=== PATIENT | male | born 1960 | race African-American/Black ===

== ENCOUNTER 2021-05-24 11:40 | Emergency (ER) | payer MEDICARE, MEDICAID, SELFPAY ==
[2021-05-24 11:40] VITALS: BP 168/110; PULSE 84; RESP 16; TEMP 36.8; O2SAT 97; BMI 36.2
--- NOTE | 2021-05-24 11:47 | CT_ITS ---
STUDY: CT CERVICAL SPINE WITHOUT CONTRAST REASON FOR EXAM: Male, 61 years old. Injury due to a fall. RADIATION DOSAGE (If Supplied By Facility): CTDIvol = ( 27.40 ) mGy, DLP = ( 672.36 ) mGycm TECHNIQUE: High resolution transaxial imaging was performed without contrast material. Sagittal and coronal images were reconstructed. Individualized dose optimization techniques were used for this CT. COMPARISON: None FINDINGS: Normal craniovertebral junction. Normal anterior atlantoaxial articulation. Normal odontoid process. There is straightening of the normal cervical lordosis. Normal vertebral bodies and posterior osseous elements. C2-3: Normal endplates. Normal disc height and morphology. Normal central canal and intervertebral neuroforamina. C3-4: Mild degree of disc space narrowing. Uncovertebral arthrosis. Mild degree of bilateral neural foraminal stenosis. C4-5: Mild degree of disc space narrowing. Uncovertebral arthrosis. Mild to moderate degree of bilateral neural foraminal stenosis. C5-6: Marked degree of disc space narrowing. Uncovertebral arthrosis. Facet joint osteoarthritis. Moderate degree of bilateral neural foraminal stenosis worse on the right side. C6-7: Marked degree of disc space narrowing. Spondylosis. Uncovertebral arthrosis. Bilateral neural foraminal stenosis. C7-T1: Normal endplates. Normal disc height and morphology. Normal central canal and intervertebral neuroforamina. Normal visualized soft tissue structures. CT/Spine Cervical without Contras IMPRESSION: Multilevel degenerative changes, as described above. Electronically Signed: Juan Ramon Munoz MD at 12:42 EDT , Service support ,
--- NOTE | 2021-05-24 11:47 | CT_ITS ---
STUDY: CT ABDOMEN AND PELVIS WITH CONTRAST REASON FOR EXAM: Male, 61 years old. Abdominal distention. Recent fall. RADIATION DOSAGE (If Supplied By Facility): CTDIvol = ( 23.53 ) mGy, DLP = ( 1974.28 ) mGycm TECHNIQUE: Transaxial images were obtained from the dome of the diaphragm to the symphysis pubis without oral contrast. IV 100mL Isovue-370 was administered. Sagittal and coronal images were reconstructed. Individualized dose optimization techniques were used for this CT. COMPARISON: None. FINDINGS: Minimal degree of increased markings at the lung bases suggestive of linear atelectasis and/or scarring. The visualized portions of the heart are within normal limits. There is decreased attenuation of the liver consistent with steatosis. Normal gallbladder and extrahepatic biliary system. Normal spleen. Normal pancreas. Normal bilateral adrenal glands. Normal right kidney. Normal left kidney. There is a small hiatal hernia. Mildly dilated fluid-filled small bowel loops. Large amount of fecal material is seen in the colon. There is gaseous distention of the transverse colon. The appendix is visualized and appears normal. Normal abdominal aorta. Normal inferior vena cava. Normal retroperitoneum. Normal urinary bladder. There are prostatic calcifications. Normal abdominal wall. There are mild degenerative changes of the visualized lumbar spine. Right intramammary tino fixation of the femur. CT/Abdomen/Pelvis W IV Cont ONLY IMPRESSION: Large amount of fecal material is seen throughout the colon. Minimally fluid distended small bowel loops. Fatty infiltration of the liver. Electronically Signed: Juan Ramon Munoz MD at 13:02 EDT , Service support ,
--- NOTE | 2021-05-24 11:47 | CT_ITS ---
STUDY: CT BRAIN WITHOUT CONTRAST REASON FOR EXAM: Male, 61 years old. Head injury following a fall. RADIATION DOSAGE (If Supplied By Facility): CTDIvol = ( 44.99 ) mGy, DLP = ( 812.98 ) mGycm TECHNIQUE: Transaxial CT imaging of the brain was performed without administration of intravenous contrast material. Individualized dose optimization techniques were used for this CT. COMPARISON: No relevant priors. FINDINGS: Normal soft tissue structures. Normal calvarium. There is mild cerebral atrophy with widening of the extra-axial spaces and ventricular dilatation. Normal white matter tracts of the cerebral hemispheres. There are small punctate calcifications of the basal ganglia which are seen in the aging brain as a normal variant. Normal brainstem. Normal cerebellum. There is no intracranial hemorrhage. There are no findings of an acute ischemic infarction. Nondisplaced nasal fracture. CT/Brain/Head without Contrast IMPRESSION: Chronic involutional changes of the brain. Nondisplaced nasal fracture. Electronically Signed: Juan Ramon Munoz MD at 12:40 EDT , Service support ,
--- NOTE | 2021-05-24 11:48 | EDS_ITS ---
HPI History of Present Illness Chief Complaint: Head Injury Informant: patient Narrative Narrative: 61-year-old male brought in by EMS from long-term care [facility]. Reportedly has been more lethargic this week and this morning some labs that were drawn yesterday morning returned and showed a elevated ammonia level (57). He apparently fell this morning striking his face on a metal bench. He then had some vomiting. They held his psychiatric medications so that would not mask evaluation for head injury. EMS notes he was initially combative for them but in route calm down and fell asleep. EMS notes the laceration on his nose was glued at the facility. Patient according to the chart has a history of alcohol abuse but no formal diagnosis of cirrhosis. Caregiver in the room states that his abdomen seems more distended than normal. [facility] Medical History (Updated 05/24/21 @ 13:[address] Gabriel Trinidad, ) Alcohol abuse Anemia Antisocial personality disorder Anxiety Bipolar disorder CAD (coronary artery disease) Chronic ischemic heart disease Cognitive communication disorder Constipation COPD (chronic obstructive pulmonary disease) Dementia Depression Gout Hypertension Impulse disorder Incontinence of urine Insomnia Mild intellectual disabilities Muscle weakness Obesity Other specified degenerative disorders of nervous system in diseases classified elsewhere Psychotic disorder PVD (peripheral vascular disease) Schizoaffective disorder Schizophrenia Substance abuse Urinary tract infection Violent behavior Home Medications allopurinol 300 mg PO DAILY 05/24/21 [History Last Taken Unknown] aspirin 81 mg PO DAILY 05/24/21 [History Last Taken Unknown] atorvastatin 40 mg PO QHS 05/24/21 [History Last Taken Unknown] benztropine 1 mg PO BID 05/24/21 [History Last Taken Unknown] carvedilol 12.5 mg PO BID 05/24/21 [History Last Taken Unknown] cholecalciferol (vitamin D3) 1,250 mcg PO QWEEK 05/24/21 [History Last Taken Unknown] clonazepam [Klonopin] 1 mg PO 4X/DAY 05/24/21 [History Last Taken Unknown] diltiazem HCl 180 mg PO DAILY 05/24/21 [History Last Taken Unknown] lactulose 20 g PO BID 05/24/21 [History Last Taken Unknown] lamotrigine [Lamictal] 150 mg PO BID 05/24/21 [History Last Taken Unknown] olanzapine 10 mg PO BID 05/24/21 [History Last Taken Unknown] oxcarbazepine 300 mg PO BID 05/24/21 [History Last Taken Unknown] quetiapine 400 mg PO BID 05/24/21 [History Last Taken Unknown] tamsulosin 0.4 mg PO DAILY 05/24/21 [History Last Taken Unknown] trazodone 50 mg PO BID 05/24/21 [History Last Taken Unknown] venlafaxine 150 mg PO DAILY 05/24/21 [History Last Taken Unknown] ziprasidone HCl [Geodon] 20 mg PO Q6H 05/24/21 [History Last Taken Unknown] ziprasidone mesylate [Geodon] 20 mg IM Q6H PRN 05/24/21 [History Last Taken Unknown] Allergy/AdvReac Type Severity Reaction Status Date / Time haloperidol [From Haldol] Allergy NEEDS Verified 05/24/21 11:45 FOLLOW-UP Social History (Updated 05/24/21 @ 11:54 by Rosa Maria Washington) housing: detention Smoking Status: Current every day smoker tobacco type: cigarettes substance use type: crack/cocaine ROS ROS ED Review of Systems ROS Unobtainable: due to mental status EXAM Physical Exam Const Vital Signs: 05/24/21 11:40 05/24/21 11:45 05/24/21 11:49 Temperature 98.3 F 98.3 F Temperature Source Oral Oral Pulse Rate 84 84 Respiratory Rate 16 16 Respiratory Effort Normal Non-Labored Blood Pressure 168/110 H 168/110 H Blood Pressure Mean 129 129 Pulse Ox 97 97 Oxygen Delivery Method Room Air Room Air 05/24/21 13:13 Temperature Temperature Source Pulse Rate 86 Respiratory Rate 16 Respiratory Effort Blood Pressure 162/89 H Blood Pressure Mean 113 Pulse Ox Oxygen Delivery Method Positive well nourished and well developed General Appearance ED: well developed HEENT Reports normocephalic, head/scalp atraumatic and moist mucous membranes HEENT Narrative: There is a laceration to the bridge of the nose that has been glued. There is no septal hematoma noted. Patient is a dentulous. Mild contusion noted on the right lower lip midface appears stable trauma Eyes PERRL and EOMs intact bilaterally Neck no lymphadenopathy, supple and no JVD Resp normal respiratory effort and clear to auscultation bilaterally Cardio regular rate, regular rhythm and no murmurs GI normal to inspection, nondistended, normoactive bowel sounds and non-tender Palpation: soft Back/Spine no CVA tenderness and normal ROM Extremity normal to inspection General Extremety ED: Negative for edema General Extremity: Negative for edema Neuro CN's II-XII intact bilaterally Neuro Narrative: Patient can follow commands. Sensorium / Orientation: alert Motor Exam: strength 5/5 throughout Psych Mood & Affect: Negative for depressed or tearful Skin no rashes or lesions noted and no wounds MDM MDM MDM Narrative Medical decision making narrative: CT the brain and cervical spine demonstrated a nasal fracture. No intracranial hemorrhage or cervical spine fracture. CT abdomen pelvis is consistent with constipation and increased air. His CBC shows a hemoglobin 12.6 but normal platelets. Liver enzymes are normal. His a ammonia level is normal at 15. The wound was already glued before he arrived. Patient will be discharged home instructions to follow-up with his doctor return if worsening or concerns Lab Data Attestation: I reviewed the patient's lab results. Labs: Laboratory Results - last 24 hr 05/24/21 05/24/21 05/24/21 12:05 12:05 12:05 WBC 8.3 RBC 4.35 L Hgb 12.6 L Hct 39.2 L MCV 90.1 MCH 29.0 MCHC 32.1 RDW Std Deviation 46.0 H RDW Coeff of José 13.9 Plt Count 243 MPV 9.7 Immature Gran % (Auto) 0.700 Neut % (Auto) 63.8 Lymph % (Auto) 17.3 L [place] % (Auto) 10.4 H Eos % (Auto) 7.4 H Baso % (Auto) 0.4 Absolute Neuts (auto) 5.3 Absolute Lymphs (auto) 1.44 Nucleated RBC % 0 PT 14.0 INR 1.1 APTT 26.9 Sodium 143 Potassium 3.4 L Chloride 105 Carbon Dioxide 33.0 H Anion Gap 5 BUN 18 Creatinine 1.31 H Estim Creat Clear Calc 66.92 Est GFR (MDRD) Af Amer 72 Est GFR (MDRD) Non-Af 59 L BUN/Creatinine Ratio 13.7 Glucose 125 H Calcium 8.8 Total Bilirubin 0.40 AST 21 ALT 48 Alkaline Phosphatase 109 Ammonia Total Protein 7.3 Albumin 3.8 Globulin 3.5 Albumin/Globulin Ratio 1.1 05/24/21 12:05 WBC RBC Hgb Hct MCV MCH MCHC RDW Std Deviation RDW Coeff of José Plt Count MPV Immature Gran % (Auto) Neut % (Auto) Lymph % (Auto) [place] % (Auto) Eos % (Auto) Baso % (Auto) Absolute Neuts (auto) Absolute Lymphs (auto) Nucleated RBC % PT INR APTT Sodium Potassium Chloride Carbon Dioxide Anion Gap BUN Creatinine Estim Creat Clear Calc Est GFR (MDRD) Af Amer Est GFR (MDRD) Non-Af BUN/Creatinine Ratio Glucose Calcium Total Bilirubin AST ALT Alkaline Phosphatase Ammonia 15.0 Total Protein Albumin Globulin Albumin/Globulin Ratio Radiography Diagnostic Testing: Radiology Impression Abdomen/Pelvis CT 05/24/21 11:47 IMPRESSION: Large amount of fecal material is seen throughout the colon. Minimally fluid distended small bowel loops. Fatty infiltration of the liver. Electronically Signed: Juan Ramon Munoz MD at 13:02 EDT , Service support , Brain CT 05/24/21 11:47 IMPRESSION: Chronic involutional changes of the brain. Nondisplaced nasal fracture. Electronically Signed: Juan Ramon Munoz MD at 12:40 EDT , Service support , Cervical Spine CT 05/24/21 11:47 IMPRESSION: Multilevel degenerative changes, as described above. Electronically Signed: Juan Ramon Munoz MD at 12:42 EDT , Service support , Discharge Plan Triage Chief Complaint: Head Injury ED Provider: Gabriel Trinidad Dx/Rx/DC Orders Clinical Impression: Fracture, nasal, Laceration of nose, Constipation Instructions: ED Nose Fracture, with X-Ray Prescriptions: No Action atorvastatin 40 mg Tablet 40 mg PO QHS RF: 0 lamotrigine [Lamictal] 150 mg Tablet 150 mg PO BID RF: 0 carvedilol 12.5 mg Tablet 12.5 mg PO BID RF: 0 diltiazem HCl 180 mg Capsule,Extended Release 24 Hr 180 mg PO DAILY RF: 0 trazodone 50 mg Tablet 50 mg PO BID RF: 0 clonazepam [Klonopin] 1 mg Tablet 1 mg PO 4X/DAY RF: 0 venlafaxine 150 mg Capsule,Extended Release 24hr 150 mg PO DAILY RF: 0 olanzapine 10 mg Tablet 10 mg PO BID RF: 0 oxcarbazepine 300 mg Tablet 300 mg PO BID RF: 0 ziprasidone HCl [Geodon] 20 mg Capsule 20 mg PO Q6H RF: 0 tamsulosin 0.4 mg Capsule 0.4 mg PO DAILY RF: 0 benztropine 1 mg Tablet 1 mg PO BID RF: 0 aspirin 81 mg Tablet,Chewable 81 mg PO DAILY RF: 0 allopurinol 300 mg Tablet 300 mg PO DAILY RF: 0 ziprasidone mesylate [Geodon] 20 mg/mL (final conc.) Recon Soln 20 mg IM Q6H PRN (Reason: AGITATION) RF: 0 quetiapine 400 mg Tablet 400 mg PO BID RF: 0 cholecalciferol (vitamin D3) 1,250 mcg (50,000 unit) Capsule 1,250 mcg PO QWEEK RF: 0 lactulose 20 gram/30 mL Solution 20 g PO BID RF: 0 Primary Care Provider: Remington Kellogg Referrals: Remington Kellogg MD [Primary Care Provider] - As soon as possible Activity Restrictions/Additional Instructions: A copy of your labs will be sent with your paperwork. You have a nasal fracture that is not displaced. There is no signs of intracranial bleeding skull fracture or cervical spine fracture. Your ammonia level was normal. Disposition Disposition: Home, Self Care
[2021-05-24 11:49] VITALS: BP 168/110; PULSE 84; RESP 16; TEMP 36.8; O2SAT 97
[2021-05-24 12:17] LABS: Absolute Lymphocyte Count 1.44 X10^3/uL (0.83-4.51); Absolute Neutrophil Count 5.3 X10^3/uL (2.0-7.7); Basophil# 0.03 X10^3/uL; Basophil% 0.4 % (0-1); Eosinophil# 0.62 X10^3/uL; Eosinophils% 7.4 % (0-5); Hematocrit 39.2 % (40-54); Hemoglobin 12.6 g/dL (13.0-16.5); Lymphocyte # 1.44 X10^3/ul (0.83-4.51); Lymphocyte % 17.3 % (19-41); Mean Corp Hgb Conc 32.1 g/dL (32-36); Mean Corpuscular Volume 90.1 fL (80-94); Mean Platelet Vol. 9.7 fl (6.2-12.0); Monocyte# 0.87 X10^3/uL; Monocyte% 10.4 % (0-10); NRBC Flagged by Analyzer 0 % (0-5); Neutrophil # 5.31 X10^3/uL (2.7-7.7); Neutrophil % 63.8 % (47-70); Platelet Count 243 K/mm3 (150-450); RBC Distribution Width CV 13.9 % (11.6-14.6); Red Blood Count 4.35 M/mm3 (4.6-6.2); White Blood Count 8.3 K/mm3 (4.4-11.0)
[2021-05-24 12:21] LABS: International Normalized Ratio 1.1; Partial Thromboplast Time 26.9 Seconds (24.1-36.2)
[2021-05-24 12:28] LABS: ALB/GLOB Ratio 1.1 RATIO (0.9-2.4); AST(SGOT) 21 U/L (15-37); Alanine Aminotransfer ALT/SGPT 48 U/L (16-61); Albumin, Serum 3.8 g/dL (3.2-5.0); Alkaline Phosphatase 109 U/L (45-117); Anion Gap 5 (5-15); BUN 18 mg/dL (7-18); BUN/Creat Ratio 13.7 RATIO (10-20); Calcium,Total 8.8 mg/dL (8.5-10.1); Chloride 105 mmol/L (98-107); Creatinine, Serum 1.31 mg/dL (0.70-1.30); EST Glomerular Filtration Rate 59 mL/min (>60); Est Glom Filt Rate - Afr Amer 72 mL/min (>60); Estimated Creatinine Clearance 66.92 ml/min; Globulin 3.5 g/dL (2.2-4.2); Glucose 125 mg/dL (74-106); Potassium 3.4 mmol/L (3.5-5.1); Protein, Total 7.3 g/dL (6.4-8.2); Sodium Level 143 mmol/L (136-145)
[2021-05-24 13:13] VITALS: BP 162/89; PULSE 86; RESP 16
[2021-05-24 13:38] VITALS: BP 140/81; PULSE 85; RESP 19
--- NOTE | 2021-05-24 13:45 | ED.RN ---
REPORT GIVEN TO FACILITY STAFF MEMBER AT BEDSIDE.
--- NOTE | 2021-05-24 13:49 | NURSING ---
CALLED [facility], ETA IS 90 MIN
--- NOTE | 2021-05-24 16:07 | NURSING ---
PHYSICANS CALLED. CREW IS 30 MIN AWAY
== END 2021-05-24 16:52 | disposition home or self-care (01) ==
PROVIDERS: Emergency Provider Emergency Medicine; PCP Family Medicine
DX: S02.2XXA Fracture of nasal bones, initial encounter for closed fracture (principal); S01.21XA Laceration without foreign body of nose, initial encounter; K59.00 Constipation, unspecified; I25.10 Atherosclerotic heart disease of native coronary artery without angina pectoris; F17.210 Nicotine dependence, cigarettes, uncomplicated; I10 Essential (primary) hypertension; Z79.82 Long term (current) use of aspirin; Z79.899 Other long term (current) drug therapy; W19.XXXA Unspecified fall, initial encounter
CPT/HCPCS: 70450; 72125; 74177; 80053; 82140; 85025; 85610; 85730; 99285; Q9967; A4216

== ENCOUNTER → 2022-01-23 | Outpatient (REF) | payer SELFPAY | END | disposition home or self-care (01) | LOC: OLS.AHA 03:51 | PROVIDERS: PCP Family Medicine; Visit Provider Family Medicine | DX: D64.9 Anemia, unspecified (principal); F20.0 Paranoid schizophrenia; J44.9 Chronic obstructive pulmonary disease, unspecified; E72.20 Disorder of urea cycle metabolism, unspecified | CPT/HCPCS: 82140 ==

== ENCOUNTER → 2025-11-12 | Outpatient (CLI) | payer MEDICARE, MEDICAID, SELFPAY ==
--- NOTE | 2025-11-12 08:03 | CT_ITS ---
PROCEDURE: ABDOMEN/PELVIS WITH CONTRAST 11/12/2025 REASON FOR EXAM: MODERATE PROTEIN-CALORIE MALNUTRITION TECHNIQUE: Procedure Code: [id number] Modality: CT Procedure: ABDOMEN/PELVIS WITH CONTRAST Coronal and Sagittal reconstruction series were provided. CONTRAST: Isovue 370 VOLUME: 75 mL One or more dose reduction techniques were used (e.g., Automated exposure control, adjustment of the mA and/or kV according to patient size, use of iterative reconstruction technique. RADIATION DOSE SUMMARY: CTDlvol: 17.73 mGy DLP: 999.28 mGycm COMPARISON: CT abdomen and pelvis 05/24/2021. FINDINGS: Lung bases: Atelectasis in the lung bases. Liver: Unremarkable. Gallbladder: Unremarkable. Spleen: Unremarkable. Pancreas: Unremarkable. Adrenals: Unremarkable. Kidneys: No hydronephrosis. No nephrolithiasis. Bladder: Unremarkable. Reproductive Organs: Unremarkable. Bowel: No bowel wall thickening. No bowel obstruction. Large amount of fecal load. Appendix: Unremarkable. Lymph nodes: No lymphadenopathy. Vasculature: No aneurysm. Peritoneum / Retroperitoneum: No free air or free fluid. Bones: No acute bony abnormalities. CT/Abdomen/Pelvis WITH Contrast IMPRESSION: Unremarkable CT scan of the abdomen and pelvis. Reading Location: [facility]
--- OUTSIDE RECORDS SUMMARY | 2025-11-12 08:12 | XMS RPT_ITS | CCD ---
Author Organization [facility] Care Team Providers Care Technical Staff Engineer Name Role Phone [facility] Lino Primary Care Provider CELESTINA, LINO Primary Care Unavailable CLIMO, ANDREI Referring Unavailable CLIMO, ANDREI Referring Unavailable BIROS, LINO Primary Care Unavailable CLIMO, ANDREI Referring Unavailable BIROS, LINO Primary Care Unavailable CLIMO, ANDREI Referring Unavailable BIROS, LINO Primary Care Unavailable CLIMO, ANDREI Referring Unavailable BIROS, LINO Primary Care Unavailable BIROS, LINO Primary Care Unavailable JON KERR Referring Unavailable BIROS, LINO Primary Care Unavailable JON KERR Referring Unavailable BIROS, LINO Primary Care Unavailable JON KERR Referring Unavailable BIROS, LINO Primary Care Unavailable CLIMO, ANDREI Referring Unavailable BIROS, LINO Primary Care Unavailable CLIMO, ANDREI Referring Unavailable BIROS, LINO Primary Care Unavailable CLIMO, ANDREI Referring Unavailable CLIMO, ANDREI Referring Unavailable BIROS, LINO Primary Care Unavailable CLIMO, ANDREI Referring Unavailable BIROS, LINO Primary Care Unavailable CLIMO, ANDREI Referring Unavailable BIROS, LINO Primary Care Unavailable BIROS, LINO Primary Care Unavailable JON KERR Referring Unavailable CLIMO, ANDREI Referring Unavailable BIROS, LINO Primary Care Unavailable BIROS, LINO Primary Care Unavailable CLIMO, ANDREI Referring Unavailable CLIMO, ANDREI Referring Unavailable BIROS, LINO Primary Care Unavailable BIROS, LINO Primary Care Unavailable CLIMO, ANDREI Referring Unavailable BIROS, LINO Primary Care Unavailable CLIMO, ANDREI Referring Unavailable CLIMO, ANDREI Referring Unavailable BIROS, LINO Primary Care Unavailable BIROS, LINO Primary Care Unavailable JON KERR Referring Unavailable CLIMO, ANDREI Referring Unavailable BIROS, LINO Primary Care Unavailable BIROS, LINO Primary Care Unavailable CLIMO, ANDREI Referring Unavailable BIROS, LINO Primary Care Unavailable CLIMO, ANDREI Referring Unavailable CLIMO, ANDREI Referring Unavailable BIROS, LINO Primary Care Unavailable BIROS, LINO Primary Care Unavailable CLIMO, ANDREI Referring Unavailable Biros, Lino Primary Care Provider [phone] BIROS, LINO Primary Care Unavailable VIANEY, HARRIET Attending Unavailable VIANEY HARRIET Admitting Unavailable BIROS, LINO Primary Care Unavailable CURRY DAVIS Attending Unavailable Claudinechka, Dirk N Primary Care Provider [phone] URBANO DIRK N Primary Care Unavailable BANEGAS, PAXTON KGómez Admitting Unavailable BANEGAS, PAXTON K. Consulting Unavailable BANEGAS, PAXTON KGómez Attending Unavailable RACHELLE SHAIKH Consulting Unavailable LAURYN COTTO Attending Unavailable CLAUDINECHKA, DIRK N Primary Care Unavailable SYSTEM, PROVIDER NOT IN Referring Unavaila ble CLAUDINECHKA, DIRK N Primary Care Unavailable ILLERIC Admitting Unavailable REVILLERIC Attending Unavailable Bir, Lino Primary Care Provider VIPUL SANTOS Admitting Unavailable VIPUL SANTOS Attending Unavailable VIPUL SANTOS Surgeon Unavailable CLIMO, ANDREI Primary Care Unavailable CLIMO, ANDREI Referring Unavailable AR Procedure Practitioner Unavailab SOLOMON Moffett Surgeon Unavailable AR Procedure Practitioner Unavailab Vipul Trejo Primary Care Unavailable Vipul Kellogg Attending Unavailable Vipul Kellogg Attending Unavailable Vipul Kellogg Primary Care Unavailable Allergies Allergy Classification Reported Allergen(s) Allergy Type Date of Onset Reaction(s) Facility Haloperidol (1 source) Haloperidol; Translations: [HALOPERIDOL] Drug Allergy [address] [facility] Repository (20 sources) Haloperidol Drug Allergy 4 Other (See Comments) [place] (20 sources) Haloperidol And Related Propensity to adverse reactions to drug 3 [place] (2 sources) Haloperidol Drug Allergy 1 NEEDS FOLLOW-UP [facility] (1 source) Haloperidol Drug Allergy 7 [facility] Repository (1 source) Haloperidol Drug Allergy 1 [facility] Repository Medications Current Medications Medication Drug Class(es) Dates Sig (Normalized) Sig (Original) allopurinol 300 mg oral tablet (3 sources) Xanthine Oxidase Inhibitor Start: 05-24-2021 take 300 mg by mouth once daily Allopurinol Active 300 MG PO DAILY May 24, 2021 12:05pm take 1 tablet by mouth once starla y allopurinoL (ZYLOPRIM) 300 MG tablet Take 300 mg by mouth daily . 0 Active aspirin 81 mg chewable tablet (3 sources) Platelet Aggregation Inhibitor, Nonsteroidal Anti-inflammatory Drug Start: 05-24-2021 take 81 mg by mouth once daily Aspirin Active 81 MG PO DAILY May 24, 2021 12:05pm take 1 tablet by mouth once starla y aspirin 81 MG EC tablet Take 81 mg by mouth daily . 0 Active atorvastatin 40 mg oral tablet (3 sources) HMG-CoA Reductase Inhibitor Start: 05-24-2021 take 40 mg by mouth at bedtime Atorvastatin Active 40 MG PO AT BEDTIME May 24, 2021 12:05pm take 1 tablet by mouth at bedtim e atorvastatin (LIPITOR) 40 MG tablet Take 40 mg by mouth at bedtime . 0 Active benztropine mesylate 1 mg oral tablet (20 sources) Anticholinergic, Antihistamine Start: 05-24-2021 take 1 mg by mouth twice daily Benztropine Active 1 MG PO TWICE A DAY May 24, 2021 12:05pm take 1 tablet by mouth twice daisy ly benztropine (COGENTIN) 1 MG tablet Take 1 mg by mouth 2 (two) times a day . 0 Active bisacodyl 10 mg rectal suppository (1 source) Stimulant Laxative take 10 mg rectal route once daily as needed for constipation bisacodyl (DULCOLAX) [address] 10 mg rectally daily as needed for Constipation (if no relief from MOM) 0 Active carvedilol 12.5 mg oral tablet (3 sources) alpha-Adrenergic Sherley, beta-Adrenergic Sherley Start: 05-24-20 take 12.5 mg by mouth twice daily Carvedilol Active 12.5 MG PO TWICE A DAY May 24, 2021 12:05pm take 1 tablet by mouth twice daisy ly carvediloL (COREG) 12.5 MG tablet Take 12.5 mg by mouth 2 (two) times a day . 0 Active cholecalciferol 1.25 mg oral capsule (1 source) Vitamin D Start: 05-24-2021 take 1250 ug by mouth every week Cholecalciferol (Vitamin D3) Active 1250 MCG PO EVERY WEEK May 24, 2021 12:05pm clonazePAM 1 mg oral tablet (20 sources) Benzodiazepine Start: 05-24-2021 take 1 tablet by mouth four times daily Clonazepam (Klonopin) 1 mg Tablet Active 1 MG PO 4 TIMES DAILY May 24, 2021 12:05pm take 1 tablet by mouth three charley es daily clonazePAM (KLONOPIN) 1 MG tablet Take 1 mg by mouth 3 times daily. 0 Active take 2 tablets by mouth four charley es daily clonazePAM (KLONOPIN) 0.5 MG tablet Take 1 mg by mouth 4 times daily . 0 Active 24 hr desvenlafaxine succinate 100 mg extended release oral tablet (20 sources) Serotonin and Norepinephrine Reuptake Inhibitor take 1 tablet by mouth once daily desvenlafaxine succinate (PRISTIQ) 100 MG TB24 extended release tablet Take 100 mg by mouth daily 0 Active 24 hr dilTIAZem hydrochloride 180 mg extended release oral capsule (20 sources) Calcium Channel Sherley Start: take 180 mg by mouth once daily Diltiazem Hcl Active 180 MG PO DAILY May 24, 2021 12:05pm Start: 03-01-2021 End: 03-31-2021 take 1 capsule by mouth once daily diltiazem (CARDIZEM CD) 180 MG 24 hr capsule Take 1 (one) capsule (180 mg total) by mouth daily Start: 03/01/21. 30 capsule 0 03/01/2021 03/31/2021 Active End: 01-26-2021 take 1 capsule by mouth once daily diltiazem (CARDIZEM CD) 180 MG extended release capsule Take 180 mg by mouth daily 0 01/26/2021 Discontinued (LIST CLEANUP) End: 01-26-2021 take 1 tablet by mouth four times daily diltiazem (CARDIZEM) 90 MG tablet Take 90 mg by mouth 4 times daily 0 01/26/2021 Discontinued (LIST CLEANUP) lactulose 667 mg/ml oral solution (20 sources) Osmotic Laxative Start: 05-24-2021 take 20 g by mouth twice daily Lactulose Active 20 GM PO TWICE A DAY May 24, 2021 12:05pm take 20 g by mouth twice daily l actulose (CHRONULAC) 10 GM/15ML solution Take 20 g by mouth 2 times daily 0 Active take 30 g by mouth three times d aily lactulose (CHRONULAC) 10 GM/15ML solution Take 30 g by mouth 3 times daily 0 Active lamoTRIgine 150 mg oral tablet (3 sources) Mood Stabilizer, Anti-epileptic Agent Start: 05-24-2021 take 1 tablet by mouth twice daily Lamotrigine (Lamictal) 150 mg Tablet Active 150 MG PO TWICE A DAY May 24, 2021 12:05pm take 1 tablet by mouth twice daisy ly lamoTRIgine (LAMICTAL) 150 MG tablet Take 150 mg by mouth 2 (two) times a day . 0 Active lubiprostone 0.024 mg oral capsule (2 sources) Chloride Channel Activator take 1 capsule by mouth once daily at breakfast lubiprostone (AMITIZA) 24 MCG capsule Take 24 mcg by mouth daily with breakfast . 0 Active magnesium hydroxide 80 mg/ml oral suspension (1 source) take 30 mL by mouth once daily as needed for constipation magnesium hydroxide (MILK OF MAGNESIA) 400 MG/5ML suspension Take 30 mLs by mouth daily as needed for Constipation 0 Active OLANZapine 10 mg oral tablet (20 sources) Atypical Antipsychotic Start: 021 take 10 mg by mouth twice daily Olanzapine Active 10 MG PO TWICE A DAY May 24, 2021 12:05pm Start: 10-31-2015 End: 01-26-2021 take 1 tablet by mouth once daily OLANZapine (ZYPREXA) 20 MG tablet Take 1 tablet by mouth nightly 30 tablet 0 10/31/2015 01/26/2021 Discontinued (DOSE ADJUSTMENT) take 1 tablet by tu th twice daily OLANZapine (ZYPREXA) 10 MG tablet Take 10 mg by mouth 2 (two) times a day . 0 Active OXcarbazepine 300 mg oral tablet (3 sources) Anti-epileptic Agent Start: 05-24-2021 take 300 mg by mouth twice daily Oxcarbazepine Active 300 MG PO TWICE A DAY May 24, 2021 12:05pm take 1 tablet by mouth twice daisy ly OXcarbazepine (TRILEPTAL) 300 MG tablet Take 300 mg by mouth 2 (two) times a day . 0 Active polyethylene glycol 3350 92804 mg powder for oral solution (1 source) Osmotic Laxative take 17 g by mouth twice daily, then take 17 g by mouth polyethylene glycol (GLYCOLAX) 17 GM/SCOOP powder Take 17 g by mouth 2 times daily 0 Active QUEtiapine 400 mg oral tablet (3 sources) Atypical Antipsychotic Start: 05-24-20 take 400 mg by mouth twice daily Quetiapine Active 400 MG PO TWICE A DAY May 24, 2021 12:05pm take 1 tablet by mouth twice daisy ly QUEtiapine (SEROQUEL) 400 MG tablet Take 400 mg by mouth 2 (two) times a day . 0 Active sennosides, chcf 8.6 mg oral tablet (1 source) take 2 tablets by mouth twice daily senna (SENOKOT) 8.6 MG tablet Take 2 tablets by mouth 2 times daily 0 Active tamsulosin hydrochloride 0.4 mg oral capsule (3 sources) alpha-Adrenergic Sherley Start: 05-24-2021 take 0.4 mg by mouth once daily Tamsulosin Active 0.4 MG PO DAILY May 24, 2021 12:05pm take 1 capsule by [facility] once daily before breakfast tamsulosin (FLOMAX) 0.4 mg capsule Take 0.4 mg by mouth every morning before breakfast . 0 Active traZODone hydrochloride 50 mg oral tablet (1 source) Serotonin Reuptake Inhibitor Start: 05-24-2021 take 50 mg by mouth twice daily Trazodone Active 50 MG PO TWICE A DAY May 24, 2021 12:05pm 24 hr venlafaxine 150 mg extended release oral capsule (2 sources) Serotonin and Norepinephrine Reuptake Inhibitor Start: 05-24-2021 take 150 mg by mouth once daily Venlafaxine Active 150 MG PO DAILY May 24, 2021 12:05pm Start: 03-01-2021 End: 03-31-2021 take 1 capsule by mouth once daily at breakfast venlafaxine (EFFEXOR-XR) 150 MG 24 hr capsule Take 1 (one) capsule (150 mg total) by mouth daily with breakfast Start: 03/01/21. 30 capsule 0 03/01/2021 03/31/2021 Active ziprasidone 20 mg oral capsule (2 sources) Atypical Antipsychotic Start: 05-24-2021 take 1 capsule by mouth every six hours Ziprasidone Hcl (Geodon) 20 mg Capsule Active 20 MG PO EVERY 6 HOURS May 24, 2021 12:05pm Start: 05-24-2021 inject 20 mg by intr amuscular injection every six hours Ziprasidone Mesylate (Geodon) 20 mg/mL (final conc.) Recon Soln Active 20 MG IM EVERY 6 HOURS May 24, 2021 12:05pm Completed/Discontinued Medications Medication Drug Class(es) Dates Sig (Normalized) Sig (Original) acetaminophen 325 mg oral tablet (1 source) End: 02-02-20 take 2 tablets by mouth every six hours as needed for pain acetaminophen (TYLENOL) 325 MG tablet Take 650 mg by mouth every 6 hours as needed for Pain or Fever 0 02/01/2021 Discontinued (Stop Taking at Discharge) cranberry preparation 450 mg oral tablet (1 source) Non-Standardized Food Allergenic Extract, Non-Standardized Plant Allergenic Extract End: 02-02-20 take 1 tablet by mouth three times daily Cranberry 450 MG TABS Take 450 mg by mouth 3 times daily 0 02/01/2021 Discontinued (Stop Taking at Discharge) hydroCHLOROthiazide 25 mg oral tablet (20 sources) Thiazide Diuretic End: 01-27-20 21 take 1 tablet by mouth once daily hydrochlorothiazide (HYDRODIURIL) 25 MG tablet Take 25 mg by mouth daily 0 01/26/2021 Discontinued (LIST CLEANUP) paliperidone (20 sources) Atypical Antipsychotic End: 01-27-20 21 take 1 tablet by mouth once daily in the morning paliperidone (INVEGA) 6 MG extended release tablet Take 6 mg by mouth every morning 0 01/26/2021 Discontinued (LIST CLEANUP) End: 01-26-2021 Paliperidone Palmitate (INVE GA SUSTENNA IM) Inject into the muscle every 30 days 0 01/26/2021 Discontinued (LIST CLEANUP) Paliperidone Pal mitate (INVEGA SUSTENNA IM) Inject into the muscle every 30 days 0 Active risperiDONE 3 mg oral tablet (20 sources) Atypical Antipsychotic End: 01-26-2021 take 1 tablet by mouth twice daily risperiDONE (RISPERDAL) 3 MG tablet Take 3 mg by mouth 2 times daily 0 01/26/2021 Discontinued (LIST CLEANUP) valproic acid 50 mg/ml oral solution (20 sources) Mood Stabilizer, Anti-epileptic Agent End: 01-26-2021 take 15 mL by mouth three times daily Valproate Sodium (VALPROIC ACID) 250 MG/5ML SOLN Take 15 mLs by mouth 3 times daily 0 01/26/2021 Discontinued (LIST CLEANUP) Problems Active Problems Problem Classification Problem Date Documented Da te Episodic/Chronic Alcohol-related disorders (20 sources) Alcohol dependence; Translations: [Alcohol dependence] Onset: 11-12-2013 08-29-2014 Chronic Anxiety disorders (2 sources) Anger reaction; Translations: [Anger reaction] Chronic Open wounds of head; neck; and trunk (1 source) Laceration of nose; Translations: [Laceration without foreign body of nose, initial encounter] Episodic Other gastrointestinal disorders (1 source) Constipation; Translations: [Constipation, unspecified] Episodic Schizophrenia and other psychotic disorders (20 sources) Schizoaffective disorder; Translations: [Psychotic disorder] Onset: 06-21-2014 Resolved: 08-15-2014 10-10-2015 Chronic Skull and face fractures (1 source) Fractured nasal bones; Translations: [Fracture of nasal bones, initial encounter for closed fracture] Episodic Substance-related disorders (20 sources) Cocaine dependence; Translations: [Cannabis dependence] Onset: 12-11-2013 Resolved: 12-19-2013 08-29-2014 Chronic Past or Other Problems Problem Classification Problem Date Documented Da te Episodic/Chronic Mood disorders (20 sources) 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 Comment on above: Order Comment: This test was performed under the FDA's Emergency Use Authorization (EUA). Testing was performed using the [employer] Babs SARS-CoV-2 RT-PCR AND Influenza A/B Nucleic Acid Test on the Babs Yaa System. This test has not been approved for use in asymptomatic patients and its performance in this patient population has not been evaluated. Negative results do not rule out the presence of SARS-CoV-2, influenza A, and/or influenza B. Fact sheets for the EUA can be found at the following links: For Healthcare Providers: https://www.fda.gov/media/984924/download For Patients: https://www.fda.gov/media/947944/download Performed By: #### L [id number] #### [facility] [address] [place], [place] [address] Krishna Morrison M.D. [id number] CBC with Diffon 01-26-2021 Abs. Basophil 0.00 k/uL Normal 0.0-0.2 [facility] Comment on above: Performed By: #### A RENNY FRANK, BEKAH #### [facility] [address] [place] [address]. [place] [address] Cash Accountant: Erasto Selby DO Abs.Neutrophil (Seg) 2.30 k/uL Normal 1.3-9.1 [facility] Comment on above: Performed By: #### A RENNY FRANK, CDP #### [facility] [address] [place] [phone] Cash Accountant: Erasto Selby DO Basophils/100 WBC (Bld) 1 % Normal 0-2 [facility] Comment on above: Performed By: #### A RENNY FRANK, CDP #### [facility] [address] [place] [phone] Cash Accountant: Erasto Selby DO Eosinophils (Bld) [#/Vol] 0.30 10*3/uL Normal 0.0-0.4 [facility] Comment on above: Performed By: #### A TALI FRANKX, CDP #### [facility] [place] [address] Cash Accountant: Erasto Selby DO Eosinophils/100 WBC (Bld) 4 % Normal 0-4 [facility] Comment on above: Performed By: #### A TALI FRANKX, CDP #### [facility] [place] [address] Cash Accountant: Erasto Selby DO Erythrocyte distribution width (RBC) [Ratio] 14.4 % Normal 11.5-14.9 [facility] Comment on above: Performed By: #### A TALI FRANKX, BEKAH #### [facility] [address] [place] [phone] Cash Accountant: Erasto Selby DO Hematocrit (Bld) [Volume fraction] 39.5 % Low 41-53 [facility] Comment on above: Performed By: #### A RENNY FRANK, BEKAH #### [facility] [address] [place] [phone] Cash Accountant: Erasto Selby DO Hemoglobin (Bld) [Mass/Vol] 13.2 g/dL Low 13.5-17.5 [facility] Comment on above: Performed By: #### A TALI FRANKX, CDP #### [facility] [address] [place] [phone] Cash Accountant: Erasto Selby DO Lymphocytes (Bld) [#/Vol] 2.80 10*3/uL Normal 1.0-4.8 [facility] Comment on above: Performed By: #### A ZAC CMPX, CDP #### [facility] [address] [place] [address] [place] [address] Cash Accountant: Erasto Selby DO Lymphocytes/100 WBC (Bld) 47 % High 24-44 [facility] Comment on above: Performed By: #### A TALI FRANKX, CDP #### [facility] [address] [place] [address] Cash Accountant: Erasto Selby DO MCH (RBC) [Entitic mass] 30.3 pg Normal 26-34 [facility] Comment on above: Performed By: #### A TALI FRANKX, CDP #### [facility] [place] [address] Cash Accountant: Erasto Selby DO MCHC (RBC) [Mass/Vol] 33.5 g/dL Normal 31-37 [facility] Comment on above: Performed By: #### A TALI FRANKX, BEKAH #### [facility] [place] [address] Cash Accountant: Erasto Selby DO MCV (RBC) [Entitic vol] 90.3 fL Normal 80-100 [facility] Comment on above: Performed By: #### A TALI FRANKX, BEKAH #### [facility] [place] [address] Cash Accountant: Erasto Selby DO Monocytes (Bld) [#/Vol] 0.50 10*3/uL Normal 0.1-1.3 [facility] Comment on above: Performed By: #### A TALI FRANKX, CDP #### [facility] [address] [place] [phone] Cash Accountant: Erasto Selby DO Monocytes/100 WBC (Bld) 9 % High 1-7 [facility] Comment on above: Performed By: #### A ZAC, TALIX, CDP #### [facility] [address] [place] [address] Cash Accountant: Erasto Selby DO Neutrophil (Seg) 39 % Normal 36-66 [facility] Comment on above: Performed By: #### A ZAC, CMPX, CDP #### [facility] [address] [facility] [place] [address] Cash Accountant: Erasto Selby DO Platelet mean volume (Bld) [Entitic vol] 7.6 fL Normal 6.0-12.0 [facility] Comment on above: Performed By: #### A RENNY FRANK, BEKAH #### [facility] [place] [address] Cash Accountant: Erasto Selby DO Platelets (Bld) [#/Vol] 203 10*3/uL Normal 150-450 [facility] Comment on above: Performed By: #### A TALI FRANKX, BEKAH #### [facility] [place] [address] Cash Accountant: Erasto Selby DO RBC (Bld) [#/Vol] 4.38 10*6/uL Low 4.5-5.9 [facility] Comment on above: Performed By: #### A TALI FRANKX, BEKAH #### [facility] [place] [address] Cash Accountant: Erasto Selby DO WBC (Bld) [#/Vol] 5.9 10*3/uL Normal 3.5-11.0 [facility] Comment on above: Performed By: #### A TALI FRANKX, BEKAH #### [facility] [place] [address] Cash Accountant: Erasto Selby DO Abs.Imm.Granulocyte NOT REPORTED Normal 0.00-0.30 [facility] Comment on above: Performed By: #### A LCB, CMPX, CDP #### [facility] [address] [facility] [place] [address] Cash Accountant: Erasto Selby DO Auto Diff Performed NOT REPORTED Normal [facility] Comment on above: Performed By: #### A LCB, CMPX, CDP #### [facility] [address] [facility] [place] [address] Cash Accountant: Erasto Selby DO Immature granulocytes (Bld) [#/Vol] NOT REPORTED Normal 0 [facility] Comment on above: Performed By: #### A LCB, CMPX, CDP #### [facility] [address] [place] [address] Cash Accountant: Erasto Selby DO NRBC Automated NOT REPORTED Normal [facility] Comment on above: Performed By: #### A LCB, CMPX, CDP #### [facility] [place] [address] Cash Accountant: Erasto Selby DO Platelets (Bld) [#/Vol] NOT REPORTED Normal [facility] Comment on above: Performed By: #### A LCB, CMPX, CDP #### [facility] [place] [address] Cash Accountant: Erasto Selby DO RBC morphology finding Nom (Bld) NOT REPORTED Normal [facility] Comment on above: Performed By: #### A LCB, CMPX, CDP #### [facility] [place] [address] Cash Accountant: Erasto Selby DO WBC Morphology NOT REPORTED Normal [facility] Comment on above: Performed By: #### A LCB, CMPX, CDP #### [facility] [place] [address] Cash Accountant: Erasto Selby DO Comp Metabolic Pr/rfx MGon 0 01-26-2021 (cont.) Normal [facility] Comment on above: Result Comment: Aver age GFR for 60-69 years old: 85 mL/min/1.73sq m Chronic Kidney Disease: <60 mL/min/1.73sq m Kidney failure: <15 mL/min/1.73sq m eGFR calculated using average adult body mass. Additional eGFR calculator available at: http://www.Fitsistant/multiple_crcl_2012.htm Performed By: #### A RENNY FRANK, CDP #### [facility] [address] [facility] [place] [address] Cash Accountant: Erasto Selby DO Albumin [Mass/Vol] 4.7 g/dL Normal 3.5-5.2 [facility] Comment on above: Performed By: #### A RENNY FRANK, BEKAH #### [facility] [address] [facility] [place] [address] Cash Accountant: Erasto Selby DO Alkaline Phos 113 U/L Normal 40-129 [facility] Comment on above: Performed By: #### A RENNY FRANK, CDP #### [facility] [address] [facility] [place] [address] Cash Accountant: Erasto Selby DO ALT [Catalytic activity/Vol] 16 U/L Normal 5-41 [facility] Comment on above: Performed By: #### A RENNY FRANK, CDP #### [facility] [address] [facility] [place] [address] Cash Accountant: Erasto Selby DO Anion gap [Moles/Vol] 8 mmol/L Low 9-17 [facility] Comment on above: Performed By: #### A RENNY FRANK, CDP #### [facility] [address] [facility] [place] [address] Cash Accountant: Erasto Selby DO AST [Catalytic activity/Vol] 21 U/L Normal <40 [facility] Comment on above: Performed By: #### A TALI FRANKX, CDP #### [facility] [address] [place] [address] Cash Accountant: Erasto Selby DO Bilirubin Ql (U) 0.26 mg/dL Low 0.3-1.2 [facility] Comment on above: Performed By: #### A TALI FRANKX, CDP #### [facility] [place] [address] Cash Accountant: Erasto Selby DO Calcium [Mass/Vol] 9.3 mg/dL Normal 8.6-10.4 [facility] Comment on above: Performed By: #### A TALI FRANKX, BEKAH #### [facility] [place] [address] Cash Accountant: Erasto Selby DO Chloride [Moles/Vol] 104 mmol/L Normal 98-107 [facility] Comment on above: Performed By: #### A TALI FRANKX, CDP #### [facility] [address] [place] [address]. [place] [address] Cash Accountant: Erasto Selby DO CO2 [Moles/Vol] 26 mmol/L Normal 20-31 [facility] Comment on above: Performed By: #### A TALI FRANKX, CDP #### [facility]0 [facility] [place] [address] Cash Accountant: Erasto Selby DO Creatinine [Mass/Vol] 0.96 mg/dL Normal 0.70-1.20 [facility] Comment on above: Performed By: #### A ZAC, TALIX, CDP #### [facility] [address] [place] [address]. [place] [address] Cash Accountant: Erasto Selby DO GFR, Amer >60 Normal >60 [facility] Comment on above: Performed By: #### A TALI FRANKX, CDP #### [facility] [address] [facility] [place] [address] Cash Accountant: Erasto Selby DO GFR,non Amer >60 Normal >60 [facility] Comment on above: Performed By: #### A ZAC, TALIX, CDP #### [facility] [address] [facility] [place] [address] Cash Accountant: Erasto Selby DO Glucose [Mass/Vol] 106 mg/dL High 70-99 [facility] Comment on above: Performed By: #### A TALI FRANKX, CDP #### [facility] [place] [address] Cash Accountant: Erasto Selby DO Potassium [Moles/Vol] 4.1 mmol/L Normal 3.7-5.3 [facility] Comment on above: Performed By: #### A TALI FRANKX, CDP #### [facility]0 [facility] [place] [address] Cash Accountant: Erasto Selby DO Protein [Mass/Vol] 7.1 g/dL Normal 6.4-8.3 [facility] Comment on above: Performed By: #### A TALI FRANKX, CDP #### [facility]0 [facility] [place] [address] Cash Accountant: Erasto Selby DO Sodium [Moles/Vol] 138 mmol/L Normal 135-144 [facility] Comment on above: Performed By: #### A ZAC, TALIX, CDP #### [facility] [place] [address] Cash Accountant: Erasto Selby DO Urea nitrogen [Mass/Vol] 13 mg/dL Normal 8-23 [facility] Comment on above: Performed By: #### A RENNY FRANK, CDP #### [facility] [address] [place] [address] Cash Accountant: Erasto Selby DO Albumin/Globulin [Mass ratio] NOT REPORTED Normal 1.0-2.5 [facility] Comment on above: Performed By: #### A RENNY FRANK, CDP #### [facility] [address] [place] [address] Cash Accountant: Erasto Selby DO BUN/CRE Ratio NOT REPORTED Normal 9-20 [facility] Comment on above: Performed By: #### A RENNY FRANK, BEKAH #### [facility] [address] [place] [address] Cash Accountant: Erasto Selby DO Staging: NOT REPORTED Normal [facility] Comment on above: Performed By: #### A RENNY FRANK, BEKAH #### [facility] [address] [place] [address] Cash Accountant: Erasto Selby DO Drugon 01-26-2021 Ethanol [Mass/Vol] mg/dL <10 mg/dL [facility] Work Phone: Ethanol Alcoholon 01-26-2021 Ethanol [Mass/Vol] mg/dL Normal <10 [facility] Comment on above: Performed By: #### A RENNY FRANK, CDP #### [facility] [address] [place] [address] Cash Accountant: Erasto Selby DO Ethanol percent <0.010 Normal [facility] Comment on above: Performed By: #### A RENNY FRANK, CDP #### [facility] [address] [place] [address] Cash Accountant: Erasto Selby DO Hematologyon 01-26-2021 Basophils (Bld) [#/Vol] 0.00 10*3/uL Clerk Work Phone: Basophils/100 WBC (Bld) 1 % 0 - 2 % Clerk Work Phone: Eosinophils (Bld) [#/Vol] 0.30 10*3/uL Clerk Work Phone: Eosinophils/100 WBC (Bld) 4 % 0 - 4 % Clerk Work Phone: Hematocrit (Bld) [Volume fraction] 39.5 % Low 41 - 53 % Clerk Work Phone: Hemoglobin (Bld) [Mass/Vol] 13.2 g/dL Low 13.5 - 17.5 g/dL Clerk Work Phone: Lymphocytes (Bld) [#/Vol] 2.80 10*3/uL Clerk Work Phone: Lymphocytes/100 WBC (Bld) 47 % High 24 - 44 % Clerk Work Phone: MCH (RBC) [Entitic mass] 30.3 pg 26 - 34 pg Clerk Work Phone: MCV (RBC) [Entitic vol] 90.3 fL 80 - 100 fL Clerk Work Phone: Monocytes (Bld) [#/Vol] 0.50 10*3/uL Clerk Work Phone: Monocytes/100 WBC (Bld) 9 % High 1 - 7 % Clerk Work Phone: Platelets (Bld) [#/Vol] NOT REPORTED Clerk Work Phone: Platelets (Bld) [#/Vol] 203 10*3/uL [facility] Work Phone: RBC (Bld) [#/Vol] 4.38 10*6/uL Low 4.5 - 5.9 m/uL S [facility] Work Phone: RBC morphology finding Nom (Bld) NOT REPORTED [facility] Work Phone: WBC (Bld) [#/Vol] NOT REPORTED per 100 WBC [facility] Work Phone: WBC (Bld) [#/Vol] 5.9 10*3/uL [facility] Work Phone: Metabolic Panelon 01-26-2021 Albumin [Mass/Vol] 4.7 g/dL 3.5 - 5.2 g/dL [facility] Work Phone: ALP [Catalytic activity/Vol] 113 U/L 40 - 129 U/L [facility] Work Phone: ALT [Catalytic activity/Vol] 16 U/L 5 - 41 U/L [facility] Work Phone: Anion gap [Moles/Vol] 8 mmol/L Low 9 - 17 mmol/L [facility] Work Phone: AST [Catalytic activity/Vol] 21 U/L <40 [facility] Work Phone: Calcium [Mass/Vol] 9.3 mg/dL 8.6 - 10.4 mg/dL [facility] Work Phone: Chloride [Moles/Vol] 104 mmol/L 98 - 107 mmol/L [facility] Work Phone: CO2 [Moles/Vol] 26 mmol/L 20 - 31 mmol/L [facility] Work Phone: Creatinine [Mass/Vol] 0.96 mg/dL 0.70 - 1.20 mg/dL [facility] Work Phone: GFR/1.73 sq M predicted among non-blacks MDRD (S/P/Bld) [Vol rate/Area] NOT REPORTED [facility] Work Phone: GFR/1.73 sq M predicted among non-blacks MDRD (S/P/Bld) [Vol rate/Area] [facility] Work Phone: Comment on above: Average GFR for 60-6 9 years old: 85 mL/min/1.73sq m Chronic Kidney Disease: <60 mL/min/1.73sq m Kidney failure: <15 mL/min/1.73sq m eGFR calculated using average adult body mass. Additional eGFR calculator available at: http://www.Fitsistant/multiple_crcl_2012.htm Glucose [Mass/Vol] 106 mg/dL High 70 - 99 mg/dL [facility] Work Phone: Potassium [Moles/Vol] 4.1 mmol/L 3.7 - 5.3 mmol/L [facility] Work Phone: Protein [Mass/Vol] 7.1 g/dL 6.4 - 8.3 g/dL [facility] Work Phone: Sodium [Moles/Vol] 138 mmol/L 135 - 144 mmol/L [facility] Work Phone: Urea nitrogen [Mass/Vol] 13 mg/dL 8 - 23 mg/dL [facility] Work Phone: Otheron 01-26-2021 SARS-CoV-2, Rapid Not Detected Not Detected [facility] Work Phone: Comment on above: Rapid NAAT: The specimen is NEGATIVE for SARS-CoV-2, the novel coronavirus associated with COVID-19. The ID NOW COVID-19 assay is designed to detect the virus that causes COVID-19 in patients with signs and symptoms of infection who are suspected of COVID-19. An individual without symptoms of COVID-19 and who is not shedding SARS-CoV-2 virus would expect to have a negative (not detected) result in this assay. Negative results should be treated as presumptive and, if inconsistent with clinical signs and symptoms or necessary for patient management, should be tested with an alternative molecular assay. Negative results do not preclude SARS-CoV-2 infection and should not be used as the sole basis for patient management decisions. Fact sheet for Healthcare Providers: https://www.Cannae.gov/media/091857/download Fact sheet for Patients: https://www.Cannae.gov/media/042238/download Methodology: Isothermal Nucleic Acid Amplification Specimen Description .NASOPHARYNGEAL SWAB [facility] Work Phone: Albumin/Globulin [Mass ratio] NOT REPORTED [facility] Work Phone: Bilirubin Ql (U) 0.26 mg/dL Low 0.3 - 1.2 mg/dL [facility] Work Phone: Bun/Cre Ratio NOT REPORTED [facility] Work Phone: Ethanol percent <0.010 % [facility] Work Phone: GFR >60 >60 mL/min [facility] Work Phone: GFR Non- >60 >60 mL/min [facility] Work Phone: Interpretation and review of laboratory results Abnormal [facility] Work Phone: Differential Type NOT REPORTED [facility] Work Phone: Erythrocyte distribution width (RBC) [Ratio] 14.4 % 11.5 - 14.9 % [facility] Work Phone: Immature granulocytes (Bld) [#/Vol] NOT REPORTED 0 % [facility] Work Phone: Interpretation and review of laboratory results Abnormal [facility] Work Phone: MCHC (RBC) [Mass/Vol] 33.5 g/dL 31 - 37 g/dL [facility] Work Phone: Platelet mean volume (Bld) [Entitic vol] 7.6 fL 6.0 - 12.0 fL [facility] Work Phone: Segmented neutrophils/100 WBC (Bld) 39 % 36 - 66 % [facility] Work Phone: Segs Absolute 2.30 [facility] Work Phone: WBC Morphology NOT REPORTED [facility] Work Phone: [id number] 01-26-2021 SARS-CoV-2,Rapid Not Detected Normal [facility] Comment on above: Result Comment: Rapid NAAT: The specimen is NEGATIVE for SARS-CoV-2, the novel coronavirus associated with COVID-19. The ID NOW COVID-19 assay is designed to detect the virus that causes COVID-19 in patients with signs and symptoms of infection who are suspected of COVID-19. An individual without symptoms of COVID-19 and who is not shedding SARS-CoV-2 virus would expect to have a negative (not detected) result in this assay. Negative results should be treated as presumptive and, if inconsistent with clinical signs and symptoms or necessary for patient management, should be tested with an alternative molecular assay. Negative results do not preclude SARS-CoV-2 infection and should not be used as the sole basis for patient management decisions. Fact sheet for Healthcare Providers: https://www.fda.gov/media/094510/download Fact sheet for Patients: https://www.fda.gov/media/865742/download Methodology: Isothermal Nucleic Acid Amplification Performed By: #### C OVRB #### [facility] [address] [place] [address] Cash Accountant: Erasto Selby DO Basic Metabolic Profon 12-15 (cont.) Normal [facility] Comment on above: Result Comment: Aver age GFR for 60-69 years old: 85 mL/min/1.73sq m Chronic Kidney Disease: <60 mL/min/1.73sq m Kidney failure: <15 mL/min/1.73sq m eGFR calculated using average adult body mass. Additional eGFR calculator available at: http://www.[employer] [place].[employer]/multiple_crcl_2012.htm Performed By: #### U RC #### [facility] [address] [place] [address] Cash Accountant: Aj Ramirez MD [address] [address] Cash Accountant: Riky Salamanca MD Anion gap [Moles/Vol] 13 mmol/L Normal 9-17 [facility] Comment on above: Performed By: #### U RC #### [facility] [address] [place] [address] Cash Accountant: Aj Ramirez MD [address] [address] Cash Accountant: Riky Salamanca MD Calcium [Mass/Vol] 9.4 mg/dL Normal 8.6-10.4 [facility] Comment on above: Performed By: #### U RC #### [facility] [address] [place] [address] Cash Accountant: Aj Ramirez MD [facility] [employer] [address] [place] [address] Cash Accountant: Riky Salamanca MD Chloride [Moles/Vol] 104 mmol/L Normal 98-107 [facility] Comment on above: Performed By: #### U RC #### [facility] [place] [address] Cash Accountant: Aj Ramirez MD [facility] [employer] [address] [place] [address] Cash Accountant: Riky Salamanca MD CO2 [Moles/Vol] 23 mmol/L Normal 20-31 [facility] Comment on above: Performed By: #### U RC #### [facility] [address] [place] [address] Cash Accountant: Aj Ramirez MD [facility] [employer] [address] [place] [address] Cash Accountant: Riky Salamanca MD Creatinine [Mass/Vol] 0.86 mg/dL Normal 0.70-1.20 [facility] Comment on above: Performed By: #### U RC #### [facility] [address] [place] [address] Cash Accountant: Aj Ramirez MD [facility] [employer] [address] [place] [phone] Cash Accountant: Riky Salamanca MD GFR, Amer >60 Normal >60 [facility] Comment on above: Performed By: #### U RC #### [facility] [address] [place] [address] Cash Accountant: Aj Ramirez MD [facility] [employer] [address] [place] [address] Cash Accountant: Riky Salamanca MD GFR,non Amer >60 Normal >60 [facility] Comment on above: Performed By: #### U RC #### [facility] [address] [place] [address] Cash Accountant: Aj Ramirez MD [facility] [employer] [address] [place] [address] Cash Accountant: Riky Salamanca MD Glucose [Mass/Vol] 135 mg/dL High 70-99 [facility] Comment on above: Performed By: #### U RC #### [facility] [address] [place] [address] Cash Accountant: Aj Ramirez MD [facility] [employer] [address] [place] [address] Cash Accountant: Riky Salamanca MD Potassium [Moles/Vol] 4.4 mmol/L Normal 3.7-5.3 [facility] Comment on above: Performed By: #### U RC #### [facility] [address] [place] [address] Cash Accountant: Aj Ramirez MD [address] [address] Cash Accountant: Riky Salamanca MD Sodium [Moles/Vol] 140 mmol/L Normal 135-144 [facility] Comment on above: Performed By: #### U RC #### [facility] [address] [place] [address] Cash Accountant: Aj Ramirez MD [address] [phone] Cash Accountant: Riky Salamanca MD Urea nitrogen [Mass/Vol] 8 mg/dL Normal 8-23 [facility] Comment on above: Performed By: #### U RC #### [facility] [address] [place] [address] Cash Accountant: Aj Ramirez MD [address] [address] Cash Accountant: Riky Salamanca MD BUN/CRE Ratio NOT REPORTED Normal 9-20 [facility] Comment on above: Performed By: #### U RC #### [facility] [address] [place] [address] Cash Accountant: Aj Ramirez MD [address] [address] Cash Accountant: Riky Salamanca MD Staging: NOT REPORTED Normal [facility] Comment on above: Performed By: #### U RC #### [facility] [address] [place], [place] [phone] Cash Accountant: Aj Ramirez MD [facility] [employer] [address] [place] [address] Cash Accountant: Riky Salamanca MD Metabolic Panelon 12-15-2020 Anion gap [Moles/Vol] 13 mmol/L 9 - 17 mmol/L [facility] Work Phone: Calcium [Mass/Vol] 9.4 mg/dL 8.6 - 10.4 mg/dL [facility] Work Phone: Chloride [Moles/Vol] 104 mmol/L 98 - 107 mmol/L [facility] Work Phone: CO2 [Moles/Vol] 23 mmol/L 20 - 31 mmol/L [facility] Work Phone: Creatinine [Mass/Vol] 0.86 mg/dL 0.70 - 1.20 mg/dL [facility] Work Phone: GFR/1.73 sq M predicted among non-blacks MDRD (S/P/Bld) [Vol rate/Area] [facility] Work Phone: Comment on above: Average GFR for 60-6 9 years old: 85 mL/min/1.73sq m Chronic Kidney Disease: <60 mL/min/1.73sq m Kidney failure: <15 mL/min/1.73sq m eGFR calculated using average adult body mass. Additional eGFR calculator available at: http://www.[employer] [place].[employer]/multiple_crcl_2012.htm GFR/1.73 sq M predicted among non-blacks MDRD (S/P/Bld) [Vol rate/Area] NOT REPORTED [facility] Work Phone: Glucose [Mass/Vol] 135 mg/dL High 70 - 99 mg/dL [facility] Work Phone: Potassium [Moles/Vol] 4.4 mmol/L 3.7 - 5.3 mmol/L [facility] Work Phone: Sodium [Moles/Vol] 140 mmol/L 135 - 144 mmol/L [facility] Work Phone: Urea nitrogen [Mass/Vol] 8 mg/dL 8 - 23 mg/dL [facility] Work Phone: Otheron 12-15-2020 Bun/Cre Ratio NOT REPORTED [facility] Work Phone: GFR >60 >60 mL/min [facility] Work Phone: GFR Non- >60 >60 mL/min [facility] Work Phone: Interpretation and review of laboratory results Abnormal [facility] Work Phone: Microscopic Urinalysison Amorphous, UA NOT REPORTED None [facility], [place] Bacteria, UA FEW Abnormal None [facility], [place] Casts UA NOT REPORTED /LPF [place], [place] Crystals, UA NOT REPORTED None /HPF [facility], [place] Epithelial Cells UA 2 TO 5 /HPF [place], [place] Interpretation and review of laboratory results Abnormal [place], [place] Mucus, UA NOT REPORTED None [place], [place] Other Observations UA NOT REPORTED NOT REQ. [facility], [place] RBC (U) [#/Vol] 0 TO 2 /HPF [facility] [place], [place] Renal Epithelial, UA NOT REPORTED 0 /HPF [place], [place] Trichomonas, UA NOT REPORTED None [facility] [place] WBC, UA 2 TO 5 /HPF [place], [place] Yeast, UA NOT REPORTED None [facility], [place] - [facility], [place] UA w/Reflex Cultureon 2019 Acetoacetic Acid,Ur Negative Normal NEG [facility] Comment on above: Performed By: #### U EUGENIO SHAH #### [facility] [address] [place] [address] Cash Accountant: Erasto Selby DO Bilirubin, SemiQt,Ur Negative Normal NEG [facility] Comment on above: Performed By: #### U EUGENIO SHAH #### [facility] [address] [place] [address] Cash Accountant: Erasto Selby DO Color (U) YELLOW Normal YEL [facility] Comment on above: Performed By: #### U EUGENIO SHAH #### [facility] [address] [place] [phone] Cash Accountant: Erasto Selby DO Glucose Ql (U) Negative Normal NEG [facility] Comment on above: Performed By: #### U EUGENIO SHAH #### [facility] [address] [place] [phone] Cash Accountant: Erasto Selby DO Hemoglobin, Ur Negative Normal NEG [facility] Comment on above: Performed By: #### EUGENIO KNOWLES #### [facility] [address] [place] [phone] Cash Accountant: Erasto Selby DO Leukocyte esterase Test strip Ql (U) TRACE Abnormal NEG [facility] Comment on above: Performed By: #### U EUGENIO SHAH #### [facility] [address] [place] [phone] Cash Accountant: Erasto Selby DO Nitrite,Ur Negative Normal NEG [facility] Comment on above: Performed By: #### U EUGENIO SHAH #### [facility] [address] [place] [address] Cash Accountant: Erasto Selby DO pH (U) 7.5 [pH] Normal 5.0-8.0 [facility] Comment on above: Performed By: #### U EUGENIO SHAH #### [facility] [address] [place] [address] Cash Accountant: Erasto Selby DO Protein Ql (U) Negative Normal NEG [facility] Comment on above: Performed By: #### U EUGENIO SHAH #### [facility] [address] [place] [phone] Cash Accountant: Erasto Selby DO Specific gravity (U) [Rel density] 1.011 Normal 1.000-1.030 [facility] Comment on above: Performed By: #### EUGENIO KNOWLES #### [facility] [address] [place] [phone] Cash Accountant: Erasto Selby DO Turbidity CLEAR Normal CLEAR [facility] Comment on above: Performed By: #### EUGENIO KNOWLES #### [facility] [address] [place] [address] Cash Accountant: Erasto Selby DO Urobilinogen,Ur Normal Normal NORM [facility] Comment on above: Performed By: #### EUGENIO KNOWLES #### [facility] [address] [place] [phone] Cash Accountant: Erasto Selby DO Comment NOT REPORTED Normal [facility] Comment on above: Performed By: #### U EUGENIO SHAH #### [facility] [address] [place] [phone] Cash Accountant: Erasto Selby DO Urinalysis Reflex to Culture on 10-07-2020 Bilirubin Urine Negative NEGATIVE [facility] [place] [place] Color, UA YELLOW YELLOW [facility] [place], [place] Glucose, Ur Negative NEGATIVE [facility] [place] Interpretation and review of laboratory results Abnormal [facility] Ketones Ql (U) Negative NEGATIVE [facility] [place] Leukocyte esterase Test strip Ql (U) TRACE Abnormal NEGATIVE [facility] [place] Nitrite, Urine Negative NEGATIVE [facility] [place], [place] pH, UA 7.5 [facility], [place] Protein (U) [Mass/Vol] Negative NEGATIVE [facility] [place], [place] Specific [place], UA 1.011 [facility], [place] Turbidity UA CLEAR CLEAR [place], [place] Urinalysis Comments NOT REPORTED [facility] [place], [place] Urine Hgb Negative NEGATIVE [facility], [place] Urobilinogen, Urine Normal Normal [place], [place] Urinalysis,Microon 0 ----- Normal [facility] Comment on above: Performed By: #### U AXEUGENIO #### [facility] [address] [place] [phone] Cash Accountant: Erasto Selby DO Bacteria LM.HPF (Urine sed) [#/Area] FEW Abnormal NONE [facility] Comment on above: Performed By: #### U AXEUGENIO #### [facility] [address] [place] [address] Cash Accountant: Erasto Selby DO Epithelial cells LM.HPF (Urine sed) [#/Area] 2 TO 5 Normal [facility] Comment on above: Performed By: #### U AXEUGENIO #### [facility] [address] [place] [phone] Cash Accountant: Erasto Selby DO RBC (U) [#/Vol] 0 TO 2 Normal [facility] Comment on above: Performed By: #### U AXEUGENIO #### [facility] [address] [place] [phone] Cash Accountant: Erasto Selby DO WBC (U) [#/Vol] 2 TO 5 Normal [facility] Comment on above: Performed By: #### U AXEUGENIO #### [facility] [address] [place] [phone] Cash Accountant: Erasto Selby DO Amorphous sediment LM Ql (Urine sed) NOT REPORTED Normal NONE [facility] Comment on above: Performed By: #### EUGENIO KNOWLES #### [facility] [address] [place] [phone] Cash Accountant: Erasto Selby DO Casts LM.LPF (Urine sed) [#/Area] NOT REPORTED Normal [facility] Comment on above: Performed By: #### EUGENIO KNOWLES #### [facility] [address] [place] [phone] Cash Accountant: Erasto Selby DO Crystals LM Nom (Urine sed) NOT REPORTED Normal NONE [facility] Comment on above: Performed By: #### EUGENIO KNOWLES #### [facility] [address] [place] [phone] Cash Accountant: Erasto Selby DO Epithelial, Renal NOT REPORTED Normal 0 [facility] Comment on above: Performed By: #### EUGENIO KNOWLES #### [facility] [address] [place] [phone] Cash Accountant: Erasto Selby DO Mucus Strands NOT REPORTED Normal NONE [facility] Comment on above: Performed By: #### EUGENIO KNOWLES #### [facility] [address] [place] [phone] Cash Accountant: Erasto Selby DO Other Observations NOT REPORTED Normal NREQ [facility] Comment on above: Performed By: #### EUGENIO KNOWLES #### [facility] [address] [place] [phone] Cash Accountant: Erasto Selby DO Trichomonas NOT REPORTED Normal NONE [facility] Comment on above: Performed By: #### EUGENIO KNOWLES #### [facility] [address] [facility] [place] [address] Cash Accountant: Erasto Selby DO Yeast LM Ql (Urine sed) NOT REPORTED Normal NONE [facility] Comment on above: Performed By: #### U AX UMSTEPHANIEO #### [facility] [address] [facility] [place] [address] Cash Accountant: Erasto Selby DO Cult,Urineon 10-03-2020 Cult,Urine Specimen Description .CLEAN CATCH URINE Special Requests ROOM 43A Culture ESCHERICHIA COLI >[id number] CFU/ML Report Status FINAL 10/02/2020 SUSCEPTIBILITY Organism ESCHERICHIA COLI Method ROOPA Amikacin NOT REPORTED Ampicillin >=32 RESISTANT Ampicillin/Sulbactam NOT REPORTED Aztreonam <=1 SUSCEPTIBLE Cefazolin <=4 SUSCEPTIBLE Cefazolin sensitivity results can be used to predict the effectiveness of oral cephalosporins (eg. Cephalexin) in uncomplicated Urinary Tract Infections due to E. coli, K. pneumoniae, and P. mirabilis Cefepime NOT REPORTED Ceftriaxone <=1 SUSCEPTIBLE Ciprofloxacin >=4 RESISTANT Ertapenem NOT REPORTED ESBL NEGATIVE Gentamicin <=1 SUSCEPTIBLE Meropenem NOT REPORTED Nitrofurantoin <=16 SUSCEPTIBLE Tigecycline NOT REPORTED Tobramycin <=1 SUSCEPTIBLE Trimethoprim/Sulfa >=320 RESISTANT Piperacillin/Tazobact am <=4 SUSCEPTIBLE Normal [facility] Comment on above: Performed By: #### U RC #### [facility] [address] [place] [address] Cash Accountant: Aj Ramirez MD [facility] [address] [place] [address] Cash Accountant: Riky Salamanca MD Microscopic Urinalysison Amorphous, UA NOT REPORTED None [facility], [place] Bacteria, UA MANY Abnormal None [facility], [place] Casts UA 0 TO 2 HYALINE Reference range defined for non-centrifuged specimen. [facility], [place] Crystals, UA NOT REPORTED None /HPF [facility] Epithelial Cells UA None [facility], [place] Interpretation and review of laboratory results Abnormal [place] Mucus, UA NOT REPORTED None [place] Other Observations UA NOT REPORTED NOT REQ. [place] RBC (U) [#/Vol] 5 TO 10 [place], [place] Comment on above: Reference range defi ana for non-centrifuged specimen. Renal Epithelial, UA NOT REPORTED 0 /HPF [place] Trichomonas, UA NOT REPORTED None [place], [place] WBC, UA 50 TO 100 [place] Yeast, UA NOT REPORTED None [place] Urinalysison 10-01-2020 Bilirubin Urine Negative NEGATIVE [place], [place] Color, UA YELLOW YELLOW [place] Glucose, Ur Negative NEGATIVE [place] Interpretation and review of laboratory results Abnormal [place] Ketones Ql (U) Negative NEGATIVE [place] Leukocyte esterase Test strip Ql (U) MODERATE Abnormal NEGATIVE [place] Nitrite, Urine Positive Abnormal NEGATIVE [place] pH, UA 6.0 [place] Protein (U) [Mass/Vol] Negative NEGATIVE [place] Specific [place], UA 1.015 [place], [place] Turbidity UA CLOUDY Abnormal CLEAR [place] Urinalysis Comments NOT REPORTED [place] Urine Hgb TRACE Abnormal NEGATIVE [place] Urobilinogen, Urine Normal Normal [place] Urinalysis, Routineon 2019 Acetoacetic Acid,Ur Negative Normal NEG [facility] Comment on above: Performed By: #### U A, UMICAO #### [facility] [address] [place] [address] Cash Accountant: Riky Salamanca MD Bilirubin, SemiQt,Ur Negative Normal NEG [facility] Comment on above: Performed By: #### U A, UMICAO #### [facility] [address] [place] [address] Cash Accountant: Riky Salamanca MD Color (U) YELLOW Normal YEL [facility] Comment on above: Performed By: #### U A, UMICAO #### [address] [address] Cash Accountant: Riky Salamanca MD Glucose Ql (U) Negative Normal NEG [facility] Comment on above: Performed By: #### U A, UMICAO #### [address] [address] Cash Accountant: Riky Salamanca MD Hemoglobin, Ur TRACE Abnormal NEG [facility] Comment on above: Performed By: #### U A, UMICAO #### [address] [phone] Cash Accountant: Riky Salamanca MD Leukocyte esterase Test strip Ql (U) MODERATE Abnormal NEG [facility] Comment on above: Performed By: #### U A, UMICAO #### [address] [address] Cash Accountant: Riky Salamanca MD Nitrite,Ur Positive Abnormal NEG [facility] Comment on above: Performed By: #### U A, UMICAO #### [address] [address] Cash Accountant: Riky Salamanca MD pH (U) 6.0 [pH] Normal 5.0-8.0 [facility] Comment on above: Performed By: #### U A, UMICAO #### [address] [address] Cash Accountant: Riky Salamanca MD Protein Ql (U) Negative Normal NEG [facility] Comment on above: Performed By: #### U A, UMICAO #### [address] [address] Cash Accountant: Riky Salamanca MD Specific gravity (U) [Rel density] 1.015 Normal 1.005-1.030 [facility] Comment on above: Performed By: #### U A, UMICAO #### [address] [address] Cash Accountant: Riky Salamanca MD Turbidity CLOUDY Abnormal CLEAR [facility] Comment on above: Performed By: #### U A, UMICAO #### [address] [address] Cash Accountant: Riky Salamanca MD Urobilinogen,Ur Normal Normal NORM [facility] Comment on above: Performed By: #### U A UMICAO #### [address] [address] Cash Accountant: Riky Salamanca MD Comment NOT REPORTED Normal [facility] Comment on above: Performed By: #### U A UMICAO #### [address] [address] Cash Accountant: Riky Salamanca MD Urinalysis,Microon 0 ----- Normal [facility] Comment on above: Performed By: #### U A, UMICAO #### [address] [address] Cash Accountant: Riky Salamanca MD Bacteria LM.HPF (Urine sed) [#/Area] MANY Abnormal NONE [facility] Comment on above: Performed By: #### U A, UMICAO #### [address] [address] Cash Accountant: Riky Salamanca MD Casts LM.LPF (Urine sed) [#/Area] 0 TO 2 HYALINE Normal 0-8 [facility] Comment on above: Result Comment: Refe rence range defined for non-centrifuged specimen. Performed By: #### U A, UMICAO #### [address] [address] Cash Accountant: Riky Salamanca MD Epithelial cells LM.HPF (Urine sed) [#/Area] None Normal 0-5 [facility] Comment on above: Performed By: #### U A, UMICAO #### [facility] [employer] [facility] [place] [address] Cash Accountant: Riky Salamanca MD RBC (U) [#/Vol] 5 TO 10 Normal 0-4 [facility] Comment on above: Result Comment: Refe rence range defined for non-centrifuged specimen. Performed By: #### U A, UMICAO #### [address] [address] Cash Accountant: Riky Salamanca MD WBC (U) [#/Vol] 50 TO 100 Normal 0-5 [facility] Comment on above: Performed By: #### U A UMICAO #### [address] [address] Cash Accountant: Riky Salamanca MD Amorphous sediment LM Ql (Urine sed) NOT REPORTED Normal NONE [facility] Comment on above: Performed By: #### U A UMICAO #### [address] [address] Cash Accountant: Riky Salamanca MD Crystals LM Nom (Urine sed) NOT REPORTED Normal NONE [facility] Comment on above: Performed By: #### U A, UMICAO #### [facility] [employer] [address] [place] [phone] Cash Accountant: Riky Salamanca MD Epithelial, Renal NOT REPORTED Normal 0 [facility] Comment on above: Performed By: #### U A, UMICAO #### [facility] [employer] [address] [place] [phone] Cash Accountant: Riky Salamanca MD Mucus Strands NOT REPORTED Normal NONE [facility] Comment on above: Performed By: #### U A, UMICAO #### [facility] [address] [place] [address] Cash Accountant: Riky Salamanca MD Other Observations NOT REPORTED Normal NREQ [facility] Comment on above: Performed By: #### U A, UMICAO #### [facility] [address] [place] [address] Cash Accountant: Riky Salamanca MD Trichomonas NOT REPORTED Normal [facility] Comment on above: Performed By: #### U A, UMICAO #### [facility] [address] [place] [address] Cash Accountant: Riky Salamanca MD Yeast LM Ql (Urine sed) NOT REPORTED Normal [facility] Comment on above: Performed By: #### U A, UMICAO #### [facility] [address] [place], [place] [phone] Cash Accountant: Riky Salamanca MD Basic Metabolic Panel 10-2 Anion gap [Moles/Vol] 14 mmol/L 9 - 17 mmol/L [place] Bun/Cre Ratio NOT REPORTED [place], [place] Calcium [Mass/Vol] 9.8 mg/dL 8.6 - 10.4 mg/dL [place] Chloride [Moles/Vol] 99 mmol/L 98 - 107 mmol/L [place] CO2 [Moles/Vol] 24 mmol/L 20 - 31 mmol/L [place] Creatinine [Mass/Vol] 0.98 mg/dL 0.7 - 1.2 mg/dL [place] GFR >60 >60 mL/min [place] GFR Non- >60 >60 mL/min [place] GFR/1.73 sq M predicted among non-blacks MDRD (S/P/Bld) [Vol rate/Area] NOT REPORTED [place] GFR/1.73 sq M predicted among non-blacks MDRD (S/P/Bld) [Vol rate/Area] [place] Comment on above: Average GFR for 60-6 9 years old: 85 mL/min/1.73sq m Chronic Kidney Disease: <60 mL/min/1.73sq m Kidney failure: <15 mL/min/1.73sq m eGFR calculated using average adult body mass. Additional eGFR calculator available at: http://www.Fitsistant/multiple_crcl_2012.htm Glucose [Mass/Vol] 102 mg/dL High 70 - 99 mg/dL [place], [place] Interpretation and review of laboratory results Abnormal [place] Potassium [Moles/Vol] 4.3 mmol/L 3.7 - 5.3 mmol/L [place] Sodium [Moles/Vol] 137 mmol/L 135 - 144 mmol/L [place] Urea nitrogen [Mass/Vol] 11 mg/dL 8 - 23 mg/dL [place] Basic Metabolic Profon 09-09 (cont.) Normal [facility] Comment on above: Result Comment: Aver age GFR for 60-69 years old: 85 mL/min/1.73sq m Chronic Kidney Disease: <60 mL/min/1.73sq m Kidney failure: <15 mL/min/1.73sq m eGFR calculated using average adult body mass. Additional eGFR calculator available at: http://www.Fitsistant/multiple_crcl_2012.htm Performed By: #### EUGENIO Cruz #### [facility] [place] [address] Cash Accountant: Riky Salamanca MD Anion gap [Moles/Vol] 14 mmol/L Normal 9-17 [facility] Comment on above: Performed By: #### EUGENIO Cruz #### [facility] [address] [place] [address] Cash Accountant: Riky Salamanca MD Calcium [Mass/Vol] 9.8 mg/dL Normal 8.6-10.4 [facility] Comment on above: Performed By: #### EUGENIO Cruz #### [facility] [address] [place] [address] Cash Accountant: Riky Salamanca MD Chloride [Moles/Vol] 99 mmol/L Normal 98-107 [facility] Comment on above: Performed By: #### U EUGENIO Ram #### [facility] [address] [place] [phone] Cash Accountant: Riky Salamanca MD CO2 [Moles/Vol] 24 mmol/L Normal 20-31 [facility] Comment on above: Performed By: #### U EUGENIO Ram #### [facility] [address] [place] [address] Cash Accountant: Riky Salamanca MD Creatinine [Mass/Vol] 0.98 mg/dL Normal 0.70-1.20 [facility] Comment on above: Performed By: #### U EUGENIO Ram #### [facility] [address] [place] [phone] Cash Accountant: Riky Salamanca MD GFR, Amer >60 Normal >60 [facility] Comment on above: Performed By: #### EUGENIO Cruz #### [facility] [address] [place] [phone] Cash Accountant: Riky Salamanca MD GFR,non Amer >60 Normal >60 [facility] Comment on above: Performed By: #### U EUGENIO Ram #### [facility] [address] [place] [phone] Cash Accountant: Riky Salamanca MD Glucose [Mass/Vol] 102 mg/dL High 70-99 [facility] Comment on above: Performed By: #### U AEUGENIO #### [facility] [address] [place] [phone] Cash Accountant: Riky Salamanca MD Potassium [Moles/Vol] 4.3 mmol/L Normal 3.7-5.3 [facility] Comment on above: Performed By: #### U A, UMICAO #### [facility] [address] [place] [address] Cash Accountant: Riky Salamanca MD Sodium [Moles/Vol] 137 mmol/L Normal 135-144 [facility] Comment on above: Performed By: #### U A, UMICAO #### [facility] [place] [address] Cash Accountant: Riky Salamanca MD Urea nitrogen [Mass/Vol] 11 mg/dL Normal 8-23 [facility] Comment on above: Performed By: #### U A, UMICAO #### [facility] [place] [address] Cash Accountant: Riky Salamanca MD BUN/CRE Ratio NOT REPORTED Normal 9-20 [facility] Comment on above: Performed By: #### U A, UMICAO #### [facility] [address] [place] [address] Cash Accountant: Riky Salamanca MD Staging: NOT REPORTED Normal [facility] Comment on above: Performed By: #### U A, UMICAO #### [facility] [address] [place] [address] Cash Accountant: Riky Salamanca MD Cult,Urineon 09-04-2020 Cult,Urine Specimen Description .CLEAN CATCH URINE Special Requests NOT REPORTED Culture ESCHERICHIA COLI >[id number] CFU/ML Report Status FINAL 09/04/2020 SUSCEPTIBILITY Organism ESCHERICHIA COLI Method ROOPA Amikacin NOT REPORTED Ampicillin >=32 RESISTANT Ampicillin/Sulbactam NOT REPORTED Aztreonam <=1 SUSCEPTIBLE Cefazolin <=4 SUSCEPTIBLE Cefazolin sensitivity results can be used to predict the effectiveness of oral cephalosporins (eg. Cephalexin) in uncomplicated Urinary Tract Infections due to E. coli, K. pneumoniae, and P. mirabilis Cefepime NOT REPORTED Ceftriaxone <=1 SUSCEPTIBLE Ciprofloxacin >=4 RESISTANT Ertapenem NOT REPORTED ESBL NEGATIVE Gentamicin <=1 SUSCEPTIBLE Meropenem NOT REPORTED Nitrofurantoin <=16 SUSCEPTIBLE Tigecycline NOT REPORTED Tobramycin <=1 SUSCEPTIBLE Trimethoprim/Sulfa >=320 RESISTANT Piperacillin/Tazobact am <=4 SUSCEPTIBLE Normal [facility] Comment on above: Performed By: #### U EUGENIO Ram #### [facility] [employer] [address] [place] [address] Cash Accountant: Riky Salamanca MD Microscopic Urinalysison Amorphous, UA NOT REPORTED None [place] Bacteria, UA MODERATE Abnormal None [place] Casts UA NOT REPORTED /LPF [place] Crystals, UA NOT REPORTED None /HPF [place] Epithelial Cells UA 0 TO 2 [place] Interpretation and review of laboratory results Abnormal [place] Mucus, UA NOT REPORTED None [place] Other Observations UA NOT REPORTED NOT REQ. [place] RBC (U) [#/Vol] 0 TO 2 [place], [place] Renal Epithelial, UA NOT REPORTED 0 /HPF [place] Trichomonas, UA Positive Abnormal None [place], [place] WBC, UA 10 TO 20 [place], [place] Yeast, UA NOT REPORTED None [place] Urinalysison 09-03-2020 Bilirubin Urine Negative NEGATIVE [place], [place] Color, UA YELLOW YELLOW [place], [place] Glucose, Ur Negative NEGATIVE [place] Interpretation and review of laboratory results Abnormal [place], [place] Ketones Ql (U) Negative NEGATIVE [place], [place] Leukocyte esterase Test strip Ql (U) MOD Abnormal NEGATIVE [place], [place] Nitrite, Urine Negative NEGATIVE [place], [place] pH, UA 7.5 [place], [place] Protein (U) [Mass/Vol] Negative NEGATIVE [place] Specific [place], UA 1.010 [place], [place] Turbidity UA SLIGHTLY CLOUDY Abnormal CLEAR [place], [place] Urinalysis Comments NOT REPORTED [place], [place] Urine Hgb TRACE Abnormal NEGATIVE [place] Urobilinogen, Urine Normal Normal [place] Urinalysis, Routineon 2019 Acetoacetic Acid,Ur Negative Normal NEG [facility] Comment on above: Performed By: #### U A, UMICAO #### [facility] [address] [place] [phone] Cash Accountant: Riky Salamanca MD Bilirubin, SemiQt,Ur Negative Normal NEG [facility] Comment on above: Performed By: #### U A, UMICAO #### [facility] [address] [place] [phone] Cash Accountant: Riky Salamanca MD Color (U) YELLOW Normal YEL [facility] Comment on above: Performed By: #### U A, UMICAO #### [facility] [address] [place] [phone] Cash Accountant: Riky Salamanca MD Glucose Ql (U) Negative Normal NEG [facility] Comment on above: Performed By: #### U A, UMICAO #### [address] [address] Cash Accountant: Riky Salamanca MD Hemoglobin, Ur TRACE Abnormal NEG [facility] Comment on above: Performed By: #### U A, UMICAO #### [address] [address] Cash Accountant: Riky Salamanca MD Leukocyte esterase Test strip Ql (U) MOD Abnormal NEG [facility] Comment on above: Performed By: #### U A, UMICAO #### [address] [address] Cash Accountant: Riky Salamanca MD Nitrite,Ur Negative Normal [facility] Comment on above: Performed By: #### U A, UMICAO #### [facility] [address] [place] [phone] Cash Accountant: Riky Salamanca MD pH (U) 7.5 [pH] Normal 5.0-8.0 [facility] Comment on above: Performed By: #### U AAMORO #### [address] [address] Cash Accountant: Riky Salamanca MD Protein Ql (U) Negative Normal NEG [facility] Comment on above: Performed By: #### U ADIVYAICAO #### [address] [address] Cash Accountant: Riky Salamanca MD Specific gravity (U) [Rel density] 1.010 Normal 1.005-1.030 [facility] Comment on above: Performed By: #### U AAMORO #### [address] [address] Cash Accountant: Riky Salamanca MD Turbidity SLIGHTLY CLOUDY Abnormal CLEAR [facility] Comment on above: Performed By: #### U A UMSTEPHANIEO #### [address] [address] Cash Accountant: Riky Salamanca MD Urobilinogen,Ur Normal Normal NORM [facility] Comment on above: Performed By: #### U A, UMICAO #### [address] [address] Cash Accountant: Riky Salamanca MD Urinalysis,Microon 0 ----- Normal [facility] Comment on above: Performed By: #### U A, UMICAO #### [address] [address] Cash Accountant: Riky Salamanca MD Bacteria LM.HPF (Urine sed) [#/Area] MODERATE Abnormal NONE [facility] Comment on above: Performed By: #### U ADIVYAICAO #### [address] [address] Cash Accountant: Riky Salamanca MD Epithelial cells LM.HPF (Urine sed) [#/Area] 0 TO 2 Normal 0-5 [facility] Comment on above: Performed By: #### U A, UMICAO #### [facility] [address] [place] [address] Cash Accountant: Riky Salamanca MD RBC (U) [#/Vol] 0 TO 2 Normal 0-2 [facility] Comment on above: Performed By: #### U A, UMICAO #### [facility] [address] [place] [phone] Cash Accountant: Riky Salamanca MD Trichomonas Positive Abnormal NONE [facility] Comment on above: Performed By: #### U A, UMICAO #### [facility] [address] [place] [phone] Cash Accountant: Riky Salamanca MD WBC (U) [#/Vol] 10 TO 20 Normal 0-5 [facility] Comment on above: Performed By: #### U A, UMICAO #### [facility] [address] [place] [address] Cash Accountant: Riky Salamanca MD Cult,Urineon 09-02-2020 Cult,Urine Specimen Description .URINE Special Requests [id number] Culture Several types of bacteria were identified in this specimen. Further ID and susceptibility testing is generally not helpful in this circumstance and has not been performed. Consider recollection if clinically indicated. Please contact the Micro lab ([phone]) if you feel the management ofthis particular situation would be helped by further testing. Report Status FINAL 09/02/2020 Normal [facility] Comment on above: Performed By: #### U A, UMICAO #### [facility] [address] [place] [phone] Cash Accountant: Riky Salamanca MD Urinalysis, Routineon 2019 Comment NOT REPORTED Normal [facility] Comment on above: Performed By: #### U A, UMICAO #### [facility] [address] [place] [address] Cash Accountant: Riky Salamanca MD Urinalysis,Microon 0 Amorphous sediment LM Ql (Urine sed) NOT REPORTED Normal [facility] Comment on above: Performed By: #### U A, UMICAO #### [facility] [address] [place] [phone] Cash Accountant: Riky Salamanca MD Casts LM.LPF (Urine sed) [#/Area] NOT REPORTED Normal [facility] Comment on above: Performed By: #### U A, UMICAO #### [facility] [facility] [address] [place] [phone] Cash Accountant: Riky Salamanca MD Crystals LM Nom (Urine sed) NOT REPORTED Normal [facility] Comment on above: Performed By: #### U A, UMICAO #### [address] [address] Cash Accountant: Riky Salamanca MD Epithelial, Renal NOT REPORTED Normal 0 [facility] Comment on above: Performed By: #### U A, UMICAO #### [facility] [address] [place] [phone] Cash Accountant: Riky Salamanca MD Mucus Strands NOT REPORTED Normal [facility] Comment on above: Performed By: #### U A, UMICAO #### [facility] [address] [place] [phone] Cash Accountant: Riky Salamanca MD Other Observations NOT REPORTED Normal NREQ [facility] Comment on above: Performed By: #### U A, UMICAO #### [facility] [address] [place] [phone] Cash Accountant: Riky Salamanca MD Yeast LM Ql (Urine sed) NOT REPORTED Normal NONE [facility] Comment on above: Performed By: #### U A, UMICAO #### [address] [address] Cash Accountant: Riky Salamanca MD Urinalysis,Microon 0 ----- Normal [facility] Comment on above: Performed By: #### U A, UMICAO #### [address] [address] Cash Accountant: Riky Salamanca MD Bacteria LM.HPF (Urine sed) [#/Area] MANY Abnormal NONE [facility] Comment on above: Performed By: #### U A, UMICAO #### [address] [address] Cash Accountant: Riky Salamanca MD Casts LM.LPF (Urine sed) [#/Area] 0 TO 2 HYALINE Normal 0-8 [facility] Comment on above: Result Comment: Refe rence range defined for non-centrifuged specimen. Performed By: #### U A, UMICAO #### [address] [address] Cash Accountant: Riky Salamanca MD Epithelial cells LM.HPF (Urine sed) [#/Area] 0 TO 2 Normal 0-5 [facility] Comment on above: Performed By: #### U A, UMICAO #### [address] [address] Cash Accountant: Riky Salamanca MD RBC (U) [#/Vol] 5 TO 10 Normal 0-4 [facility] Comment on above: Result Comment: Refe rence range defined for non-centrifuged specimen. Performed By: #### U A, UMICAO #### [address] [address] Cash Accountant: Riky Salamanca MD WBC (U) [#/Vol] TOO NUMEROUS TO COUNT Normal 0-5 [facility] Comment on above: Performed By: #### U A, EUGENIO #### [facility] [address] [place] [address] Cash Accountant: Riky Salamanca MD Microscopic Urinalysison Amorphous, UA NOT REPORTED None [facility], [place] Bacteria, UA MANY Abnormal None [place] Casts UA 0 TO 2 HYALINE Reference range defined for non-centrifuged specimen. [place] Crystals, UA NOT REPORTED None /HPF [place] Epithelial Cells UA 0 TO 2 [place] Interpretation and review of laboratory results Abnormal [place] Mucus, UA NOT REPORTED None [place] Other Observations UA NOT REPORTED NOT REQ. [place] RBC (U) [#/Vol] 5 TO 10 [place], [place] Comment on above: Reference range defi ana for non-centrifuged specimen. Renal Epithelial, UA NOT REPORTED 0 /HPF [place] Trichomonas, UA NOT REPORTED None [place] WBC, UA TOO NUMEROUS TO COUNT [place] Yeast, UA NOT REPORTED None [place] Urinalysison 08-31-2020 Bilirubin Urine Negative NEGATIVE [place] Color, UA YELLOW YELLOW [place] Glucose, Ur Negative NEGATIVE [place] Interpretation and review of laboratory results Abnormal [place] Ketones Ql (U) TRACE Abnormal NEGATIVE [place] Leukocyte esterase Test strip Ql (U) LARGE Abnormal NEGATIVE [place] Nitrite, Urine Negative NEGATIVE [place] pH, UA 5.5 [place] Protein (U) [Mass/Vol] TRACE Abnormal NEGATIVE [place] Specific [place], UA 1.023 [place] Turbidity UA CLOUDY Abnormal CLEAR [place] Urinalysis Comments NOT REPORTED [place] Urine Hgb MODERATE Abnormal NEGATIVE [place] Urobilinogen, Urine Normal Normal [facility] [place], [place] Urinalysis, Routineon 2019 Acetoacetic Acid,Ur TRACE Abnormal NEG [facility] Comment on above: Performed By: #### U A, UMICAO #### [facility] [address] [place] [address] Cash Accountant: Riky Salamanca MD Bilirubin, SemiQt,Ur Negative Normal NEG [facility] Comment on above: Performed By: #### U A, UMICAO #### [facility] [address] [place] [phone] Cash Accountant: Riky Salamanca MD Color (U) YELLOW Normal YEL [facility] Comment on above: Performed By: #### U A, UMICAO #### [facility] [address] [place] [phone] Cash Accountant: Riky Salamanca MD Glucose Ql (U) Negative Normal NEG [facility] Comment on above: Performed By: #### U A, UMICAO #### [facility] [address] [place] [phone] Cash Accountant: Riky Salamanca MD Hemoglobin, Ur MODERATE Abnormal NEG [facility] Comment on above: Performed By: #### U A, UMICAO #### [facility] [employer] [address] [place] [address] Cash Accountant: Riky Salamanca MD Leukocyte esterase Test strip Ql (U) LARGE Abnormal NEG [facility] Comment on above: Performed By: #### U A, UMICAO #### [facility] [employer] [address] [place] [address] Cash Accountant: Riky Salamanca MD Nitrite,Ur Negative Normal [facility] Comment on above: Performed By: #### U A, UMICAO #### [facility] [address] [place] [phone] Cash Accountant: Riky Salamanca MD pH (U) 5.5 [pH] Normal 5.0-8.0 [facility] Comment on above: Performed By: #### U A UMICAO #### [facility] [address] [place] [phone] Cash Accountant: Riky Salamanca MD Protein Ql (U) TRACE Abnormal NEG [facility] Comment on above: Performed By: #### U A, UMICAO #### [facility] [address] [place] [phone] Cash Accountant: Riky Salamanca MD Specific gravity (U) [Rel density] 1.023 Normal 1.005-1.030 [facility] Comment on above: Performed By: #### U A, UMICAO #### [facility] [employer] [address] [place] [phone] Cash Accountant: Riky Salamanca MD Turbidity CLOUDY Abnormal CLEAR [facility] Comment on above: Performed By: #### U A, UMICAO #### [facility] [address] [place] [phone] Cash Accountant: Riky Salamanca MD Urobilinogen,Ur Normal Normal NORM [facility] Comment on above: Performed By: #### U A, UMICAO #### [facility] [address] [place] [address] [phone] Cash Accountant: Riky Salamanca MD Comment NOT REPORTED Normal [facility] Comment on above: Performed By: #### U A, UMICAO #### [facility] [address] [place] [phone] Cash Accountant: Riky Salamanca MD Urinalysis,Microon 0 Amorphous sediment LM Ql (Urine sed) NOT REPORTED Normal NONE [facility] Comment on above: Performed By: #### U A, UMICAO #### [facility] [address] [place] [phone] Cash Accountant: Riky Salamanca MD Crystals LM Nom (Urine sed) NOT REPORTED Normal NONE [facility] Comment on above: Performed By: #### U A UMICAO #### [address] [phone] Cash Accountant: Riky Salamanca MD Epithelial, Renal NOT REPORTED Normal 0 [facility] Comment on above: Performed By: #### U A UMICAO #### [address] [phone] Cash Accountant: Riky Salamanca MD Mucus Strands NOT REPORTED Normal [facility] Comment on above: Performed By: #### U A UMICAO #### [address] [address] Cash Accountant: Riky Salamanca MD Other Observations NOT REPORTED Normal NREQ [facility] Comment on above: Performed By: #### U A UMICAO #### [address] [address] Cash Accountant: Riky Salamanca MD Trichomonas NOT REPORTED Normal NONE [facility] Comment on above: Performed By: #### U A UMICAO #### [address] [address] Cash Accountant: Riky Salamanca MD Yeast LM Ql (Urine sed) NOT REPORTED Normal [facility] Comment on above: Performed By: #### U A UMICAO #### [address] [address] Cash Accountant: Riky Salamanca MD Cult,Urineon 07-29-2020 Cult,Urine Specimen Description .CLEAN CATCH URINE Special Requests NOT REPORTED Culture NO SIGNIFICANT GROWTH Report Status FINAL 07/29/2020 Normal [facility] Comment on above: Performed By: #### U RC #### [facility] [address], [place] [phone] Cash Accountant: Aj Ramirez MD [facility] [employer] [facility] [place], [place] [phone] Cash Accountant: Riky Salamanca MD Cult,Urine Specimen Description .CLEAN CATCH URINE Special Requests NOT REPORTED Culture DUPLICATE ORDER Report Status FINAL 07/29/2020 Normal [facility] Comment on above: Performed By: #### U RC #### [facility] [address] [place], [place] [phone] Cash Accountant: Aj Ramirez MD [facility] [employer] [address] [place] [address] [phone] Cash Accountant: Riky Salamanca MD Microscopic Urinalysison Amorphous, UA NOT REPORTED None [facility] [place] Bacteria, UA NOT REPORTED None [facility], [place] Casts UA NOT REPORTED /LPF [facility], [place] Crystals, UA NOT REPORTED None /HPF [facility] [place] Epithelial Cells UA 2 TO 5 [facility], [place] Mucus, UA NOT REPORTED None [facility], [place] Other Observations UA NOT REPORTED NOT REQ. [facility], [place] RBC (U) [#/Vol] 0 TO 2 [facility] [place], [place] Renal Epithelial, UA NOT REPORTED 0 /HPF [facility], [place] Trichomonas, UA NOT REPORTED None [facility]- [place], [place] WBC, UA 2 TO 5 [facility] [place] Yeast, UA NOT REPORTED None [facility], [place] - [facility] [place] Urinalysison 07-28-2020 Bilirubin Urine Negative NEGATIVE [facility] [place] Color, UA YELLOW YELLOW [facility], [place] Glucose, Ur Negative NEGATIVE [facility] [place] Interpretation and review of laboratory results Abnormal [facility] [place] Ketones Ql (U) Negative NEGATIVE [facility] [place] Leukocyte esterase Test strip Ql (U) TRACE Abnormal NEGATIVE [facility], [place] Nitrite, Urine Negative NEGATIVE [facility] [place] pH, UA 6.0 [facility], [place] Protein (U) [Mass/Vol] Negative NEGATIVE [facility], [place] Specific [place], UA 1.005 [place] Turbidity UA CLEAR CLEAR [place] Urinalysis Comments NOT REPORTED [facility], [place] Urine Hgb Negative NEGATIVE [place] Urobilinogen, Urine Normal Normal [place] Urinalysis, Routineon 2019 Acetoacetic Acid,Ur Negative Normal NEG [facility] Comment on above: Performed By: #### U RC #### [facility] [address] [place] [address] [phone] Cash Accountant: Aj Ramirez MD [address] [phone] Cash Accountant: Riky Salamanca MD Bilirubin, SemiQt,Ur Negative Normal NEG [facility] Comment on above: Performed By: #### U RC #### [facility] [address] [place] [address] [phone] Cash Accountant: Aj Ramirez MD [address] [address] Cash Accountant: Riky Salamanca MD Color (U) YELLOW Normal L [facility] Comment on above: Performed By: #### U RC #### [facility] [address] [place] [phone] Cash Accountant: Aj Ramirez MD [facility] [employer] [address] [place] [phone] Cash Accountant: Riky Salamanca MD Glucose Ql (U) Negative Normal [facility] Comment on above: Performed By: #### U RC #### [facility] [address] [place] [address] [phone] Cash Accountant: Aj Ramirez MD [facility] [employer] [address] [place] [address] Cash Accountant: Riky Salamanca MD Hemoglobin, Ur Negative Normal NEG [facility] Comment on above: Performed By: #### U RC #### [facility] [address] [place] [address] Cash Accountant: Aj Ramirez MD [address] [address] Cash Accountant: Riky Salamanca MD Leukocyte esterase Test strip Ql (U) TRACE Abnormal NEG [facility] Comment on above: Performed By: #### U RC #### [facility] [address] [place] [phone] Cash Accountant: Aj Ramirez MD [address] [address] Cash Accountant: Riky Salamanca MD Nitrite,Ur Negative Normal NEG [facility] Comment on above: Performed By: #### U RC #### [facility] [address] [place] [address] [phone] Cash Accountant: Aj Ramirez MD [address] [address] Cash Accountant: Riky Salamanca MD pH (U) 6.0 [pH] Normal 5.0-8.0 [facility] Comment on above: Performed By: #### U RC #### [facility] [address] [place] [address] 12021 Cash Accountant: Aj Ramirez MD [facility] [employer] [address] [place] [address] [phone] Cash Accountant: Riky Salamanca MD Protein Ql (U) Negative Normal NEG [facility] Comment on above: Performed By: #### U RC #### [facility] [address] [place] [address] [phone] Cash Accountant: Aj Ramirez MD [facility] [employer] [address] [place] [address] [phone] Cash Accountant: Riky Salamanca MD Specific gravity (U) [Rel density] 1.005 Normal 1.005-1.030 [facility] Comment on above: Performed By: #### U RC #### [facility] [address] [place] [address] Cash Accountant: Aj Ramirez MD [address] [address] Cash Accountant: Riky Salamanca MD Turbidity CLEAR Normal CLEAR [facility] Comment on above: Performed By: #### U RC #### [facility] [address] [place] [phone] Cash Accountant: Aj Ramirez MD [address] [address] Cash Accountant: Riky Salamanca MD Urobilinogen,Ur Normal Normal NORM [facility] Comment on above: Performed By: #### U RC #### [facility] [address] [place] [phone] Cash Accountant: Aj Ramirez MD [address] [address] Cash Accountant: Riky Salamanca MD Comment NOT REPORTED Normal [facility] Comment on above: Performed By: #### U RC #### [facility] [address] [place] [address] 24817 Cash Accountant: Aj Ramirez MD [address] [address] Cash Accountant: Riky Salamanca MD Urinalysis,Microon 0 ----- Normal [facility] Comment on above: Performed By: #### U RC #### [facility] [address] [place] [address] [phone] Cash Accountant: Aj Ramirez MD [address] [phone] Cash Accountant: Riky Salamanca MD Epithelial cells LM.HPF (Urine sed) [#/Area] 2 TO 5 Normal 0-5 [facility] Comment on above: Performed By: #### U RC #### [facility] [address] [place] [address] [phone] Cash Accountant: Aj Ramirez MD [address] [address] Cash Accountant: Riky Salamanca MD RBC (U) [#/Vol] 0 TO 2 Normal 0-2 [facility] Comment on above: Performed By: #### U RC #### [facility] [address] [place] [address] [phone] Cash Accountant: Aj Ramirez MD [address] [address] Cash Accountant: Riky Salamanca MD WBC (U) [#/Vol] 2 TO 5 Normal 0-5 [facility] Comment on above: Performed By: #### U RC #### [facility] [address] [place] [address] 59915 Cash Accountant: Aj Ramirez MD [address] [address] Cash Accountant: Riky Salamanca MD Amorphous sediment LM Ql (Urine sed) NOT REPORTED Normal NONE [facility] Comment on above: Performed By: #### U RC #### [facility] [address] [place] [address]19 Cash Accountant: Aj Ramirez MD [address] [address] Cash Accountant: Riky Salamanca MD Bacteria LM.HPF (Urine sed) [#/Area] NOT REPORTED Normal NONE [facility] Comment on above: Performed By: #### U RC #### [facility] [address] [place] [address] Cash Accountant: Aj Ramirez MD [address] [address] Cash Accountant: Riky Salamanca MD Casts LM.LPF (Urine sed) [#/Area] NOT REPORTED Normal [facility] Comment on above: Performed By: #### U RC #### [facility] [address] [place] [address] 23968 Cash Accountant: Aj Ramirez MD [address] [phone] Cash Accountant: Riky Salamanca MD Crystals LM Nom (Urine sed) NOT REPORTED Normal NONE [facility] Comment on above: Performed By: #### U RC #### [facility] [address] [place] [address] [phone] Cash Accountant: Aj Ramirez MD [address] [address] Cash Accountant: Riky Salamanca MD Epithelial, Renal NOT REPORTED Normal 0 [facility] Comment on above: Performed By: #### U RC #### [facility] [address] [place] [address] [phone] Cash Accountant: Aj Ramirez MD [address] [address] Cash Accountant: Riky Salamanca MD Mucus Strands NOT REPORTED Normal NONE [facility] Comment on above: Performed By: #### U RC #### [facility] [address] [place] [phone] Cash Accountant: Aj Ramirez MD [address] [address] Cash Accountant: Riky Salamanca MD Other Observations NOT REPORTED Normal NREQ [facility] Comment on above: Performed By: #### U RC #### [facility] [address] [place] [address] Cash Accountant: Aj Ramirez MD [address] [address] Cash Accountant: Riky Salamanca MD Trichomonas NOT REPORTED Normal NONE [facility] Comment on above: Performed By: #### U RC #### [facility] [place] [address] Cash Accountant: Aj Ramirez MD [address] [phone] Cash Accountant: Riky Salamanca MD Yeast LM Ql (Urine sed) NOT REPORTED Normal [facility] Comment on above: Performed By: #### U RC #### [facility] [address] [place] [address] 11634 Cash Accountant: Aj Ramirez MD [address] [address] Cash Accountant: Riky Salamanca MD Cult,Urineon 07-16-2020 Cult,Urine Specimen Description .URINE Special Requests ROOM 42A Culture ESCHERICHIA COLI >[id number] CFU/ML MORGANELLA MORGANII >[id number] CFU/ML Report Status FINAL 07/16/2020 SUSCEPTIBILITY Organism ESCHERICHIA COLI Method ROOPA Amikacin NOT REPORTED Ampicillin 4 SUSCEPTIBLE Ampicillin/Sulbactam NOT REPORTED Aztreonam <=1 SUSCEPTIBLE Cefazolin <=4 SUSCEPTIBLE Cefazolin sensitivity results can be used to predict the effectiveness of oral cephalosporins (eg. Cephalexin) in uncomplicated Urinary Tract Infections due to E. coli, K. pneumoniae, and P. mirabilis Cefepime NOT REPORTED Ceftriaxone <=1 SUSCEPTIBLE Ciprofloxacin >=4 RESISTANT Ertapenem NOT REPORTED ESBL NEGATIVE Gentamicin <=1 SUSCEPTIBLE Meropenem NOT REPORTED Nitrofurantoin 32 SUSCEPTIBLE Tigecycline NOT REPORTED Tobramycin <=1 SUSCEPTIBLE Trimethoprim/Sulfa >=320 RESISTANT Piperacillin/Tazobact am <=4 SUSCEPTIBLE SUSCEPTIBILITY Organism MORGANELLA MORGANII Method ROOPA Amikacin NOT REPORTED Ampicillin >=32 RESISTANT Ampicillin/Sulbactam NOT REPORTED Aztreonam <=1 SUSCEPTIBLE Cefazolin NOT REPORTED Cefepime NOT REPORTED Ceftriaxone <=1 SUSCEPTIBLE Ciprofloxacin 2 INTERMEDIATE Ertapenem NOT REPORTED Gentamicin <=1 SUSCEPTIBLE Meropenem NOT REPORTED Nitrofurantoin 128 RESISTANT Tigecycline NOT REPORTED Tobramycin <=1 SUSCEPTIBLE Trimethoprim/Sulfa <=20 SUSCEPTIBLE Piperacillin/Tazobact am <=4 SUSCEPTIBLE Normal [facility] Comment on above: Performed By: #### U RC #### [facility] [address], [place] [phone] Cash Accountant: Aj Ramirez MD [facility] [employer] [address] [place], [place] [phone] Cash Accountant: Riky Salamanca MD Microscopic Urinalysison Amorphous, UA NOT REPORTED None [place] Bacteria, UA MANY Abnormal None [place] Casts UA 10 TO 20 HYALINE Reference range defined for non-centrifuged specimen. [place] Crystals, UA NOT REPORTED None /HPF [place] Epithelial Cells UA None [place] Interpretation and review of laboratory results Abnormal [place] Mucus, UA NOT REPORTED None [place] Other Observations UA NOT REPORTED NOT REQ. [place] RBC (U) [#/Vol] 2 TO 5 [place] Comment on above: Reference range defi ana for non-centrifuged specimen. Renal Epithelial, UA NOT REPORTED 0 /HPF [place] Trichomonas, UA NOT REPORTED None [place], [place] WBC, UA 50 TO 100 [place] Yeast, UA NOT REPORTED None [place] Urinalysison 07-12-2020 Bilirubin Urine Negative NEGATIVE [place] Color, UA YELLOW YELLOW [place] Glucose, Ur Negative NEGATIVE [place] Interpretation and review of laboratory results Abnormal [place] Ketones Ql (U) Negative NEGATIVE [place] Leukocyte esterase Test strip Ql (U) LARGE Abnormal NEGATIVE [place] Nitrite, Urine Positive Abnormal NEGATIVE [place] pH, UA 8.0 [place] Protein (U) [Mass/Vol] Negative NEGATIVE [place] Specific [place], UA 1.015 [place] Turbidity UA CLOUDY Abnormal CLEAR [place] Urinalysis Comments NOT REPORTED [place] Urine Hgb Negative NEGATIVE [place] Urobilinogen, Urine Normal Normal [place] Urinalysis, Routineon 2019 Acetoacetic Acid,Ur Negative Normal NEG [facility] Comment on above: Performed By: #### U ADIVYAICAO #### [address] [address] Cash Accountant: Riky Salamanca MD Bilirubin, SemiQt,Ur Negative Normal NEG [facility] Comment on above: Performed By: #### U A UMICAO #### [address] [address] Cash Accountant: Riky Salamanca MD Color (U) YELLOW Normal YEL [facility] Comment on above: Performed By: #### U A UMICAO #### [address] [address] Cash Accountant: Riky Salamanca MD Glucose Ql (U) Negative Normal NEG [facility] Comment on above: Performed By: #### U A UMICAO #### [address] [address] Cash Accountant: Riky Salamanca MD Hemoglobin, Ur Negative Normal NEG [facility] Comment on above: Performed By: #### U A UMICAO #### [address] [address] Cash Accountant: Riky Salamanca MD Leukocyte esterase Test strip Ql (U) LARGE Abnormal NEG [facility] Comment on above: Performed By: #### U AEUGENIO #### [address] [address] Cash Accountant: Riky Salamanca MD Nitrite,Ur Positive Abnormal NEG [facility] Comment on above: Performed By: #### U AEUGENIO #### [address] [address] Cash Accountant: Riky Salamanca MD pH (U) 8.0 [pH] Normal 5.0-8.0 [facility] Comment on above: Performed By: #### U EUGENIO Ram #### [address] [address] Cash Accountant: Riky Salamanca MD Protein Ql (U) Negative Normal NEG [facility] Comment on above: Performed By: #### U AEUGENIO #### [address] [address] Cash Accountant: Riky Salamanca MD Specific gravity (U) [Rel density] 1.015 Normal 1.005-1.030 [facility] Comment on above: Performed By: #### U EUGENIO Ram #### [address] [address] Cash Accountant: Riky Salamanca MD Turbidity CLOUDY Abnormal CLEAR [facility] Comment on above: Performed By: #### U AEUGENIO #### [address] [address] Cash Accountant: Riky Salamanca MD Urobilinogen,Ur Normal Normal NORM [facility] Comment on above: Performed By: #### U AEUGENIO #### [address] [place] [address] Cash Accountant: Riky Salamanca MD Comment NOT REPORTED Normal [facility] Comment on above: Performed By: #### U A, UMICAO #### [address] [address] Cash Accountant: Riky Salamanca MD Urinalysis,Microon 0 ----- Normal [facility] Comment on above: Performed By: #### U A, UMICAO #### [facility] [address] [place] [phone] Cash Accountant: Riky Salamanca MD Bacteria LM.HPF (Urine sed) [#/Area] MANY Abnormal NONE [facility] Comment on above: Performed By: #### U A, UMICAO #### [address] [address] Cash Accountant: Riky Salamanca MD Casts LM.LPF (Urine sed) [#/Area] 10 TO 20 HYALINE Normal 0-8 [facility] Comment on above: Result Comment: Refe rence range defined for non-centrifuged specimen. Performed By: #### U A, UMICAO #### [address] [address] Cash Accountant: Riky Salamanca MD Epithelial cells LM.HPF (Urine sed) [#/Area] None Normal 0-5 [facility] Comment on above: Performed By: #### U A, UMICAO #### [facility] [address] [place] [phone] Cash Accountant: Riky Salamanca MD RBC (U) [#/Vol] 2 TO 5 Normal 0-4 [facility] Comment on above: Result Comment: Refe rence range defined for non-centrifuged specimen. Performed By: #### U A, UMICAO #### [address] [address] Cash Accountant: Riky Salamanca MD WBC (U) [#/Vol] 50 TO 100 Normal 0-5 [facility] Comment on above: Performed By: #### U A, UMICAO #### [facility] [address] [place] [phone] Cash Accountant: Riky Salamanca MD Amorphous sediment LM Ql (Urine sed) NOT REPORTED Normal [facility] Comment on above: Performed By: #### U A, UMICAO #### [facility] [address] [place] [phone] Cash Accountant: Riky Salamanca MD Crystals LM Nom (Urine sed) NOT REPORTED Normal [facility] Comment on above: Performed By: #### U A, UMICAO #### [facility] [address] [place] [phone] Cash Accountant: Riky Salamanca MD Epithelial, Renal NOT REPORTED Normal 0 [facility] Comment on above: Performed By: #### U A, UMICAO #### [facility] [address] [place] [phone] Cash Accountant: Riky Salamanca MD Mucus Strands NOT REPORTED Normal [facility] Comment on above: Performed By: #### U A, UMICAO #### [facility] [address] [place] [phone] Cash Accountant: Riky Salamanca MD Other Observations NOT REPORTED Normal NREQ [facility] Comment on above: Performed By: #### U A, UMICAO #### [facility] [address] [place] [phone] Cash Accountant: Riky Salamanca MD Trichomonas NOT REPORTED Normal [facility] Comment on above: Performed By: #### U A, UMICAO #### [facility] [address] [place] [phone] Cash Accountant: Riky Salamanca MD Yeast LM Ql (Urine sed) NOT REPORTED Normal NONE [facility] Comment on above: Performed By: #### U A, UMICAO #### [id number] [place], [place] [phone] Cash Accountant: Riky Salamanca MD Cult,Urineon 05-14-2020 Cult,Urine Specimen Description .CLEAN CATCH URINE Special Requests [id number] Culture ESCHERICHIA COLI >[id number] CFU/ML Report Status FINAL 05/14/2020 SUSCEPTIBILITY Organism ESCHERICHIA COLI Method ROOPA Amikacin NOT REPORTED Ampicillin <=2 SUSCEPTIBLE Ampicillin/Sulbactam NOT REPORTED Aztreonam <=1 SUSCEPTIBLE Cefazolin <=4 SUSCEPTIBLE Cefazolin sensitivity results can be used to predict the effectiveness of oral cephalosporins (eg. Cephalexin) in uncomplicated Urinary Tract Infections due to E. coli, K. pneumoniae, and P. mirabilis Cefepime NOT REPORTED Ceftriaxone <=1 SUSCEPTIBLE Ciprofloxacin >=4 RESISTANT Ertapenem NOT REPORTED ESBL NEGATIVE Gentamicin <=1 SUSCEPTIBLE Meropenem NOT REPORTED Nitrofurantoin <=16 SUSCEPTIBLE Tigecycline NOT REPORTED Tobramycin <=1 SUSCEPTIBLE Trimethoprim/Sulfa >=320 RESISTANT Piperacillin/Tazobact am <=4 SUSCEPTIBLE Normal [facility] Comment on above: Performed By: #### U RC #### [facility] [address] [place], [place] [phone] Cash Accountant: Aj Ramirez MD [facility] [employer] [address] [place] [address] [phone] Cash Accountant: Riky Salamanca MD Microscopic Urinalysison Amorphous, UA NOT REPORTED None [facility]- [place], [place] Bacteria, UA MODERATE Abnormal None [facility], [place] Casts UA 0 TO 2 HYALINE Reference range defined for non-centrifuged specimen. [facility] [place], [place] Crystals, UA NOT REPORTED None /HPF [facility]- [place], [place] Epithelial Cells UA None [facility], [place] Interpretation and review of laboratory results Abnormal [facility], [place] Mucus, UA NOT REPORTED None [facility], [place] Other Observations UA NOT REPORTED NOT REQ. [facility], [place] RBC (U) [#/Vol] 2 TO 5 [place], [place] Comment on above: Reference range defi ana for non-centrifuged specimen. Renal Epithelial, UA NOT REPORTED 0 /HPF [place] Trichomonas, UA NOT REPORTED None [place] WBC, UA 20 TO 50 [place] Yeast, UA NOT REPORTED None [place] Urinalysison 05-12-2020 Bilirubin Urine Negative NEGATIVE [place], [place] Color, UA YELLOW YELLOW [place] Glucose, Ur Negative NEGATIVE [place] Interpretation and review of laboratory results Abnormal [place] Ketones Ql (U) Negative NEGATIVE [place] Leukocyte esterase Test strip Ql (U) LARGE Abnormal NEGATIVE [place] Nitrite, Urine Positive Abnormal NEGATIVE [place] pH, UA 6.5 [place] Protein (U) [Mass/Vol] Negative NEGATIVE [place] Specific [place], UA 1.010 [place] Turbidity UA CLEAR CLEAR [place] Urinalysis Comments NOT REPORTED [place] Urine Hgb Negative NEGATIVE [place] Urobilinogen, Urine Normal Normal [place] Urinalysis, Routineon 2019 Acetoacetic Acid,Ur Negative Normal NEG [facility] Comment on above: Performed By: #### U A UMICAO #### [facility] [employer] [address] [place] [address] [phone] Cash Accountant: Riky Salamanca MD Bilirubin, SemiQt,Ur Negative Normal NEG [facility] Comment on above: Performed By: #### U A UMICAO #### [facility] [address] [place] [address] [phone] Cash Accountant: Riky Salamanca MD Color (U) YELLOW Normal [facility] Comment on above: Performed By: #### U A UMICAO #### [facility] [address] [place] [phone] Cash Accountant: Riky Salamanca MD Glucose Ql (U) Negative Normal NEG [facility] Comment on above: Performed By: #### U A, UMICAO #### [facility] [address] [place] [address] [phone] Cash Accountant: Riky Salamanca MD Hemoglobin, Ur Negative Normal NEG [facility] Comment on above: Performed By: #### U A, UMICAO #### [facility] [address] [place] [address] [phone] Cash Accountant: Riky Salamanca MD Leukocyte esterase Test strip Ql (U) LARGE Abnormal NEG [facility] Comment on above: Performed By: #### U A, UMICAO #### [facility] [address] [place] [phone] Cash Accountant: Riky Salamanca MD Nitrite,Ur Positive Abnormal NEG [facility] Comment on above: Performed By: #### U A, UMICAO #### [address] [phone] Cash Accountant: Riky Salamanca MD pH (U) 6.5 [pH] Normal 5.0-8.0 [facility] Comment on above: Performed By: #### U A, UMICAO #### [address] [phone] Cash Accountant: Riky Salamanca MD Protein Ql (U) Negative Normal NEG [facility] Comment on above: Performed By: #### U A, UMICAO #### [facility] [address] [place] [phone] Cash Accountant: Riky Salamanca MD Specific gravity (U) [Rel density] 1.010 Normal 1.005-1.030 [facility] Comment on above: Performed By: #### U A, UMICAO #### [facility] [address] [place] [phone] Cash Accountant: Riky Salamanca MD Turbidity CLEAR Normal CLEAR [facility] Comment on above: Performed By: #### U EUGENIO Ram #### [address] [phone] Cash Accountant: Riky Salamanca MD Urobilinogen,Ur Normal Normal NORM [facility] Comment on above: Performed By: #### U EUGENIO Ram #### [address] [phone] Cash Accountant: Riky Salamanca MD Urinalysis,Microon 0 ----- Normal [facility] Comment on above: Performed By: #### U RC #### [facility] [address] [place] [address] [phone] Cash Accountant: Aj Ramirez MD [address] [phone] Cash Accountant: Riky Salamanca MD Bacteria LM.HPF (Urine sed) [#/Area] MODERATE Abnormal NONE [facility] Comment on above: Performed By: #### U RC #### [facility] [address] [place] [address] [phone] Cash Accountant: Aj Ramirez MD [address] [phone] Cash Accountant: Riky Salamanca MD Casts LM.LPF (Urine sed) [#/Area] 0 TO 2 HYALINE Normal 0-8 [facility] Comment on above: Result Comment: Refe rence range defined for non-centrifuged specimen. Performed By: #### U RC #### [facility] [address] [place] [address] [phone] Cash Accountant: Aj Ramirez MD [address] [phone] Cash Accountant: Riky Salamanca MD Epithelial cells LM.HPF (Urine sed) [#/Area] None Normal 0-5 [facility] Comment on above: Performed By: #### U RC #### [facility] [address] [place] [address] [phone] Cash Accountant: Aj Ramirez MD [address] [phone] Cash Accountant: Riky Salamanca MD RBC (U) [#/Vol] 2 TO 5 Normal 0-4 [facility] Comment on above: Result Comment: Refe rence range defined for non-centrifuged specimen. Performed By: #### U RC #### [facility] [address] [place] [address] [phone] Cash Accountant: Aj Ramirez MD [address] [phone] Cash Accountant: Riky Salamanca MD WBC (U) [#/Vol] 20 TO 50 Normal 0-5 [facility] Comment on above: Performed By: #### U RC #### [facility] [address] [place] [address] [phone] Cash Accountant: Aj Ramirez MD [address] [phone] Cash Accountant: Riky Salamanca MD Urinalysis, Routineon 2019 Comment NOT REPORTED Normal [facility] Comment on above: Performed By: #### U A, UMICAO #### [address] [phone] Cash Accountant: Riky Salamanca MD Urinalysis,Microon 0 Amorphous sediment LM Ql (Urine sed) NOT REPORTED Normal [facility] Comment on above: Performed By: #### U RC #### [facility] [address] [place] [phone] Cash Accountant: Aj Ramirez MD [address] [address] Cash Accountant: Riky Salamanca MD Crystals LM Nom (Urine sed) NOT REPORTED Normal [facility] Comment on above: Performed By: #### U RC #### [facility] [address] [place] [address] [phone] Cash Accountant: Aj Ramirez MD [address] [phone] Cash Accountant: Riky Salamanca MD Epithelial, Renal NOT REPORTED Normal 0 [facility] Comment on above: Performed By: #### U RC #### [facility] [address] [place] [address] [phone] Cash Accountant: Aj Ramirez MD [address] [phone] Cash Accountant: Riky Salamanca MD Mucus Strands NOT REPORTED Normal [facility] Comment on above: Performed By: #### U RC #### [facility] [address] [place] [address] [phone] Cash Accountant: Aj Ramirez MD [address] [phone] Cash Accountant: Riky Salamanca MD Other Observations NOT REPORTED Normal NREQ [facility] Comment on above: Performed By: #### U RC #### [facility] [address] [place] [phone] Cash Accountant: Aj Ramirez MD [address] [phone] Cash Accountant: Riky Salamanca MD Trichomonas NOT REPORTED Normal NONE [facility] Comment on above: Performed By: #### U RC #### [facility] [address] [place] [address] Cash Accountant: Aj Ramirez MD [address] [phone] Cash Accountant: Riky Salamanca MD Yeast LM Ql (Urine sed) NOT REPORTED Normal NONE [facility] Comment on above: Performed By: #### U RC #### [facility] [place] [address] Cash Accountant: Aj Ramirez MD [address] [address] Cash Accountant: Riky Salamanca MD HCV RNA,Quant,PCRon 04-29-20 20 HCV RNA,Quant,PCR Specimen Description .PLASMA Special Requests NOT REPORTED Direct Exam HCV RNA NOT DETECTED This test is a sensitive method for quantitating HCV RNA viral loads in plasma. It utilizes RT-PCR in the FDA approved Nba Ampliprep/Taqman 48 System. This test is intended for detecting and quantifying HCV RNA viral loads in the range of 15 IU/mL to 100,000,000 IU/mL (1.18 log IU/mL to 8.00 log IU/mL). Patients should have confirmed HCV infection prior to RNA quantification. This test has been developed to monitor disease progression and efficacy of anti-HCV drug therapy. This test has been optimized for HCV genotypes 1-6. Report Status FINAL 04/29/2020 Normal [facility] Comment on above: Performed By: #### U RC #### [facility] [place] [address] Cash Accountant: Aj Ramirez MD [address] [phone] Cash Accountant: Riky Salamanca MD C-Reactive Proteinon 020 CRP [Mass/Vol] 4.2 mg/L Normal 0.0-5.0 [facility] Comment on above: Performed By: #### U A, UMICAO #### [address] [address] Cash Accountant: Riky Salamanca MD Comp Metabolic Profon 2019 (cont.) Normal [facility] Comment on above: Result Comment: Aver age GFR for 60-69 years old: 85 mL/min/1.73sq m Chronic Kidney Disease: <60 mL/min/1.73sq m Kidney failure: <15 mL/min/1.73sq m eGFR calculated using average adult body mass. Additional eGFR calculator available at: http://www.[employer] [place]/multiple_crcl_2012.htm Performed By: #### U RC #### [facility] [address] [place] [address] Cash Accountant: Aj Ramirez MD [address] [phone] Cash Accountant: Riky Salamanca MD Albumin [Mass/Vol] 4.3 g/dL Normal 3.5-5.2 [facility] Comment on above: Performed By: #### U RC #### [facility] [address] [place] [address] Cash Accountant: Aj Ramirez MD [address] [phone] Cash Accountant: Riky Salamanca MD Albumin/Globulin [Mass ratio] 1.9 {ratio} Normal 1.0-2.5 [facility] Comment on above: Performed By: #### U RC #### [facility] [address] [place] [address] Cash Accountant: Aj Ramirez MD [facility] [employer] [address] [place] [phone] Cash Accountant: Riky Salamanca MD Alkaline Phos 121 U/L Normal 40-129 [facility] Comment on above: Performed By: #### U RC #### [facility] [address] [place] [address] Cash Accountant: Aj Ramirez MD [address] [phone] Cash Accountant: Riky Salamanca MD ALT [Catalytic activity/Vol] 15 U/L Normal 5-41 [facility] Comment on above: Performed By: #### U RC #### [facility] [address] [place] [address] Cash Accountant: Aj Ramirez MD [address] [phone] Cash Accountant: Riky Salamanca MD Anion gap [Moles/Vol] 15 mmol/L Normal 9-17 [facility] Comment on above: Performed By: #### U RC #### [facility] [address] [place] [phone] Cash Accountant: Aj Ramirez MD [address] [phone] Cash Accountant: Riky Salamanca MD AST [Catalytic activity/Vol] 16 U/L Normal <40 [facility] Comment on above: Performed By: #### U RC #### [facility] [address] [place] [phone] Cash Accountant: Aj Ramirez MD [address] [phone] Cash Accountant: Riky Salamanca MD Bilirubin Ql (U) 0.19 mg/dL Low 0.3-1.2 [facility] Comment on above: Performed By: #### U RC #### [facility] [address] [place] [phone] Cash Accountant: Aj Ramirez MD [address] [phone] Cash Accountant: Riky Salamanca MD Calcium [Mass/Vol] 9.3 mg/dL Normal 8.6-10.4 [facility] Comment on above: Performed By: #### U RC #### [facility] [address] [place] [address] Cash Accountant: Aj Ramirez MD [address] [phone] Cash Accountant: Riky Salamanca MD Chloride [Moles/Vol] 99 mmol/L Normal 98-107 [facility] Comment on above: Performed By: #### U RC #### [facility] [address] [place] [address] Cash Accountant: Aj Ramirez MD [address] [phone] Cash Accountant: Riky Salamanca MD CO2 [Moles/Vol] 24 mmol/L Normal 20-31 [facility] Comment on above: Performed By: #### U RC #### [facility] [address] [place] [address] Cash Accountant: Aj Ramirez MD [address] [address] Cash Accountant: Riky Salamanca MD Creatinine [Mass/Vol] 0.90 mg/dL Normal 0.70-1.20 [facility] Comment on above: Performed By: #### U RC #### [facility] [address] [place] [address] Cash Accountant: Aj Ramirez MD [facility] [employer] [address] [place] [phone] Cash Accountant: Riky Salamanca MD GFR, Amer >60 Normal >60 [facility] Comment on above: Performed By: #### U RC #### [facility] [address] [place] [address] Cash Accountant: Aj Ramirez MD [address] [phone] Cash Accountant: Riky Salamanca MD GFR,non Amer >60 Normal >60 [facility] Comment on above: Performed By: #### U RC #### [facility] [address] [place] [address] Cash Accountant: Aj Ramirez MD [address] [address] Cash Accountant: Riky Salamanca MD Glucose [Mass/Vol] 115 mg/dL High 70-99 [facility] Comment on above: Performed By: #### U RC #### [facility] [address] [place] [phone] Cash Accountant: Aj Ramirez MD [address] [phone] Cash Accountant: Riky Salamanca MD Potassium [Moles/Vol] 3.9 mmol/L Normal 3.7-5.3 [facility] Comment on above: Performed By: #### U RC #### [facility] [address] [place] [address] Cash Accountant: Aj Ramirez MD [facility] [employer] [address] [place] [address] Cash Accountant: Riky Salamanca MD Protein [Mass/Vol] 6.6 g/dL Normal 6.4-8.3 [facility] Comment on above: Performed By: #### U RC #### [facility] [address] [place], [place] [address] [address] Cash Accountant: Aj Ramirez MD [facility] [employer] [address] [place] [phone] Cash Accountant: Riky Salamanca MD Sodium [Moles/Vol] 138 mmol/L Normal 135-144 [facility] Comment on above: Performed By: #### U RC #### [facility] [address] [place] [address] Cash Accountant: Aj Ramirez MD [address] [address] Cash Accountant: Riky Salamanca MD Urea nitrogen [Mass/Vol] 6 mg/dL Low 8-23 [facility] Comment on above: Performed By: #### U RC #### [facility] [address] [place] [address] Cash Accountant: Aj Ramirez MD [address] [address] Cash Accountant: Riky Salamanca MD Hepatitis Acute [facility] 04-26 Hep A Ab,IgM NONREACTIVE Normal NR [facility] Comment on above: Performed By: #### U A, UMICAO #### [address] [address] Cash Accountant: Riky Salamanca MD Hep B Core Ab,IgM NONREACTIVE Normal [facility] Comment on above: Performed By: #### U A, UMICAO #### [address] [address] Cash Accountant: Riky Salamanca MD Hep B Surf Ag NONREACTIVE Normal [facility] Comment on above: Performed By: #### U A, UMICAO #### [address] [address] Cash Accountant: Riky Salamanca MD Hep C Ab REACTIVE Abnormal [facility] Comment on above: Result Comment: The hepatitis C procedure used in our laboratory is a Chemiluminescent test specific for three recombinant HCV antigens. A negative anti-HCV result indicates that the antibodies to hepatitis C virus are not present at this time. Individuals with reactive anti-HCV should be considered infected and infectious until proven otherwise. Confirmation of all equivocal or reactive results is recommended by ordering HCV RNA by PCR. Results reported to the appropriate Health Department Performed By: #### U EUGENIO Ram #### [address] [address] Cash Accountant: Riky Salamanca MD Hepatitis Panel, Acuteon HAV IgM IA Qn (S) NONREACTIVE NONREACTIVE [place] Hep B Core Ab, IgM NONREACTIVE NONREACTIVE [place] Hepatitis B Surface Ag NONREACTIVE NONREACTIVE [place] Hepatitis C Ab REACTIVE Abnormal NONREACTIVE [place] Comment on above: The hepatitis C procedure used in our laboratory is a Chemiluminescent test specific for three recombinant HCV antigens. A negative anti-HCV result indicates that the antibodies to hepatitis C virus are not present at this time. Individuals with reactive anti-HCV should be considered infected and infectious until proven otherwise. Confirmation of all equivocal or reactive results is recommended by ordering HCV RNA by PCR. Results reported to the appropriate Health Department Interpretation and review of laboratory results Abnormal [place] C-Reactive Proteinon 020 CRP [Mass/Vol] 4.2 mg/L 0 - 5 mg/L [place] Comp Metabolic Profon 2019 BUN/CRE Ratio NOT REPORTED Normal -20 [facility] Comment on above: Performed By: #### U RC #### [facility] [address] [place] [address] Cash Accountant: Aj Ramirez MD [address] [phone] Cash Accountant: Riky Salamanca MD Staging: NOT REPORTED Normal [facility] Comment on above: Performed By: #### U RC #### [facility] [address] [place] [address] Cash Accountant: Aj Ramirez MD [facility] [employer] [address] [place] [phone] Cash Accountant: Riky Salamanca MD Comprehensive Metabolic Pane yrn 04-25-2020 Albumin [Mass/Vol] 4.3 g/dL 3.5 - 5.2 g/dL [place] Albumin/Globulin [Mass ratio] 1.9 {ratio} [place] ALP [Catalytic activity/Vol] 121 U/L 40 - 129 U/L [place] ALT [Catalytic activity/Vol] 15 U/L 5 - 41 U/L [place] Anion gap [Moles/Vol] 15 mmol/L 9 - 17 mmol/L [place] AST [Catalytic activity/Vol] 16 U/L <40 [place] Bilirubin Ql (U) 0.19 mg/dL Low 0.3 - 1.2 mg/dL [place] Bun/Cre Ratio NOT REPORTED [place] Calcium [Mass/Vol] 9.3 mg/dL 8.6 - 10.4 mg/dL [place] Chloride [Moles/Vol] 99 mmol/L 98 - 107 mmol/L [place] CO2 [Moles/Vol] 24 mmol/L 20 - 31 mmol/L [place] Creatinine [Mass/Vol] 0.9 mg/dL 0.7 - 1.2 mg/dL [place] GFR >60 >60 mL/min [place] GFR Non- >60 >60 mL/min [place] GFR/1.73 sq M predicted among non-blacks MDRD (S/P/Bld) [Vol rate/Area] NOT REPORTED [place] GFR/1.73 sq M predicted among non-blacks MDRD (S/P/Bld) [Vol rate/Area] [place] Comment on above: Average GFR for 60-6 9 years old: 85 mL/min/1.73sq m Chronic Kidney Disease: <60 mL/min/1.73sq m Kidney failure: <15 mL/min/1.73sq m eGFR calculated using average adult body mass. Additional eGFR calculator available at: http://www.[employer] [place]/multiple_crcl_2012.htm Glucose [Mass/Vol] 115 mg/dL High 70 - 99 mg/dL [place] Interpretation and review of laboratory results Abnormal [place] Potassium [Moles/Vol] 3.9 mmol/L 3.7 - 5.3 mmol/L [place] Protein [Mass/Vol] 6.6 g/dL 6.4 - 8.3 g/dL [place] Sodium [Moles/Vol] 138 mmol/L 135 - 144 mmol/L [place] Urea nitrogen [Mass/Vol] 6 mg/dL Low 8 - 23 mg/dL [place] Hepatic Function Panelon Albumin [Mass/Vol] 4.7 g/dL 3.5 - 5.2 g/dL [place] Albumin/Globulin [Mass ratio] 1.7 {ratio} [place] ALP [Catalytic activity/Vol] 117 U/L 40 - 129 U/L [place] ALT [Catalytic activity/Vol] 61 U/L High 5 - 41 U/L [place] AST [Catalytic activity/Vol] 40 U/L High <40 [place] Bilirubin Ql (U) 0.35 mg/dL 0.3 - 1.2 mg/dL [place] Bilirubin, Indirect 0.24 mg/dL 0 - 1 mg/dL [place] Bilirubin.direct [Mass/Vol] 0.11 mg/dL <0.31 [place] Interpretation and review of laboratory results Abnormal [place] Protein [Mass/Vol] 7.4 g/dL 6.4 - 8.3 g/dL [place], [place] Liver Profileon 2020 Albumin [Mass/Vol] 4.7 g/dL Normal 3.5-5.2 [facility] Comment on above: Performed By: #### L IVP #### [facility] [employer] [facility] [place] [address] Cash Accountant: Riky Salamanca MD Albumin/Globulin [Mass ratio] 1.7 {ratio} Normal 1.0-2.5 [facility] Comment on above: Performed By: #### L IVP #### [address] [address] Cash Accountant: Riky Salamanca MD Alkaline Phos 117 U/L Normal 40-129 [facility] Comment on above: Performed By: #### L IVP #### [address] [address] Cash Accountant: Riky Salamanca MD ALT [Catalytic activity/Vol] 61 U/L High 5-41 [facility] Comment on above: Performed By: #### L IVP #### [facility] [employer] [address] [place] [phone] Cash Accountant: Riky Salamanca MD AST [Catalytic activity/Vol] 40 U/L High <40 [facility] Comment on above: Performed By: #### L IVP #### [facility] [employer] [address] [place] [phone] Cash Accountant: Riky Salamanca MD Bilirubin Ql (U) 0.35 mg/dL Normal 0.3-1.2 [facility] Comment on above: Performed By: #### L IVP #### [facility] [employer] [address] [place] [phone] Cash Accountant: Riky Salamanca MD Bilirubin, Indirect 0.24 mg/dL Normal 0.00-1.00 [facility] Comment on above: Performed By: #### L IVP #### [facility] [employer] [address] [place] [phone] Cash Accountant: Riky Salamanca MD Bilirubin.direct [Mass/Vol] 0.11 mg/dL Normal <0.31 [facility] Comment on above: Performed By: #### L IVP #### [address] [address] Cash Accountant: Riky Salamanca MD Protein [Mass/Vol] 7.4 g/dL Normal 6.4-8.3 [facility] Comment on above: Performed By: #### L IVP #### [facility] [place], [place] [phone] Cash Accountant: Riky Salamanca MD Globulin (S) [Mass/Vol] NOT REPORTED Normal 1.5-3.8 [place] Comment on above: Performed By: #### L IVP #### [facility] [place] [address] Cash Accountant: Riky Salamanca MD HCV RNA,Quant,PCRon 03-15-20 20 HCV RNA,Quant,PCR Specimen Description .PLASMA Special Requests NOT REPORTED Direct Exam HCV RNA DETECTED <15 IU/ML (<1.18 LOG IU/ML) This test is a sensitive method for quantitating HCV RNA viral loads in plasma. It utilizes RT-PCR in the FDA approved Nba Ampliprep/Taqman 48 System. This test is intended for detecting and quantifying HCV RNA viral loads in the range of 15 IU/mL to 100,000,000 IU/mL (1.18 log IU/mL to 8.00 log IU/mL). Patients should have confirmed HCV infection prior to RNA quantification. This test has been developed to monitor disease progression and efficacy of anti-HCV drug therapy. This test has been optimized for HCV genotypes 1-6. Results reported to the appropriate Health Department Report Status FINAL 03/15/2020 Normal [facility] Comment on above: Performed By: #### U A UMICAO #### [facility] [employer] [address] [place], [place] [phone] Cash Accountant: Riky Salamanca MD CBC Auto Differentialon 02-17 Basophils (Bld) [#/Vol] 10*3/uL [place] Basophils/100 WBC (Bld) 0 % 0 - 2 % [place] Differential Type NOT REPORTED [place] Eosinophils (Bld) [#/Vol] 0.11 10*3/uL [place] Eosinophils/100 WBC (Bld) 2 % 1 - 4 % [place] Erythrocyte distribution width (RBC) [Ratio] 13.9 % 11.8 - 14.4 % [place] Hematocrit (Bld) [Volume fraction] 44.7 % 40.7 - 50.3 % [place] Hemoglobin (Bld) [Mass/Vol] 14.8 g/dL 13 - 17 g/dL [place] Immature granulocytes (Bld) [#/Vol] 0.04 10*3/uL [place] Immature granulocytes (Bld) [#/Vol] 1 % High 0 [place] Interpretation and review of laboratory results Abnormal [place] Lymphocytes (Bld) [#/Vol] 1.73 10*3/uL [place] Lymphocytes/100 WBC (Bld) 37 % 24 - 43 % [place] MCH (RBC) [Entitic mass] 29.5 pg 25.2 - 33.5 pg [place] MCHC (RBC) [Mass/Vol] 33.1 g/dL 28.4 - 34.8 g/dL [place] MCV (RBC) [Entitic vol] 89.0 fL 82.6 - 102.9 fL [place] Monocytes (Bld) [#/Vol] 0.45 10*3/uL [place] Monocytes/100 WBC (Bld) 10 % 3 - 12 % [place] Platelet mean volume (Bld) [Entitic vol] 10.6 fL 8.1 - 13.5 fL [place] Platelets (Bld) [#/Vol] 259 10*3/uL [place] Platelets (Bld) [#/Vol] NOT REPORTED [place] RBC (Bld) [#/Vol] 5.02 10*6/uL 4.21 - 5.77 m/uL [place] RBC morphology finding Nom (Bld) NOT REPORTED [place] Segmented neutrophils/100 WBC (Bld) 50 % 36 - 65 % [place] Segs Absolute 2.32 [place] WBC (Bld) [#/Vol] 0.0 10*3/uL 0.0 per 100 WBC [place] WBC (Bld) [#/Vol] 4.7 10*3/uL [place] WBC Morphology NOT REPORTED [place], [place] CBC with Diffon 03-14-2020 Abs. Basophil <0.03 Normal 0.00-0.20 [facility] Comment on above: Performed By: #### U AEUGENIO #### [facility] [employer] [address] [place] [phone] Cash Accountant: Riky Salamanca MD Abs.Imm.Granulocyte 0.04 k/uL Normal 0.00-0.30 [facility] Comment on above: Performed By: #### U AEUGENIO #### [address] [address] Cash Accountant: Riky Salamanca MD Abs.Neutrophil (Seg) 2.32 k/uL Normal 1.50-8.10 [facility] Comment on above: Performed By: #### U AEUGENIO #### [facility] [employer] [address] [place] [phone] Cash Accountant: Riky Salamanca MD Basophils/100 WBC (Bld) 0 % Normal 0-2 [facility] Comment on above: Performed By: #### U AEUGENIO #### [facility] [employer] [address] [place] [phone] Cash Accountant: Riky Salamanca MD Eosinophils (Bld) [#/Vol] 0.11 10*3/uL Normal 0.00-0.44 [facility] Comment on above: Performed By: #### U ADIVYAICAO #### [facility] [employer] [address] [place] [phone] Cash Accountant: Riky Salamanca MD Eosinophils/100 WBC (Bld) 2 % Normal 1-4 [facility] Comment on above: Performed By: #### U AEUGENIO #### [address] [address] Cash Accountant: Riky Salamanca MD Erythrocyte distribution width (RBC) [Ratio] 13.9 % Normal 11.8-14.4 [facility] Comment on above: Performed By: #### U AEUGENIO #### [facility] [employer] [address] [place] [phone] Cash Accountant: Riky Salamanca MD Hematocrit (Bld) [Volume fraction] 44.7 % Normal 40.7-50.3 [facility] Comment on above: Performed By: #### U EUGENIO Ram #### [facility] [employer] [address] [place] [phone] Cash Accountant: Riky Salamanca MD Hemoglobin (Bld) [Mass/Vol] 14.8 g/dL Normal 13.0-17.0 [facility] Comment on above: Performed By: #### U EUGENIO Ram #### [address] [address] Cash Accountant: Riky Salamanca MD Immature granulocytes (Bld) [#/Vol] 1 % High 0 [facility] Comment on above: Performed By: #### EUGENIO Cruz #### [address] [address] Cash Accountant: Riky Salamanca MD Lymphocytes (Bld) [#/Vol] 1.73 10*3/uL Normal 1.10-3.70 [facility] Comment on above: Performed By: #### U AMOR RamO #### [facility] [employer] [address] [place] [phone] Cash Accountant: Riky Salamanca MD Lymphocytes/100 WBC (Bld) 37 % Normal 24-43 [facility] Comment on above: Performed By: #### U A, UMICAO #### [address] [address] Cash Accountant: Riky Salamanca MD MCH (RBC) [Entitic mass] 29.5 pg Normal 25.2-33.5 [facility] Comment on above: Performed By: #### U A, UMICAO #### [address] [address] Cash Accountant: Riky Salamanca MD MCHC (RBC) [Mass/Vol] 33.1 g/dL Normal 28.4-34.8 [facility] Comment on above: Performed By: #### U A, UMICAO #### [address] [phone] Cash Accountant: Riky Salamanca MD MCV (RBC) [Entitic vol] 89.0 fL Normal 82.6-102.9 [facility] Comment on above: Performed By: #### U A, UMICAO #### [address] [address] Cash Accountant: Riky Salamanca MD Monocytes (Bld) [#/Vol] 0.45 10*3/uL Normal 0.10-1.20 [facility] Comment on above: Performed By: #### U A, UMICAO #### [address] [address] Cash Accountant: Riky Salamanca MD Monocytes/100 WBC (Bld) 10 % Normal 3-12 [facility] Comment on above: Performed By: #### U A, UMICAO #### [address] [address] Cash Accountant: Riky Salamanca MD Neutrophil (Seg) 50 % Normal 36-65 [facility] Comment on above: Performed By: #### U A, UMICAO #### [address] [address] Cash Accountant: Riky Salamanca MD NRBC Automated 0.0 per 100 WBC Normal 0.0 [facility] Comment on above: Performed By: #### U A, UMICAO #### [address] [address] Cash Accountant: Riky Salamanca MD Platelet mean volume (Bld) [Entitic vol] 10.6 fL Normal 8.1-13.5 [facility] Comment on above: Performed By: #### U A, UMICAO #### [address] [address] Cash Accountant: Riky Salamanca MD Platelets (Bld) [#/Vol] 259 10*3/uL Normal 138-453 [facility] Comment on above: Performed By: #### U A, UMICAO #### [address] [address] Cash Accountant: Riky Salamanca MD RBC (Bld) [#/Vol] 5.02 10*6/uL Normal 4.21-5.77 [facility] Comment on above: Performed By: #### U A, UMICAO #### [address] [address] Cash Accountant: Riky Salamanca MD WBC (Bld) [#/Vol] 4.7 10*3/uL Normal 3.5-11.3 [facility] Comment on above: Performed By: #### U A, UMICAO #### [address] [address] Cash Accountant: Riky Salamanca MD Auto Diff Performed NOT REPORTED Normal [facility] Comment on above: Performed By: #### U A, UMICAO #### [address] [address] Cash Accountant: Riky Salamanca MD Platelets (Bld) [#/Vol] NOT REPORTED Normal [facility] Comment on above: Performed By: #### U A, UMICAO #### [facility] [employer] [address] [place] [phone] Cash Accountant: Riky Salamanca MD RBC morphology finding Nom (Bld) NOT REPORTED Normal [facility] Comment on above: Performed By: #### U A, UMICAO #### [facility] [address] [place] [address] Cash Accountant: Riky Salamanca MD WBC Morphology NOT REPORTED Normal [facility] Comment on above: Performed By: #### U A, UMICAO #### [facility] [employer] [address] [place] [address] Cash Accountant: Riky Salamanca MD Creatinine w/GFRon 0 (cont.) Normal [facility] Comment on above: Result Comment: Aver age GFR for 50-59 years old: 93 mL/min/1.73sq m Chronic Kidney Disease: <60 mL/min/1.73sq m Kidney failure: <15 mL/min/1.73sq m eGFR calculated using average adult body mass. Additional eGFR calculator available at: http://www.[employer] [place]/multiple_crcl_2012.htm Performed By: #### U A, UMICAO #### [facility] [employer] [address] [place] [phone] Cash Accountant: Riky Salamanca MD Creatinine [Mass/Vol] 0.72 mg/dL Normal 0.70-1.20 [facility] Comment on above: Performed By: #### U A, UMICAO #### [facility] [employer] [address] [place] [phone] Cash Accountant: Riky Salamanca MD GFR, Amer >60 Normal >60 [facility] Comment on above: Performed By: #### U A, UMICAO #### [facility] [address] [place] [address] [phone] Cash Accountant: Riky Salamanca MD GFR,non Amer >60 Normal >60 [facility] Comment on above: Performed By: #### U A, AMORO #### [facility] [address] [place], [place] [phone] Cash Accountant: Riky Salamanca MD Staging: NOT REPORTED Normal [facility] Comment on above: Performed By: #### U A, AMORO #### [facility] [address] [place], [place] [phone] Cash Accountant: Riky Salamanca MD Creatinine, Serumon 03-14-20 20 Creatinine [Mass/Vol] 0.72 mg/dL 0.7 - 1.2 mg/dL [place] GFR >60 >60 mL/min [place] GFR Non- >60 >60 mL/min [place] GFR/1.73 sq M predicted among non-blacks MDRD (S/P/Bld) [Vol rate/Area] [place] Comment on above: Average GFR for 50-5 9 years old: 93 mL/min/1.73sq m Chronic Kidney Disease: <60 mL/min/1.73sq m Kidney failure: <15 mL/min/1.73sq m eGFR calculated using average adult body mass. Additional eGFR calculator available at: http://www.[employer] [place]/multiple_crcl_2012.htm GFR/1.73 sq M predicted among non-blacks MDRD (S/P/Bld) [Vol rate/Area] NOT REPORTED [place] Hepatic Function Panelon Albumin [Mass/Vol] 4.1 g/dL 3.5 - 5.2 g/dL [place] Albumin/Globulin [Mass ratio] 1.3 {ratio} [place] ALP [Catalytic activity/Vol] 122 U/L 40 - 129 U/L [place] ALT [Catalytic activity/Vol] 25 U/L 5 - 41 U/L [place] AST [Catalytic activity/Vol] 26 U/L <40 [place] Bilirubin Ql (U) 0.29 mg/dL Low 0.3 - 1.2 mg/dL [place] Bilirubin, Indirect CANNOT BE CALCULATED 0 - 1 mg/dL [place] Bilirubin.direct [Mass/Vol] mg/dL <0.31 mg/dL [place] Globulin (S) [Mass/Vol] NOT REPORTED 1.5 - 3.8 g/dL [place] Interpretation and review of laboratory results Abnormal [place] Protein [Mass/Vol] 7.3 g/dL 6.4 - 8.3 g/dL [place] Liver Profileon 03-14-2020 Albumin [Mass/Vol] 4.1 g/dL Normal 3.5-5.2 [facility] Comment on above: Performed By: #### EUGENIO Cruz #### [address] [address] Cash Accountant: Riky Salamanca MD Albumin/Globulin [Mass ratio] 1.3 {ratio} Normal 1.0-2.5 [facility] Comment on above: Performed By: #### EUGENIO Cruz #### [address] [phone] Cash Accountant: Riky Salamanca MD Alkaline Phos 122 U/L Normal 40-129 [facility] Comment on above: Performed By: #### EUGENIO Cruz #### [facility] [employer] [address] [place] [phone] Cash Accountant: Riky Salamanca MD ALT [Catalytic activity/Vol] 25 U/L Normal 5-41 [facility] Comment on above: Performed By: #### EUGENIO Cruz #### [facility] [employer] [facility] [place] [address] Cash Accountant: Riky Salamanca MD AST [Catalytic activity/Vol] 26 U/L Normal <40 [facility] Comment on above: Performed By: #### U A, UMICAO #### [facility] [place] [address] Cash Accountant: Riky Salamanca MD Bilirubin Ql (U) 0.29 mg/dL Low 0.3-1.2 [facility] Comment on above: Performed By: #### U A, UMICAO #### [facility] [address] [place] [phone] Cash Accountant: Riky Salamanca MD Bilirubin, Indirect CANNOT BE CALCULATED Normal 0.00-1 .00 [facility] Comment on above: Performed By: #### U A, UMICAO #### [facility] [address] [place] [phone] Cash Accountant: Riky Salamanca MD Bilirubin.direct [Mass/Vol] mg/dL Normal <0.31 [facility] Comment on above: Performed By: #### U A, UMICAO #### [facility] [employer] [address] [place] [address] Cash Accountant: Riky Salamanca MD Protein [Mass/Vol] 7.3 g/dL Normal 6.4-8.3 [facility] Comment on above: Performed By: #### U A, UMICAO #### [facility] [employer] [address] [place] [phone] Cash Accountant: Riky Salamanca MD Globulin (S) [Mass/Vol] NOT REPORTED Normal 1.5-3.8 [facility] Comment on above: Performed By: #### U A, UMICAO #### [facility] [employer] [address] [place] [phone] Cash Accountant: Riky Salamanca MD Basic Metabolic Panelon - Anion gap [Moles/Vol] 17 mmol/L 9 - 17 mmol/L [place] Calcium [Mass/Vol] 9.5 mg/dL 8.6 - 10.4 mg/dL [place] Chloride [Moles/Vol] 98 mmol/L 98 - 107 mmol/L [place] CO2 [Moles/Vol] 22 mmol/L 20 - 31 mmol/L [place] Creatinine [Mass/Vol] 0.83 mg/dL 0.7 - 1.2 mg/dL [place] GFR >60 >60 mL/min [place] GFR Non- >60 >60 mL/min [place] GFR/1.73 sq M predicted among non-blacks MDRD (S/P/Bld) [Vol rate/Area] NOT REPORTED [place] GFR/1.73 sq M predicted among non-blacks MDRD (S/P/Bld) [Vol rate/Area] [place] Comment on above: Average GFR for 50-5 9 years old: 93 mL/min/1.73sq m Chronic Kidney Disease: <60 mL/min/1.73sq m Kidney failure: <15 mL/min/1.73sq m eGFR calculated using average adult body mass. Additional eGFR calculator available at: http://www.[employer]/multiple_crcl_2012.htm Glucose [Mass/Vol] 138 mg/dL High 70 - 99 mg/dL [place] Interpretation and review of laboratory results Abnormal [place] Potassium [Moles/Vol] 4.3 mmol/L 3.7 - 5.3 mmol/L [place] Sodium [Moles/Vol] 137 mmol/L 135 - 144 mmol/L [place] Urea nitrogen [Mass/Vol] 6 mg/dL 6 - 20 mg/dL [place] Basic Metabolic Profon 02-25 (cont.) Normal [facility] Comment on above: Result Comment: Aver age GFR for 50-59 years old: 93 mL/min/1.73sq m Chronic Kidney Disease: <60 mL/min/1.73sq m Kidney failure: <15 mL/min/1.73sq m eGFR calculated using average adult body mass. Additional eGFR calculator available at: http://www.[employer]rph.com/multiple_crcl_2012.htm Performed By: #### U RI, BMP #### [facility] [address] [place] [phone] Cash Accountant: Riky Salamanca MD Anion gap [Moles/Vol] 17 mmol/L Normal 9-17 [facility] Comment on above: Performed By: #### U RI, BMP #### [facility] [address] [place] [phone] Cash Accountant: Riky Salamanca MD Calcium [Mass/Vol] 9.5 mg/dL Normal 8.6-10.4 [facility] Comment on above: Performed By: #### U RI, BMP #### [facility] [employer] [address] [place] [phone] Cash Accountant: Riky Salamanca MD Chloride [Moles/Vol] 98 mmol/L Normal 98-107 [facility] Comment on above: Performed By: #### U RI, BMP #### [facility] [employer] [address] [place] [phone] Cash Accountant: Riky Salamanca MD CO2 [Moles/Vol] 22 mmol/L Normal 20-31 [facility] Comment on above: Performed By: #### U RI, BMP #### [facility] [employer] [address] [place] [phone] Cash Accountant: Riky Salamanca MD Creatinine [Mass/Vol] 0.83 mg/dL Normal 0.70-1.20 [facility] Comment on above: Performed By: #### U RI, BMP #### [facility] [address] [place] [phone] Cash Accountant: Riky Salamanca MD GFR, Amer >60 Normal >60 [facility] Comment on above: Performed By: #### U RI, BMP #### [facility] [employer] [address] [place] [phone] Cash Accountant: Riky Salamanca MD GFR,non Amer >60 Normal >60 [facility] Comment on above: Performed By: #### U RI, BMP #### [address] [phone] Cash Accountant: Riky Salamanca MD Glucose [Mass/Vol] 138 mg/dL High 70-99 [facility] Comment on above: Performed By: #### U RI, BMP #### [address] [address] Cash Accountant: Riky Salamanca MD Potassium [Moles/Vol] 4.3 mmol/L Normal 3.7-5.3 [facility] Comment on above: Performed By: #### U RI, BMP #### [address] [address] Cash Accountant: Riky Salamanca MD Sodium [Moles/Vol] 137 mmol/L Normal 135-144 [facility] Comment on above: Performed By: #### U RI, BMP #### [address] [phone] Cash Accountant: Riky Salamanca MD Urea nitrogen [Mass/Vol] 6 mg/dL Normal 6-20 [facility] Comment on above: Performed By: #### U RI, BMP #### [address] [address] Cash Accountant: Riky Salamanca MD Bun/Cre Ratio NOT REPORTED Normal 9-20 [facility] [place], [place] Comment on above: Performed By: #### U RI, BMP #### [address] [phone] Cash Accountant: Riky Salamanca MD Staging: NOT REPORTED Normal [facility] Comment on above: Performed By: #### U RI, BMP #### [address] [address] Cash Accountant: Riky Salamanca MD Uric Acidon 02-26-2020 Urate [Mass/Vol] 3.8 mg/dL Normal 3.4-7.0 [facility] Comment on above: Performed By: #### U RI, [facility] #### [address] [phone] Cash Accountant: Riky Salamanca MD Urate [Mass/Vol] 3.8 mg/dL 3.4 - 7 mg/dL [place] Cult,Urineon 02-06-2020 Cult,Urine Specimen Description .CATHETERIZED URINE Special Requests [id number] Culture KLEBSIELLA PNEUMONIAE >[id number] CFU/ML Report Status FINAL 02/05/2020 SUSCEPTIBILITY Organism KLEBSIELLA PNEUMONIAE Method ROOPA Amikacin NOT REPORTED Ampicillin >=32 RESISTANT Ampicillin/Sulbactam NOT REPORTED Aztreonam <=1 SUSCEPTIBLE Cefazolin <=4 SUSCEPTIBLE Cefazolin sensitivity results can be used to predict the effectiveness of oral cephalosporins (eg. Cephalexin) in uncomplicated Urinary Tract Infections due to E. coli, K. pneumoniae, and P. mirabilis Cefepime NOT REPORTED Ceftriaxone <=1 SUSCEPTIBLE Ciprofloxacin <=0.25 SUSCEPTIBLE Ertapenem NOT REPORTED ESBL NEGATIVE Gentamicin <=1 SUSCEPTIBLE Meropenem NOT REPORTED Nitrofurantoin 64 INTERMEDIATE Tigecycline NOT REPORTED Tobramycin <=1 SUSCEPTIBLE Trimethoprim/Sulfa <=20 SUSCEPTIBLE Piperacillin/Tazobact am 16 SUSCEPTIBLE Normal [facility] Comment on above: Performed By: #### U RC #### [facility] [address] [place] [address] Cash Accountant: Aj Ramirez MD [facility] [employer] [address] [place] [phone] Cash Accountant: Riky Salamanca MD Ammoniaon 02-04-2020 Ammonia (P) [Mass/Vol] 69 umol/L High 16-60 [facility] Comment on above: Performed By: #### A MON #### [facility] [address] [place] [address] Cash Accountant: Aj Ramirez MD #### VALPC #### [facility] [employer] [address] [place] [address] Cash Accountant: Riky Salamanca MD Ammonia (P) [Mass/Vol] 69 umol/L High 16 - 60 umol/L [place] Interpretation and review of laboratory results Abnormal [place] Microscopic Urinalysison Amorphous, UA NOT REPORTED None [place], [place] Bacteria, UA MODERATE Abnormal None [place] Casts UA NOT REPORTED [place] Crystals, UA CALCIUM OXALATE Abnormal None /HPF [place] Crystals, UA FEW Abnormal None /HPF [place] Epithelial Cells UA 0 TO 2 [place] Interpretation and review of laboratory results Abnormal [place] Mucus, UA 1+ Abnormal None [place] Other Observations UA NOT REPORTED NOT REQ. [place] RBC (U) [#/Vol] 50 TO 100 [place] Renal Epithelial, UA NOT REPORTED 0 /HPF [place] Trichomonas, UA NOT REPORTED None [place], [place] WBC, UA 20 TO 50 [place] Yeast, UA NOT REPORTED None [place], [place] - [place] Urinalysison 02-04-2020 Bilirubin Urine Negative Abnormal NEGATIVE [place] Color, UA DARK YELLOW Abnormal YELLOW [place] Glucose, Ur Negative NEGATIVE [place] Interpretation and review of laboratory results Abnormal [place] Ketones Ql (U) SMALL Abnormal NEGATIVE [place] Leukocyte esterase Test strip Ql (U) MODERATE Abnormal NEGATIVE [place] Nitrite, Urine Negative NEGATIVE [place] pH, UA 6.0 [place] Protein (U) [Mass/Vol] 1+ Abnormal NEGATIVE [place] Specific [place], UA 1.036 High [place] Turbidity UA CLOUDY Abnormal CLEAR [place] Urinalysis Comments NOT REPORTED [place] Urine Hgb LARGE Abnormal NEGATIVE [place] Urobilinogen, Urine Normal Normal [place] Urinalysis, Routineon 2019 Bilirubin, SemiQt,Ur Negative Abnormal NEG [facility] Comment on above: Performed By: #### U A, UMICAO #### [facility] [address] [place] [phone] Cash Accountant: Riky Salamanca MD Acetoacetic Acid,Ur SMALL Abnormal NEG [facility] Comment on above: Performed By: #### U A, UMICAO #### [facility] [address] [place] [phone] Cash Accountant: Riky Salamanca MD Color (U) DARK YELLOW Abnormal YEL [facility] Comment on above: Performed By: #### U A, UMICAO #### [facility] [address] [place] [phone] Cash Accountant: Riky Salamanca MD Glucose Ql (U) Negative Normal NEG [facility] Comment on above: Performed By: #### U A, UMICAO #### [facility] [facility] [address] [place] [phone] Cash Accountant: Riky Salamanca MD Hemoglobin, Ur LARGE Abnormal NEG [facility] Comment on above: Performed By: #### U A, UMICAO #### [address] [address] Cash Accountant: Riky Salamanca MD Leukocyte esterase Test strip Ql (U) MODERATE Abnormal NEG [facility] Comment on above: Performed By: #### U A, UMICAO #### [address] [phone] Cash Accountant: Riky Salamanca MD Nitrite,Ur Negative Normal [facility] Comment on above: Performed By: #### U A, UMICAO #### [facility] [address] [place] [phone] Cash Accountant: Riky Salamanca MD pH (U) 6.0 [pH] Normal 5.0-8.0 [facility] Comment on above: Performed By: #### U A, UMICAO #### [facility] [address] [place] [phone] Cash Accountant: Riyk Salamanca MD Protein Ql (U) 1+ Abnormal NEG [facility] Comment on above: Performed By: #### U A, UMICAO #### [facility] [address] [place] [phone] Cash Accountant: Riky Salamanca MD Specific gravity (U) [Rel density] 1.036 High 1.005-1.030 [facility] Comment on above: Performed By: #### U A, UMICAO #### [address] [address] Cash Accountant: Riky Salamanca MD Turbidity CLOUDY Abnormal CLEAR [facility] Comment on above: Performed By: #### U A, UMICAO #### [address] [phone] Cash Accountant: Riky Salamanca MD Urobilinogen,Ur Normal Normal NORM [facility] Comment on above: Performed By: #### U A, UMICAO #### [address] [phone] Cash Accountant: Riky Salamanca MD Comment NOT REPORTED Normal [facility] Comment on above: Performed By: #### U A, UMICAO #### [facility] [address] [place] [phone] Cash Accountant: Riky Salamanca MD Urinalysis,Microon 0 ----- Normal [facility] Comment on above: Performed By: #### U A, UMICAO #### [facility] [address] [place] [phone] Cash Accountant: Riky Salamanca MD Bacteria LM.HPF (Urine sed) [#/Area] MODERATE Abnormal [facility] Comment on above: Performed By: #### U A, UMICAO #### [address] [phone] Cash Accountant: Riky Salamanca MD Crystals LM Nom (Urine sed) FEW Abnormal [facility] Comment on above: Result Comment: CALC IUM OXALATE Performed By: #### U A, UMICAO #### [facility] [address] [place] [phone] Cash Accountant: Riky Salamanca MD Epithelial cells LM.HPF (Urine sed) [#/Area] 0 TO [address] Comment on above: Performed By: #### U A, UMICAO #### [address] [address] Cash Accountant: Riky Salamanca MD Mucus Strands 1+ Abnormal [facility] Comment on above: Performed By: #### U A, UMICAO #### [address] [phone] Cash Accountant: Riky Salamanca MD RBC (U) [#/Vol] 50 TO 100 Normal 0-2 [facility] Comment on above: Performed By: #### U A, UMICAO #### [address] [phone] Cash Accountant: Riky Salamanca MD WBC (U) [#/Vol] 20 TO 50 Normal 0-5 [facility] Comment on above: Performed By: #### U A, UMICAO #### [facility] [employer] [address] [place] [phone] Cash Accountant: Riky Salamanca MD Amorphous sediment LM Ql (Urine sed) NOT REPORTED Normal [facility] Comment on above: Performed By: #### U A, UMICAO #### [address] [phone] Cash Accountant: Riky Salamanca MD Casts LM.LPF (Urine sed) [#/Area] NOT REPORTED Normal 0-2 [facility] Comment on above: Performed By: #### U A, UMICAO #### [address] [phone] Cash Accountant: Riky Salamanca MD Epithelial, Renal NOT REPORTED Normal 0 [facility] Comment on above: Performed By: #### U A, UMICAO #### [address] [phone] Cash Accountant: Riky Salamanca MD Other Observations NOT REPORTED Normal NREQ [facility] Comment on above: Performed By: #### U A UMICAO #### [address] [address] Cash Accountant: Riky Salamanca MD Trichomonas NOT REPORTED Normal NONE [facility] Comment on above: Performed By: #### U A UMICAO #### [address] [phone] Cash Accountant: Riky Salamanca MD Yeast LM Ql (Urine sed) NOT REPORTED Normal NONE [facility] Comment on above: Performed By: #### U A UMICAO #### [address] [phone] Cash Accountant: Riky Salamanca MD Valproic Acidon 02-04-2020 Valproic Acid 97 ug/mL Normal 50-125 [facility] Comment on above: Performed By: #### U A UMICAO #### [address] [phone] Cash Accountant: Riky Salamanca MD Date last dose, NOT REPORTED Normal [facility] Comment on above: Performed By: #### U A UMICAO #### [facility] [address] [place] [address] Cash Accountant: Riky Salamanca MD Dose amount NOT REPORTED Normal [facility] Comment on above: Performed By: #### U A, UMICAO #### [facility] [address], [place] [phone] Cash Accountant: Riky Salamanca MD Time last dose, NOT REPORTED Normal [facility] Comment on above: Performed By: #### U A, UMICAO #### [facility] [address], [place] [phone] Cash Accountant: Riky Salamanca MD Valproic acid level, totalon 02-04-2020 Valproic Acid Lvl 97 ug/mL 50 - 125 ug/mL [facility] Valproic Date last dose NOT REPORTED [employer] [place], [place] Valproic Dose amount NOT REPORTED [facility] [place] Val[facility] Time last dose NOT REPORTED [facility] [place] Cult,Urine,CCon 12-24-2019 Cult,Urine,CC Specimen Description .CLEAN CATCH URINE Special Requests [id number] Culture ESCHERICHIA COLI >[id number] CFU/ML Report Status FINAL 12/24/2019 SUSCEPTIBILITY Organism ESCHERICHIA COLI Method ROOPA Amikacin NOT REPORTED Ampicillin 8 SUSCEPTIBLE Ampicillin/Sulbactam NOT REPORTED Aztreonam <=1 SUSCEPTIBLE Cefazolin <=4 SUSCEPTIBLE Cefazolin sensitivity results can be used to predict the effectiveness of oral cephalosporins (eg. Cephalexin) in uncomplicated Urinary Tract Infections due to E. coli, K. pneumoniae, and P. mirabilis Cefepime NOT REPORTED Ceftriaxone <=1 SUSCEPTIBLE Ciprofloxacin >=4 RESISTANT Ertapenem NOT REPORTED ESBL NEGATIVE Gentamicin <=1 SUSCEPTIBLE Meropenem NOT REPORTED Nitrofurantoin <=16 SUSCEPTIBLE Tigecycline NOT REPORTED Tobramycin <=1 SUSCEPTIBLE Trimethoprim/Sulfa >=320 RESISTANT Piperacillin/Tazobact am <=4 SUSCEPTIBLE Normal [facility] Comment on above: Performed By: #### U A, UMICAO #### [facility] [address], [place] [phone] Cash Accountant: Riky Salamanca MD Microscopic Urinalysison Amorphous, UA NOT REPORTED None [employer] [facility] [facility] Work Phone: Bacteria, UA MANY Abnormal None [facility] Work Phone: Casts UA 2 TO 5 HYALINE Reference range defined for non-centrifuged specimen. [employer] Work Phone: Crystals UA NOT REPORTED None /HPF [facility] Work Phone: Epithelial Cells UA None [facility] Work Phone: Interpretation and review of laboratory results Abnormal [employer] Work Phone: Mucus, UA NOT REPORTED None [facility] Work Phone: Other Observations UA NOT REPORTED NOT REQ. [employer] Work Phone: RBC (U) [#/Vol] 2 TO 5 [facility] [employer] Work Phone: Comment on above: Reference range defi ana for non-centrifuged specimen. Renal Epithelial, Urine NOT REPORTED 0 /HPF [facility] Work Phone: Trichomonas, UA NOT REPORTED None [facility] Work Phone: WBC, UA TOO NUMEROUS TO COUNT [facility] [employer] Work Phone: Yeast, UA NOT REPORTED None [facility] Work Phone: - [facility] [employer] Work Phone: Urinalysison 12-21-2019 Bilirubin Urine Negative NEGATIVE [facility] Work Phone: Color, UA YELLOW YELLOW [facility] [employer] Work Phone: Glucose, Ur Negative NEGATIVE [facility] Work Phone: Interpretation and review of laboratory results Abnormal [employer] Work Phone: Ketones Ql (U) Negative NEGATIVE [employer] [facility] Work Phone: Leukocyte esterase Test strip Ql (U) LARGE Abnormal NEGATIVE [facility] Work Phone: Nitrite, Urine Negative NEGATIVE [facility] Work Phone: pH, UA 7.0 [facility] Work Phone: Protein (U) [Mass/Vol] Negative NEGATIVE [facility] Work Phone: Specific [place], UA 1.013 [facility] Work Phone: Turbidity UA CLOUDY Abnormal CLEAR [facility] Work Phone: Urinalysis Comments NOT REPORTED [facility] [employer] Work Phone: Urine Hgb Negative NEGATIVE [facility] Work Phone: Urobilinogen, Urine Normal Normal [facility] Work Phone: Urinalysis, Routineon 2019 Acetoacetic Acid,Ur Negative Normal NEG [facility] Comment on above: Performed By: #### U A, UMICAO #### [facility] [address] [place] [phone] Cash Accountant: Riky Salamanca MD Bilirubin, SemiQt,Ur Negative Normal [facility] Comment on above: Performed By: #### U A, UMICAO #### [facility] [address] [place] [phone] Cash Accountant: Riky Salamanca MD Color (U) YELLOW Normal YEL [facility] Comment on above: Performed By: #### U A, UMICAO #### [facility] [address] [place] [phone] Cash Accountant: Riky Salamanca MD Glucose Ql (U) Negative Normal NEG [facility] Comment on above: Performed By: #### U A, UMICAO #### [facility] [address] [place] [phone] Cash Accountant: Riky Salamanca MD Hemoglobin, Ur Negative Normal NEG [facility] Comment on above: Performed By: #### U A, UMICAO #### [facility] [address] [place] [phone] Cash Accountant: Riky Salamanca MD Leukocyte esterase Test strip Ql (U) LARGE Abnormal NEG [facility] Comment on above: Performed By: #### U A UMICAO #### [facility] [address] [place] [phone] Cash Accountant: Riky Salamanca MD Nitrite,Ur Negative Normal NEG [facility] Comment on above: Performed By: #### U A UMICAO #### [address] [phone] Cash Accountant: Riky Salamanca MD pH (U) 7.0 [pH] Normal 5.0-8.0 [facility] Comment on above: Performed By: #### U AAMORO #### [address] [phone] Cash Accountant: Riky Salamanca MD Protein Ql (U) Negative Normal NEG [facility] Comment on above: Performed By: #### U AAMORO #### [address] [phone] Cash Accountant: Riky Salamanca MD Specific gravity (U) [Rel density] 1.013 Normal 1.005-1.030 [facility] Comment on above: Performed By: #### U A, UMICAO #### [address] [phone] Cash Accountant: Riky Salamanca MD Turbidity CLOUDY Abnormal CLEAR [facility] Comment on above: Performed By: #### U ADIVYAICAO #### [facility] [address] [place] [phone] Cash Accountant: Riky Salamanca MD Urobilinogen,Ur Normal Normal NORM [facility] Comment on above: Performed By: #### U A, UMICAO #### [facility] [address] [place] [address] Cash Accountant: Riky Salamanca MD Comment NOT REPORTED Normal [facility] Comment on above: Performed By: #### U A, UMICAO #### [facility] [employer] [address] [place] [phone] Cash Accountant: Riky Salamanca MD Urinalysis,Microon 0 ----- Normal [facility] Comment on above: Performed By: #### U A, UMICAO #### [address] [phone] Cash Accountant: Riky Salamanca MD Bacteria LM.HPF (Urine sed) [#/Area] MANY Abnormal NONE [facility] Comment on above: Performed By: #### U A, UMICAO #### [facility] [employer] [address] [place] [phone] Cash Accountant: Riky Salamanca MD Casts LM.LPF (Urine sed) [#/Area] 2 TO 5 HYALINE Normal 0-8 [facility] Comment on above: Result Comment: Refe rence range defined for non-centrifuged specimen. Performed By: #### U A, UMICAO #### [facility] [employer] [address] [place] [phone] Cash Accountant: Riky Salamanca MD Epithelial cells LM.HPF (Urine sed) [#/Area] None Normal 0-5 [facility] Comment on above: Performed By: #### U A, UMICAO #### [address] [phone] Cash Accountant: Riky Salamanca MD RBC (U) [#/Vol] 2 TO 5 Normal 0-4 [facility] Comment on above: Result Comment: Refe rence range defined for non-centrifuged specimen. Performed By: #### U A, UMICAO #### [address] [place] [address] Cash Accountant: Riky Salamanca MD WBC (U) [#/Vol] TOO NUMEROUS TO COUNT Normal 0-5 [facility] Comment on above: Performed By: #### U A, UMICAO #### [facility] [address] [place] [phone] Cash Accountant: Riky Salamanca MD Amorphous sediment LM Ql (Urine sed) NOT REPORTED Normal NONE [facility] Comment on above: Performed By: #### U A, UMICAO #### [facility] [address] [place] [phone] Cash Accountant: Riky Salamanca MD Crystals LM Nom (Urine sed) NOT REPORTED Normal NONE [facility] Comment on above: Performed By: #### U A, UMICAO #### [facility] [employer] [address] [place] [phone] Cash Accountant: Riky Salamanca MD Epithelial, Renal NOT REPORTED Normal 0 [facility] Comment on above: Performed By: #### U A, UMICAO #### [facility] [address] [place] [phone] Cash Accountant: Riky Salamanca MD Mucus Strands NOT REPORTED Normal [facility] Comment on above: Performed By: #### U A, UMICAO #### [facility] [employer] [address] [place] [phone] Cash Accountant: Riky Salamanca MD Other Observations NOT REPORTED Normal NREQ [facility] Comment on above: Performed By: #### U A, UMICAO #### [facility] [address] [place] [phone] Cash Accountant: Riky Salamanca MD Trichomonas NOT REPORTED Normal NONE [facility] Comment on above: Performed By: #### U A UMICAO #### [facility] [address] [place] [address] [phone] Cash Accountant: Riky Salamanca MD Yeast LM Ql (Urine sed) NOT REPORTED Normal NONE [facility] Comment on above: Performed By: #### U EUGENIO Ram #### [facility] [employer] [address], [place] [phone] Cash Accountant: Riky Salamanca MD Microscopic Urinalysison Amorphous, UA NOT REPORTED None [place] Bacteria, UA MANY Abnormal None [place] Casts UA 0 TO 2 HYALINE Reference range defined for non-centrifuged specimen. [place] Crystals UA NOT REPORTED None /HPF [place] Epithelial Cells UA None [place] Interpretation and review of laboratory results Abnormal [place] Mucus, UA NOT REPORTED None [place] Other Observations UA NOT REPORTED NOT REQ. [place] RBC (U) [#/Vol] 2 TO 5 [place] Comment on above: Reference range defi ana for non-centrifuged specimen. Renal Epithelial, Urine NOT REPORTED 0 /HPF [place] Trichomonas, UA NOT REPORTED None [place] WBC, UA 50 TO 100 [place] Yeast, UA NOT REPORTED None [place] Urinalysison 09-28-2019 Bilirubin Urine Negative NEGATIVE [place] Color, UA YELLOW YELLOW [place] Glucose, Ur Negative NEGATIVE [place] Interpretation and review of laboratory results Abnormal [place] Ketones Ql (U) Negative NEGATIVE [place] Leukocyte esterase Test strip Ql (U) MODERATE Abnormal NEGATIVE [place] Nitrite, Urine Positive Abnormal NEGATIVE [place] pH, UA 6.5 [place] Protein (U) [Mass/Vol] Negative NEGATIVE [place] Specific [place], UA 1.015 [place] Turbidity UA CLOUDY Abnormal CLEAR [place] Urinalysis Comments NOT REPORTED [place] Urine Hgb Negative NEGATIVE [place] Urobilinogen, Urine Normal Normal [place] Microscopic Urinalysison Amorphous, UA NOT REPORTED None [place] Bacteria, UA MANY Abnormal None [place] Casts UA 0 TO 2 HYALINE Reference range defined for non-centrifuged specimen. [place] Crystals UA NOT REPORTED None /HPF [place] Epithelial Cells UA None [place] Interpretation and review of laboratory results Abnormal [place] Mucus, UA NOT REPORTED None [place] Other Observations UA NOT REPORTED NOT REQ. [place] RBC (U) [#/Vol] 5 TO 10 [place] Comment on above: Reference range defi ana for non-centrifuged specimen. Renal Epithelial, Urine NOT REPORTED 0 /HPF [place] Trichomonas, UA NOT REPORTED None [place] WBC, UA 20 TO 50 [place] Yeast, UA NOT REPORTED None [place] Urinalysison 09-04-2019 Bilirubin Urine Negative NEGATIVE [place] Color, UA YELLOW YELLOW [place] Glucose, Ur Negative NEGATIVE [place] Interpretation and review of laboratory results Abnormal [place] Ketones Ql (U) Negative NEGATIVE [place] Leukocyte esterase Test strip Ql (U) MODERATE Abnormal NEGATIVE [place] Nitrite, Urine Positive Abnormal NEGATIVE [place] pH, UA 6.5 [place] Protein (U) [Mass/Vol] Negative NEGATIVE [place] Specific [place], UA 1.011 [place] Turbidity UA CLOUDY Abnormal CLEAR [place] Urinalysis Comments NOT REPORTED [place] Urine Hgb TRACE Abnormal NEGATIVE [place] Urobilinogen, Urine Normal Normal [place] Microscopic Urinalysison Amorphous, UA NOT REPORTED None [place] Bacteria, UA MANY Abnormal None [place] Casts UA 10 TO 20 HYALINE Reference range defined for non-centrifuged specimen. [place] Crystals UA NOT REPORTED None /HPF [place] Epithelial Cells UA None [place] Interpretation and review of laboratory results Abnormal [place] Mucus, UA NOT REPORTED None [place] Other Observations UA NOT REPORTED NOT REQ. [place] RBC (U) [#/Vol] 5 TO 10 [place] Comment on above: Reference range defi ana for non-centrifuged specimen. Renal Epithelial, Urine NOT REPORTED 0 /HPF [place] Trichomonas, UA NOT REPORTED None [place] WBC, UA TOO NUMEROUS TO COUNT [place] Yeast, UA NOT REPORTED None [place] Urinalysison 08-31-2019 Bilirubin Urine Negative NEGATIVE [place] Color, UA YELLOW YELLOW [place] Glucose, Ur Negative NEGATIVE [place] Interpretation and review of laboratory results Abnormal [place] Ketones Ql (U) TRACE Abnormal NEGATIVE [place] Leukocyte esterase Test strip Ql (U) LARGE Abnormal NEGATIVE [place] Nitrite, Urine Negative NEGATIVE [place] pH, UA 6.5 [place] Protein (U) [Mass/Vol] TRACE Abnormal NEGATIVE [place] Specific [place], UA 1.017 [place] Turbidity UA CLOUDY Abnormal CLEAR [place] Urinalysis Comments NOT REPORTED [place] Urine Hgb Negative NEGATIVE [place] Urobilinogen, Urine Normal Normal [place] Microscopic Urinalysison Amorphous, UA NOT REPORTED None [place] Bacteria, UA MANY Abnormal None [place] Casts UA 5 TO 10 HYALINE Reference range defined for non-centrifuged specimen. [place] Crystals UA NOT REPORTED None /HPF [place] Epithelial Cells UA 0 TO 2 [place] Interpretation and review of laboratory results Abnormal [place] Mucus, UA NOT REPORTED None [place] Other Observations UA NOT REPORTED NOT REQ. [place] RBC (U) [#/Vol] 2 TO 5 [place] Comment on above: Reference range defi ana for non-centrifuged specimen. Renal Epithelial, Urine NOT REPORTED 0 /HPF [place] Trichomonas, UA NOT REPORTED None [place] WBC, UA TOO NUMEROUS TO COUNT [place] Yeast, UA NOT REPORTED None [place] Urinalysison 08-06-2019 Bilirubin Urine Negative NEGATIVE [place] Color, UA YELLOW YELLOW [place] Glucose, Ur Negative NEGATIVE [place] Interpretation and review of laboratory results Abnormal [place] Ketones Ql (U) Negative NEGATIVE [place] Leukocyte esterase Test strip Ql (U) LARGE Abnormal NEGATIVE [place] Nitrite, Urine Positive Abnormal NEGATIVE [place] pH, UA 6.5 [place] Protein (U) [Mass/Vol] Negative NEGATIVE [place] Specific [place], UA 1.017 [place] Turbidity UA CLOUDY Abnormal CLEAR [place] Urinalysis Comments NOT REPORTED [place] Urine Hgb TRACE Abnormal NEGATIVE [place] Urobilinogen, Urine Normal Normal [place] Basic Metabolic Panelon 06-19 Anion gap [Moles/Vol] 15 mmol/L 9 - 17 mmol/L [place] Bun/Cre Ratio NOT REPORTED [place] Calcium [Mass/Vol] 9.6 mg/dL 8.6 - 10.4 mg/dL [place] Chloride [Moles/Vol] 100 mmol/L 98 - 107 mmol/L [place] CO2 [Moles/Vol] 23 mmol/L 20 - 31 mmol/L [place] Creatinine [Mass/Vol] 0.94 mg/dL 0.7 - 1.2 mg/dL [place] GFR >60 >60 mL/min [place] GFR Non- >60 >60 mL/min [place] GFR/1.73 sq M predicted among non-blacks MDRD (S/P/Bld) [Vol rate/Area] NOT REPORTED [place] GFR/1.73 sq M predicted among non-blacks MDRD (S/P/Bld) [Vol rate/Area] [place] Comment on above: Average GFR for 50-5 9 years old: 93 mL/min/1.73sq m Chronic Kidney Disease: <60 mL/min/1.73sq m Kidney failure: <15 mL/min/1.73sq m eGFR calculated using average adult body mass. Additional eGFR calculator available at: http://www.Fitsistant/multiple_crcl_2011.htm Glucose [Mass/Vol] 100 mg/dL High 70 - 99 mg/dL [place] Potassium [Moles/Vol] 4.4 mmol/L 3.7 - 5.3 mmol/L [place] Sodium [Moles/Vol] 138 mmol/L 135 - 144 mmol/L [place] Urea nitrogen [Mass/Vol] 10 mg/dL 6 - 20 mg/dL [place] CBCon 07-07-2019 Erythrocyte distribution width (RBC) [Ratio] 14.5 % High 11.8 - 14.4 % [place] Hematocrit (Bld) [Volume fraction] 44.9 % 40.7 - 50.3 % [place] Hemoglobin (Bld) [Mass/Vol] 14.2 g/dL 13 - 17 g/dL [place] Interpretation and review of laboratory results Abnormal [place] MCH (RBC) [Entitic mass] 28.4 pg 25.2 - 33.5 pg [place] MCHC (RBC) [Mass/Vol] 31.6 g/dL 28.4 - 34.8 g/dL [place] MCV (RBC) [Entitic vol] 89.8 fL 82.6 - 102.9 fL [place] Platelet mean volume (Bld) [Entitic vol] 10.9 fL 8.1 - 13.5 fL [place] Platelets (Bld) [#/Vol] 230 10*3/uL [place] RBC (Bld) [#/Vol] 5.00 10*6/uL 4.21 - 5.77 m/uL [place] WBC (Bld) [#/Vol] 5.7 10*3/uL [place] WBC (Bld) [#/Vol] 0.0 10*3/uL 0.0 per 100 WBC M [place] Hepatic Function Panelon Albumin [Mass/Vol] 4.4 g/dL 3.5 - 5.2 g/dL [place] Albumin/Globulin [Mass ratio] 1.5 {ratio} [place] ALP [Catalytic activity/Vol] 142 U/L High 40 - 129 U/L [place] ALT [Catalytic activity/Vol] 93 U/L High 5 - 41 U/L [place] AST [Catalytic activity/Vol] 52 U/L High <40 [place] Bilirubin Ql (U) 0.22 mg/dL Low 0.3 - 1.2 mg/dL [place] Bilirubin, Indirect CANNOT BE CALCULATED 0 - 1 mg/dL [place] Bilirubin.direct [Mass/Vol] mg/dL <0.31 mg/dL [place] Globulin (S) [Mass/Vol] NOT REPORTED 1.5 - 3.8 g/dL [place] Protein [Mass/Vol] 7.3 g/dL 6.4 - 8.3 g/dL [place] Lipid Panelon 07-07-2019 Cholesterol [Mass/Vol] 179 mg/dL <200 [place] Comment on above: Cholesterol Guidelines: <200 Desirable 200-240 Borderline >240 Undesirable Cholesterol in HDL [Mass/Vol] 51 mg/dL >40 [place] Comment on above: HDL Guidelines: <40 Undesirable 40-59 Borderline >59 Desirable Cholesterol in LDL [Mass/Vol] 106 mg/dL 0 - 130 mg/dL [place] Comment on above: LDL Guidelines: <100 Desirable 100-129 Near to/above Desirable 130-159 Borderline >159 Undesirable Direct (measured) LDL and calculated LDL are not interchangeable tests. Cholesterol in VLDL [Mass/Vol] NOT REPORTED 1 - 30 mg/dL [place] Cholesterol.total/C holesterol in HDL [Mass ratio] 3.5 {ratio} <5 [place] Triglyceride [Mass/Vol] 111 mg/dL <150 [place] Comment on above: Triglyceride Guidelines: <150 Desirable 150-199 Borderline 200-499 High >499 Very high Based on AHA Guidelines for fasting triglyceride, August 2012. Otheron 07-07-2019 Interpretation and review of laboratory results Abnormal [place] Vital Signs Date Time Vital Sign Value Performing Clinician Facility 02-28-2021 18:20-0400 Body Temperature 98.71 [degF] [facility] 02-28-2021 18:20-0400 BP Diastolic 91 mm[Hg] [facility] 02-28-2021 18:20-0400 BP Systolic 149 mm[Hg] [facility] 02-28-2021 18:20-0400 Pulse (Heart Rate) 62 /min [facility] 02-28-2021 18:20-0400 Pulse Oximetry 97 % [facility] 02-28-2021 18:20-0400 Respiratory Rate 16 /min [facility] 02-01-2021 11:16-0400 BP Diastolic 69 mm[Hg] [facility] Work Phone: 02-01-2021 11:16-0400 BP Systolic 118 mm[Hg] [facility] Work Phone: 02-01-2021 11:16-0400 Pulse (Heart Rate) 88 /min [facility] Work Phone: 02-01-2021 11:16-0400 Respiratory Rate 14 /[facility] 02-01-2021 08:03-0400 Body Temperature 97.7 [degF] [facility] 01-27-2021 15:04-0500 Pulse Oximetry 99 % Lino Leon [facility] Work Phone: 01-26-2021 18:48-0500 BMI (Body Mass Index) 36 kg/m2 Lino Leon [facility] Work Phone: 01-26-2021 18:48-0500 Body weight 130.64 [facility] 01-26-2021 18:48-0500 Height 190.5 cm Lino Leon [facility] Work Phone: 10-07-2020 14:15-0500 BMI (Body Mass Index) 34.75 kg/m2 [facility] [place] [facility]-07-2020 14:15-0500 Body Temperature 99.19 [degF] [facility] [place] [facility]-2020 14:15-0500 Body weight 126.1 kg [facility] [employer] [place] 10-07-2020 14:15-0500 BP Diastolic 101 mm[Hg] [facility] [place] 10-07-2020 14:15-0500 BP Systolic 159 mm[Hg] [facility] [place] 10-07-2020 14:15-0500 Height 190.5 cm [place] 10-07-2020 14:15-0500 Pulse (Heart Rate) 88 /min [facility] [employer] [place] 10-07-2020 14:15-0500 Pulse Oximetry 98 % [place] 10-07-2020 14:15-0500 Respiratory Rate 16 /min Curry [facility] Encounters Encounter Date Encounter Type Care Provider Facility Start: 01-22-2023 ambulatory [facility] Facility: [facility] Start: 07-24-2022 ambulatory [facility] Facility: [facility] Start: 01-23-2022 End: 01-23-2022 Departed Referred [facility] Start: 03-05-2021 End: 03-06-2021 Emergency department patient visit LAURYN RYDER [facility] Start: 02-28-2021 End: 03-01-2021 Emergency department patient visit BETHANY Tovar [facility] Start: 02-28-2021 End: 02-28-2021 Emergency department patient visit Eric Billy Work Phone: [facility] Emergency Department Start: 02-21-2021 End: 02-28-2021 Evaluation and management of inpatient [facility] Start: 01-26-2021 End: 02-01-2021 Evaluation and management of inpatient [facility] Start: 01-26-2021 [facility] Start: 12-15-2020 End: 12-16-2020 Patient encounter procedure [facility] Start: 12-15-2020 End: 12-15-2020 Subsequent hospital visit by physician Lino [facility] Start: 12-13-2020 Patient encounter procedure [facility] Start: 12-09-2020 Patient encounter procedure [facility] Start: 12-08-2020 Patient encounter procedure [facility] Start: 10-07-2020 End: 10-07-2020 Emergency department patient visit [facility] Start: 10-07-2020 End: 10-07-2020 Emergency department patient visit Curry Davis Work Phone: [facility] ED Comment on above: Anger reaction (Prim luli Dx) Start: 10-01-2020 End: 10-02-2020 Patient encounter procedure [facility] Start: 10-01-2020 End: 10-01-2020 Subsequent hospital visit by physician Lino [facility] Start: 09-09-2020 End: 09-10-2020 Patient encounter procedure [facility] Start: 09-09-2020 End: 09-09-2020 Subsequent hospital visit by physician Lino [facility] Start: 09-03-2020 End: 09-03-2020 Patient encounter procedure [facility] Start: 09-02-2020 End: 09-02-2020 Subsequent hospital visit by physician Lino [facility] Start: 08-31-2020 End: 09-01-2020 Patient encounter procedure [facility] Start: 08-31-2020 End: 08-31-2020 Subsequent hospital visit by physician Lino [facility] Start: 07-28-2020 End: 07-29-2020 Patient encounter procedure [facility] Start: 07-28-2020 End: 07-28-2020 Subsequent hospital visit by physician Lino [facility] Start: 07-12-2020 End: 07-13-2020 [facility] Start: 07-12-2020 End: 07-12-2020 Subsequent hospital visit by physician Lino [facility] Start: 07-05-2020 Patient encounter procedure LINO BIRGISELL [facility] Start: 07-04-2020 Patient encounter procedure [facility] Start: 05-26-2020 End: 05-27-2020 [facility] Facility:[facility] Start: 05-12-2020 End: 05-13-2020 Patient encounter procedure [facility] Start: 05-12-2020 End: 05-12-2020 Subsequent hospital visit by physician Lino [facility] Start: 05-10-2020 Patient encounter procedure LINO BIRGISELL [facility] Start: 05-06-2020 [facility] Start: 04-25-2020 End: 04-26-2020 Patient encounter procedure LINO BIRGISELL [facility] Start: 04-25-2020 End: 04-25-2020 Subsequent hospital visit by physician Lino [facility] Start: 2020 End: 03-25-2020 Patient encounter procedure LINO EDWARD [facility] Start: 2020 End: 2020 Subsequent hospital visit by physician Lino [facility] Start: 03-23-2020 End: 2020 Patient encounter procedure LINO BIRGISELL [facility] Start: 03-23-2020 End: 03-23-2020 Subsequent hospital visit by physician Lino [facility] Start: 03-22-2020 Patient encounter procedure [facility] Start: 03-21-2020 Patient encounter procedure [facility] Start: 03-14-2020 End: 03-15-2020 Patient encounter procedure [facility] Start: 03-14-2020 End: 03-14-2020 Subsequent hospital visit by physician Lino [facility] Start: 03-11-2020 End: 03-12-2020 Patient encounter procedure [facility] Start: 03-11-2020 End: 03-11-2020 Subsequent hospital visit by physician Lino [facility] Start: 02-26-2020 End: 02-27-2020 Patient encounter procedure [facility] Start: 02-26-2020 End: 02-26-2020 Subsequent hospital visit by physician Lino [facility] Start: 02-25-2020 Patient encounter procedure [facility] Start: 02-04-2020 End: 02-05-2020 Patient encounter procedure [facility] Start: 02-04-2020 End: 02-04-2020 Subsequent hospital visit by physician Lino [facility] Start: 02-04-2020 End: 02-04-2020 Patient encounter procedure [facility] Start: 02-04-2020 End: 02-04-2020 Subsequent hospital visit by physician Lino [facility] Start: 12-21-2019 End: 12-22-2019 Patient encounter procedure ANDREI GAY [facility] Start: 12-21-2019 End: 12-21-2019 Subsequent hospital visit by physician Lino [facility] Start: 10-30-2019 End: 10-30-2019 Subsequent hospital visit by physician Lino Leon Work Phone: [facility] Start: 09-28-2019 End: 09-28-2019 Subsequent hospital visit by physician Lino [facility] Start: 09-04-2019 End: 09-04-2019 Subsequent hospital visit by physician Lino [facility] Start: 08-31-2019 End: 08-31-2019 Subsequent hospital visit by physician Lino [facility] Start: 08-06-2019 End: 08-06-2019 Subsequent hospital visit by physician Lino [facility] Start: 07-07-2019 End: 07-07-2019 Subsequent hospital visit by physician Lino [facility] Start: 07-06-2019 End: 07-06-2019 Subsequent hospital visit by physician Lino [facility] Procedures Date Procedure Procedure Detail Performing Clinician Start: 01-26-2021 COVID-19, RAPID Michael Leary Work Phone: Start: 01-26-2021 Assay of ethanol Michael Leary Work Phone: Start: 01-26-2021 Blood count complete auto&auto difrntl wbc Michael Leary Work Phone: Start: 12-15-2020 Basic metabolic pane l calcium total Jon Kerr Work Phone: Start: 10-07-2020 Urinalysis microscopic only LINO MENJIVARGISELL Start: 10-07-2020 Urnls dip stick/tabl et rgnt auto w/o microscopy LINO MENJIVARGISELL Start: 10-07-2020 Urinalysis microscopic only Curry Davis Work Phone: Start: 10-07-2020 Urnls dip stick/tabl et rgnt auto w/o microscopy Curry Davis Work Phone: Start: 10-01-2020 Culture bacterial quanttative colony count urine LINO BIROS Start: 10-01-2020 Urinalysis microscopic only LINO BIROS Start: 10-01-2020 Urnls dip stick/tabl et rgnt auto w/o microscopy LINO BIROS Start: 10-01-2020 Urinalysis microscopic only Andrei Climo Work Phone: Start: 10-01-2020 Urnls dip stick/tabl et rgnt auto w/o microscopy Andrei Climo Work Phone: Start: 09-09-2020 Basic metabolic pane l calcium total LINO BIROS Start: 09-09-2020 Basic metabolic pane l calcium total Andrei Climo Work Phone: Start: 09-02-2020 Culture bacterial quanttative colony count urine LINO BIROS Start: 09-02-2020 Urinalysis microscopic only Andrei Climo Work Phone: Start: 09-02-2020 Urnls dip stick/tabl et rgnt auto w/o microscopy Andrei Climo Work Phone: Start: 08-31-2020 Culture bacterial quanttative colony count urine LINO BIROS Start: 08-31-2020 Urinalysis microscopic only Andrei Climo Work Phone: Start: 08-31-2020 Urnls dip stick/tabl et rgnt auto w/o microscopy Andrei Climo Work Phone: Start: 07-28-2020 Culture bacterial quanttative colony count urine LINO BIROS Start: 07-28-2020 Urinalysis microscopic only LINO BIROS Start: 07-28-2020 Urnls dip stick/tabl et rgnt auto w/o microscopy LINO BIROS Start: 07-28-2020 Urinalysis microscopic only Andrei Climo Work Phone: Start: 07-28-2020 Urnls dip stick/tabl et rgnt auto w/o microscopy Andrei Climo Work Phone: Start: 07-12-2020 Culture bacterial quanttative colony count urine LINO BIROS Start: 07-12-2020 Urinalysis microscopic only Andrei Climo Work Phone: Start: 07-12-2020 Urnls dip stick/tabl et rgnt auto w/o microscopy Andrei Climo Work Phone: Start: 05-26-2020 ANES LWR INTST NDSC NOS SOLOMON ALTENHOF Start: 05-26-2020 Colsc flx w/removal lesion by hot bx forceps VIPUL SANTOS Start: 05-11-2020 Culture bacterial quanttative colony count urine LINO LEON Start: 05-11-2020 Urinalysis microscopic only Andrei [employer] Work Phone: Start: 05-11-2020 Urnls dip stick/tabl et rgnt auto w/o microscopy Andrei [employer] Work Phone: Start: 05-10-2020 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 LINOKATHERINE LEON Start: 05-06-2020 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 LINO EDWARD Start: 04-25-2020 Acute hepatitis panel K TOMASZ EDWARD Start: 04-25-2020 C-reactive protein BRITTANEYGuy LEON Start: 04-25-2020 Comprehensive metabo lic panel LINO EDWARD Start: 04-25-2020 Acute hepatitis panel R cherelle Climo Work Phone: Start: 04-25-2020 C-reactive protein Moonachie y Climo Work Phone: Start: 04-25-2020 Comprehensive metabo lic panel Andrei Climo Work Phone: Start: 2020 Hepatic function panel Andrei Climo Work Phone: Start: 03-22-2020 Hepatic function panel LINO EDWARD Start: 03-21-2020 Hepatic function panel LINO EDWARD Start: 03-14-2020 Blood count complete auto&auto difrntl wbc LINO EDWARD Start: 03-14-2020 Creatinine blood NOE Carpio EDWARD Start: 03-14-2020 Hepatic function panel LINO EDWARD Start: 03-14-2020 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 LINO BIROS Start: 03-14-2020 Blood count complete auto&auto difrntl wbc [employer] Work Phone: Start: 03-14-2020 Creatinine blood [employer] Work Phone: Start: 03-14-2020 Hepatic function panel [employer] Work Phone: Start: 03-11-2020 Blood count complete auto&auto difrntl wbc LINO LEON Start: 03-11-2020 Creatine kinase total K TOMASZ LEON Start: 03-11-2020 Hepatic function panel LINO LEON Start: 03-11-2020 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 LINO LEON Start: 02-26-2020 Assay of blood/uric acid [employer] Work Phone: Start: 02-26-2020 Basic metabolic pane l calcium total [employer] Work Phone: Start: 02-04-2020 Culture bacterial quanttative colony count urine LINO LEON Start: 02-04-2020 Urinalysis microscopic only LINO LEON Start: 02-04-2020 Urnls dip stick/tabl et rgnt auto w/o microscopy LINO LEON Start: 02-04-2020 Assay of ammonia NOE LEON Start: 02-04-2020 Drug assay valproic dipropylacetic acid total LINO LEON Start: 02-04-2020 Urinalysis microscopic only [employer] Work Phone: Start: 02-04-2020 Urnls dip stick/tabl et rgnt auto w/o microscopy [employer] Work Phone: Start: 02-04-2020 Assay of ammonia Jon Kerr Work Phone: Start: 02-04-2020 Drug assay valproic dipropylacetic acid total Jon Kerr Work Phone: Start: 12-21-2019 Culture bacterial quanttative colony count urine LINO LEON Start: 12-21-2019 Urinalysis microscopic only [employer] Work Phone: Start: 12-21-2019 Urnls dip stick/tabl et rgnt auto w/o microscopy Andrei Climo Work Phone: Start: 09-28-2019 Urinalysis microscopic only Jon Kerr Work Phone: Start: 09-28-2019 Urnls dip stick/tabl et rgnt auto w/o microscopy Jon Kerr Work Phone: Start: 09-04-2019 Urinalysis microscopic only Andrei Climo Work Phone: Start: 09-04-2019 Urnls dip stick/tabl et rgnt auto w/o microscopy Andrei Climo Work Phone: Start: 08-31-2019 Urinalysis microscopic only Andrei Climo Work Phone: Start: 08-31-2019 Urnls dip stick/tabl et rgnt auto w/o microscopy Andrei Climo Work Phone: Start: 08-06-2019 Urinalysis microscopic only Andrei Climo Work Phone: Start: 08-06-2019 Urnls dip stick/tabl et rgnt auto w/o microscopy Andrei Climo Work Phone: Start: 07-07-2019 [object Object] Lino Leon Comment on above: The [employer] ECLIA as say is used. Results obtained with different assay methods cannot be used interchangeably. Start: 07-07-2019 Basic metabolic pane l calcium total Jennifer Bryant Work Phone: Start: 07-07-2019 Blood count complete automated Jennifer Bryant Work Phone: Start: 07-07-2019 Hepatic function panel Jennifer Bryant Work Phone: Start: 07-07-2019 Lipid panel Jennifer Tony Bartolome bill Work Phone: Start: 07-07-2019 PSA screening Jennifer G Erin moreno Work Phone: Plan of Treatment Date Care Activity Detail Author Start: 04-21-2029 DTaP/Tdap/Td vaccine (2 - Td) DTaP/Tdap/Td vaccine (2 - Td) [place] Start: 07-07-2024 Lipid panel Lipid screen [place], [place] Start: 07-07-2024 Lipid screen Lipid screen [place] Start: 07-23-2023 Lipid screen Lipid screen [place] Start: 09-09-2021 Creatinine measurement Creatinine mo [place] Start: 09-09-2021 Potassium monitoring Potassium monit [place] Start: 07-23-2021 Diabetes screen Diabetes screen [place], [place] Start: 04-25-2021 Creatinine measurement Creatinine mo [place] Start: 04-25-2021 Potassium monitoring Pot[place] monit [place] Start: 03-14-2021 Creatinine measurement Creatinine mo [place] Start: 02-25-2021 Creatinine measurement Creatinine mo [place] Start: 02-25-2021 Potassium monitoring Pot[place] monit [place] Start: 07-19-2020 Influenza vaccination [place] Start: 07-07-2020 Creatinine monitoring Creatinine mon [place] Start: 07-07-2020 [facility] Work Phone: Start: 07-07-2020 Potassium monitoring Potassium monit [place] Start: 05-06-2020 Hospital Encounter 05/06/2020 Hospital Encounter Lab [facility] Start: 03-13-2020 Hospital Encounter 03/13/2020 Hospital Encounter Lab [facility] Start: 07-23-2019 Creatinine monitoring Creatinine mon [place] Start: 07-23-2019 Potassium monitoring Pot[place] monit [place] Start: 07-19-2019 Influenza vaccination Flu vaccine (# 1) [place] Start: 05-05-2019 Annual Wellness Visi t (AWV) Annual Wellness Visit (AWV) [place] Start: 2010 Colon cancer screen colonoscopy Colon cancer screen colonoscopy [place] Start: 2010 Screening for malign ant neoplasm of colon Colon cancer screen colon[place] Start: 2010 Shingles Vaccine (1 of 2) Shingles Vaccine (1 of 2) [place] Start: 1976 COVID-19 Vaccine (1) COVID-19 Vaccin e (1) [facility] [employer] Work Phone: Start: 1975 HIV screen HIV screen [place], [place] Start: 1975 HIV screening HIV screen [facility] [place], [place] Start: 1966 Pneumococcal 0-64 ye ars Vaccine (1 of 1 - PPSV23) Pneumococcal 0-64 years Vaccine (1 of 1 - PPSV23) [place], [place] Start: 1960 Hepatitis C screen Hepatitis C scree n [place] Start: 1960 Hepatitis C screening Hepatitis C sc reen [place] End: 02-04-2020 Culture, Urine Culture, Urine Microbiology Routine Once for 1 Occurrences starting 02/04/2020 until 02/04/2020 [place] Comment on above: Once for 1 Occurrenc es starting 02/04/2020 until 02/04/2020 Culture, Urine [place] End: 05-11-2020 Culture, Urine Culture, Urine Microbiology Routine Once for 1 Occurrences starting 05/11/2020 until 05/11/2020 [place] Comment on above: Once for 1 Occurrenc es starting 05/11/2020 until 05/11/2020 End: 07-12-2020 Culture, Urine Culture, Urine Microbiology Routine Once for 1 Occurrences starting 07/12/2020 until 07/12/2020 [place] Comment on above: Once for 1 Occurrenc es starting 07/12/2020 until 07/12/2020 End: 07-28-2020 Culture, Urine [place] Comment on above: Once for 1 Occurrenc es starting 07/28/2020 until 07/28/2020 End: 08-31-2020 Culture, Urine Culture, Urine Microbiology Routine Once for 1 Occurrences starting 08/31/2020 until 08/31/2020 [place] Comment on above: Once for 1 Occurrenc es starting 08/31/2020 until 08/31/2020 End: 09-02-2020 Culture, Urine Culture, Urine Microbiology Routine Once for 1 Occurrences starting 09/02/2020 until 09/02/2020 [place] Comment on above: Once for 1 Occurrenc es starting 09/02/2020 until 09/02/2020 End: 10-01-2020 Culture, Urine Culture, Urine Microbiology Routine Once for 1 Occurrences starting 10/01/2020 until 10/01/2020 [place] Comment on above: Once for 1 Occurrenc es starting 10/01/2020 until 10/01/2020 End: 03-14-2020 Hepatitis C RNA, quantitative, PCR Hepatitis C RNA, quantitative, PCR Lab Routine Once for 1 Occurrences starting 03/14/2020 until 03/14/2020 [place] Comment on above: Once for 1 Occurrenc es starting 03/14/2020 until 03/14/2020 Hepatitis C RNA, quantitative, PCR Hepatitis C RNA, quantitative, PCR Lab Routine 03/14/2020 9:45 AM EDT [place] End: 10-30-2019 Urinalysis Urinalysis Lab STAT Once for 1 Occurrences starting 10/30/2019 until 10/30/2019 [facility] Phone: Comment on above: Once for 1 Occurrenc es starting 10/30/2019 until 10/30/2019 Urinalysis Urinalysis Lab S TAT 10/30/2019 5:[address] [facility] Phone: End: 08-06-2019 Urine culture clean catch Urine culture clean catch Microbiology Routine Once for 1 Occurrences starting 08/06/2019 until 08/06/2019 [place] Comment on above: Once for 1 Occurrenc es starting 08/06/2019 until 08/06/2019 Urine culture clean catch [place] End: 08-31-2019 Urine culture clean catch Urine culture clean catch Microbiology Routine Once for 1 Occurrences starting 08/31/2019 until 08/31/2019 [place] Comment on above: Once for 1 Occurrenc es starting 08/31/2019 until 08/31/2019 End: 09-04-2019 Urine culture clean catch Urine culture clean catch Microbiology Routine Once for 1 Occurrences starting 09/04/2019 until 09/04/2019 [place] Comment on above: Once for 1 Occurrenc es starting 09/04/2019 until 09/04/2019 End: 12-21-2019 Urine culture clean catch Urine culture clean catch Microbiology Routine Once for 1 Occurrences starting 12/21/2019 until 12/21/2019 [facility] Phone: Comment on above: Once for 1 Occurrenc es starting 12/21/2019 until 12/21/2019 End: 09-28-2019 Urine culture clean catch Urine culture clean catch Microbiology Routine Once for 1 Occurrences starting 09/28/2019 until 09/28/2019 [facility] [place] Comment on above: Once for 1 Occurrenc es starting 09/28/2019 until 09/28/2019 End: 10-30-2019 Urine culture clean catch Urine culture clean catch Microbiology STAT Once for 1 Occurrences starting 10/30/2019 until 10/30/2019 [facility] Phone: Comment on above: Once for 1 Occurrenc es starting 10/30/2019 until 10/30/2019 Immunizations Immunization Date Immunization Notes Care Provider Fa rosa 04-21-2019 tetanus toxoid, redu eris diphtheria toxoid, and acellular pertussis vaccine, adsorbed Lino Menjivargisell [place] Payers Date Payer Category Payer Self-pay [id number] 2019 Medicare [employer] [place] [facility] M[facility] AND [place] [id number] 2019-Present [id number] 2014 Private Health Insurance [employer] [facility] [employer] [facility] DUAL xxxxxxxxxxxx 2014-Present [phone] [address] [address] [place] [address] xxxxxxxxxxxx [id number] 2014 Private Health Insurance [id number] .[id number] 1960 Unknown [id number] 2.16.840.1.898624.3.579.2 .177 1960 Unknown [id number] 2.16.840.1.229021.3.579.2 .177 1960 Unknown [id number] 2.16.840.1.651631.3.579.2 .177 1960 Unknown [id number] 2.16.840.1.287123.3.579.2 .177 1960 Unknown [id number] 2.16.840.1.451779.3.579.2 .177 1960 Unknown [id number] 2.16.840.1.871657.3.579.2 .177 1960 Unknown [id number] 2.16.840.1.124677.3.579.2 .177 1960 Unknown [id number] 2.16.840.1.861312.3.579.2 .177 1960 Unknown [id number] 2.16.840.1.611326.3.579.2 .177 1960 Unknown [id number] 2.16.840.1.610517.3.579.2 .177 1960 Unknown [id number] 2.16.840.1.578792.3.579.2 .177 1960 Unknown [id number] 2.16.840.1.444502.3.579.2 .177 1960 Unknown [id number] 2.16.840.1.557927.3.579.2 .177 1960 Unknown [id number] 2.16.840.1.685562.3.579.2 .177 1960 Unknown [id number] 2.16.840.1.543200.3.579.2 .177 1960 Unknown [id number] 2.16.840.1.544602.3.579.2 .177 1960 Unknown [id number] 2.16.840.1.827620.3.579.2 .177 1960 Unknown [id number] 2.16.840.1.748771.3.579.2 .177 1960 Unknown [id number] 2.16.840.1.640938.3.579.2 .177 1960 Unknown [id number] 2.16.840.1.977598.3.579.2 .177 1960 Unknown [id number] 2.16.840.1.873761.3.579.2 .177 1960 Unknown [id number] 2.16.840.1.521964.3.579.2 .177 1960 Unknown [id number] 2.16.840.1.450514.3.579.2 .177 1960 Unknown [id number] 2.16.840.1.936902.3.579.2 .177 1960 Unknown [id number] 2.16.840.1.843510.3.579.2 .177 1960 Unknown [id number] 2.16.840.1.649395.3.579.2 .177 1960 Unknown [id number] 2.16.840.1.368623.3.579.2 .177 1960 Unknown [id number] 2.16.840.1.100229.3.579.2 .176 1960 Unknown [id number] 2.16.840.1.959854.3.579.2 .176 1960 Unknown [id number] 2.16.840.1.448623.3.579.2 .903 1960 Unknown [id number] 2.16.840.1.578972.3.579.2 .903 1960 Unknown [id number] 2.16.840.1.864507.3.579.2 .903 1960 Unknown [id number] 2.16.840.1.006982.3.579.2 .647 Medicare SELF PAY INSURANCE [id number] Unknown [id number] 2.16.840.1.003929.3.579.2 .462 Unknown [id number] 2.16.840.1.448359.3.579.2 .462 Social History Date Type Detail Facility Start: 04-21-2019 End: 10-07-2020 Tobacco smoking status NHIS Former smoker [place], [place] History of tobacco use Cigarette Smoker [place] Start: 04-21-2019 Alcohol intake Yes [place], [place] Start: 10-10-2015 Tobacco Comment pt offered quentin otine replacement and refused at this time [place] Start: 09-03-2014 Alcohol Comment drinks unknown amounts of alcohol [place] Sex Assigned At Not on file [place] Start: 04-21-2019 End: 10-07-2020 Alcohol intake Current drinker of alcohol (finding) [place] Start: 04-21-2019 End: 02-28-2021 Tobacco use and exposure Never used [place] Start: 01-27-2021 [facility] [employer] Work Phone: Start: 01-27-2021 Alcohol intake Ex-drinker (finding) [facility] [employer] Work Phone: Exposure to SARS-CoV -2 (event) Not sure [facility] [employer] Work Phone: Start: 02-28-2021 [facility] Start: 02-28-2021 Alcohol intake Lifetime non-d roseanna (finding) [facility] Start: 02-21-2021 History SDOH Alcohol Frequency 1 [facility] Start: 05-24-2021 [facility] Work Phone: Start: 1960 Sex Assigned At Male En[facility] Work Phone: Evaluation note Note Date & Type Note Facility Evaluation note No assessment information availa nina [facility] Work Phone: Advance Directives No Advanced Directives Records FoundDocuments on File Type Date Recorded Patient Communications Editor Expl anation Advance Directives and Livin g Will 01/01/2014 1:12 PM Advance Directives and Livin g Will 06/30/2014 3:43 PM Advance Directives and Livin g Will Power of Workday Financials Consultant Latest Code Status on File Code Status Date Activated Date Inactivated Comments Full Code 10/10/2015 8:10 PM 10/17/2015 4:27 PM Full Code 09/18/2015 2:14 AM 09/23/2015 4:17 PM Full Code 07/02/2015 12:34 AM 07/04/2015 6:07 PM Full Code 03/15/2015 9:16 AM 03/23/2015 5:00 PM Full Code 03/09/2015 3:46 PM 03/11/2015 1:05 PM Documents on File Type Date Recorded Patient Communications Editor Expl anation ACP-Advance Directive 01/01/2014 1:12 PM ACP-Advance Directive 06/30/2014 3:43 PM ACP-Advance Directive ACP-Power of Workday Financials Consultant Documents on File Type Date Recorded Patient Communications Editor Expl anation ACP-Advance Directive 01/01/2014 1:12 PM ACP-Advance Directive 06/30/2014 3:43 PM ACP-Advance Directive ACP-Power of Workday Financials Consultant Latest Code Status on File Code Status Date Activated Date Inactivated Comments Full Code 01/26/2021 11:09 PM Full Code 10/10/2015 8:10 PM 10/17/2015 4:27 PM Full Code 09/18/2015 2:14 AM 09/23/2015 4:17 PM Full Code 07/02/2015 12:34 AM 07/04/2015 6:07 PM Full Code 03/15/2015 9:16 AM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
== END | disposition home or self-care (01) ==
LOC: CT 08:02
PROVIDERS: PCP Family Medicine; Referring Provider Family Medicine; Visit Provider Family Medicine
DX: E44.0 Moderate protein-calorie malnutrition (principal)
CPT/HCPCS: 74177; Q9967